=== PATIENT | male | born 1940 | race Caucasian/White ===

== ENCOUNTER 2022-03-15 23:15 | Inpatient (IN) | payer MEDICARE ==
[2022-03-15] MEDS ORDERED: MORPHINE SULFATE 4 MG/ML SYRINGE IV STA (23:19)
[2022-03-15] MEDS ORDERED: ONDANSETRON 4 MG/2 ML VIAL IVP STA (23:19)
[2022-03-15] MEDS ORDERED: SODIUM CHLORIDE 0.9% 1,000 ML IV STA (23:19)
--- NOTE | 2022-03-15 23:21 | ED ---
Abdominal Pain HPI - General Chief Complaint: Abdominal Pain Stated Complaint: Abdominal pain Time Seen by Provider: 03/15/22 23:17 Source: patient Mode of arrival: EMS Limitations: no limitations - Related Data Home Medications Medication Instructions Recorded Confirmed Acetaminophen [Tylenol] 650 mg PO Q4H PRN 01/01/22 01/01/22 Aspirin EC [Ecotrin Low Dose] 81 mg PO HS 01/01/22 01/01/22 Atorvastatin [Lipitor] 80 mg PO HS 01/01/22 01/01/22 Docusate [Colace] 100 mg PO DAILY PRN 01/01/22 01/01/22 Famotidine [Pepcid] 20 mg PO DAILY 01/01/22 01/01/22 Levothyroxine Sodium [Synthroid] 150 mcg PO DAILY 01/01/22 01/01/22 Metoprolol Tartrate [Lopressor] 12.5 mg PO BID 01/01/22 01/01/22 Potassium Chloride [Potassium 10 meq PO HS 01/01/22 01/01/22 Chloride ER] Sacubitril/Valsartan [Entresto 49 1 tab PO BID 01/01/22 01/01/22 mg-51 mg Tablet] Tamsulosin HCl [Flomax] 0.4 mg PO DAILY 01/01/22 01/01/22 Previous Rx's Medication Instructions Recorded Apixaban [Eliquis] 5 mg PO BID #60 tab 01/03/22 Furosemide [Lasix] 20 mg PO DAILY #30 tab 01/05/22 Insulin Glargine [Lantus Vial] 14 unit SQ HS #0 01/05/22 hydrALAZINE HCL [Apresoline] 25 mg PO TID #90 tab 01/05/22 Allergies Allergy/AdvReac Type Severity Reaction Status Date / Time Penicillins Allergy Rash/Hives Verified 03/15/22 23:20 on entire body Review of Systems ROS Statement: Those systems with pertinent positive or pertinent negative responses have been documented in the HPI. ROS Other: All systems not noted in ROS Statement are negative. Past Medical History Past Medical History: Cancer, Diabetes Mellitus, Hypertension, Myocardial Infarction ([place]), Thyroid Disorder Additional Past Medical History / Comment(s): prostate cancer, pacer/defibrillat or Last Myocardial Infarction Date:: 2017 History of Any Multi-Drug Resistant Organisms: None Reported Past Surgical History: Coronary Bypass/CABG, Heart Catheterization With Stent, Orthopedic Surgery, Tonsillectomy Additional Past Surgical History / Comment(s): triple bypass and then pacer/defib placed Past Anesthesia/Blood Transfusion Reactions: No Reported Reaction Date of Last Stent Placement:: 2017 Past Psychological History: No Psychological Hx Reported Smoking Status: Never smoker Past Alcohol Use History: None Reported Past Drug Use History: None Reported - Past Family History Mother Family Medical History: Cancer Father Family Medical History: Congestive Heart Failure (CHF) General Exam Limitations: no limitations Course Vital Signs 03/15/22 23:16 Temperature 99.6 F Pulse Rate 103 H Respiratory 22 Rate Blood Pressure 138/70 O2 Sat by Pulse 95 Oximetry Medical Decision Making - Lab Data Result diagrams: 03/15/22 23:22 Lab Results 03/15/22 03/15/22 Range/Units 23:22 23:22 WBC 9.5 (3.8-10.6) k/uL RBC 4.35 (4.30-5.90) m/uL Hgb 12.6 L (13.0-17.5) gm/dL Hct 39.2 (39.0-53.0) % MCV 90.2 (80.0-100.0) fL MCH 28.9 (25.0-35.0) pg MCHC 32.1 (31.0-37.0) g/dL RDW 14.8 (11.5-15.5) % Plt Count 171 (150-450) k/uL MPV 9.1 Neutrophils % 94 % Lymphocytes % 3 % Monocytes % 2 % Eosinophils % 1 % Basophils % 0 % Neutrophils # 8.9 H (1.3-7.7) k/uL Lymphocytes # 0.2 L (1.0-4.8) k/uL Monocytes # 0.2 (0-1.0) k/uL Eosinophils # 0.0 (0-0.7) k/uL Basophils # 0.0 (0-0.2) k/uL Plasma Lactic Acid Álvaro 1.2 (0.7-2.0) mmol/L Disposition Clinical Impression: Abdominal pain, Abdominal colic, Acute cholecystitis Disposition: ADMITTED IP TO THIS [facility] Condition: Fair Is patient prescribed a controlled substance at d/c from ED?: No Referrals: Nonstaff,Physician [Primary Care Provider] - 1-2 days
[2022-03-15 23:38] LABS: Basophils % (A) 0 %; Eosinophils % (A) 1 %; HCT 39.2 % (39.0-53.0); HGB 12.6 gm/dL (13.0-17.5); Lymphocytes # (A) 0.2 k/uL (1.0-4.8); Lymphocytes % (A) 3 %; MCH 28.9 pg (25.0-35.0); MCHC 32.1 g/dL (31.0-37.0); MCV 90.2 fL (80.0-100.0); Mean Platelet Volume 9.1; Monocytes # (A) 0.2 k/uL (0-1.0); Monocytes % (A) 2 %; Neutrophils # (A) 8.9 k/uL (1.3-7.7); Neutrophils % (A) 94 %; Platelet Count 171 k/uL (150-450); RBC 4.35 m/uL (4.30-5.90); RDW 14.8 % (11.5-15.5); WBC 9.5 k/uL (3.8-10.6)
[2022-03-15 23:49] LABS: ALT 16 U/L (4-49); AST 27 U/L (17-59); African American GFR (CKD) 69 (>60 ml/min/1.73 sqM); Albumin 3.1 g/dL (3.5-5.0); Alkaline Phosphatase 89 U/L (38-126); Amylase <30 U/L (30-110); Anion Gap 7 mmol/L; Blood Urea Nitrogen 36 mg/dL (9-20); Calcium 9.2 mg/dL (8.4-10.2); Carbon Dioxide 24 mmol/L (22-30); Chloride 104 mmol/L (98-107); Glucose 228 mg/dL (74-99); INR 1.1 (<1.2); Lipase 17 U/L (23-300); Non-African American GFR(CKD) 60 (>60 ml/min/1.73 sqM); Partial Thromboplastin Time 29.2 sec (22.0-30.0); Potassium 4.2 mmol/L (3.5-5.1); Prothrombin Time 11.4 sec (9.0-12.0); Sodium 135 mmol/L (137-145); Total Bilirubin 0.8 mg/dL (0.2-1.3); Total Protein 6.3 g/dL (6.3-8.2)
[2022-03-15] MEDS ORDERED: NALOXONE 0.4 MG/ML 1 ML VIAL IV PRN (23:53)
[2022-03-15] MEDS ORDERED: ONDANSETRON 4 MG/2 ML VIAL IVP PRN (23:53)
[2022-03-16] MEDS: LEVOFLOXACIN 500MG-D5W PMX 500 MG in DEXTROSE/WATER 1 100ML.BAG IVPB SCH (02:02)
[2022-03-16 04:32] LABS: Albumin 2.6 g/dL (3.5-5.0); Calcium 8.8 mg/dL (8.4-10.2); Magnesium 1.9 mg/dL (1.6-2.3); Phosphorus 3.8 mg/dL (2.5-4.5); Potassium 4.5 mmol/L (3.5-5.1); Total Bilirubin 0.9 mg/dL (0.2-1.3); Total Protein 5.6 g/dL (6.3-8.2)
[2022-03-16 04:50] LABS: HCT 36.7 % (39.0-53.0); HGB 12.1 gm/dL (13.0-17.5); MCH 30.5 pg (25.0-35.0); MCHC 33.1 g/dL (31.0-37.0); MCV 92.1 fL (80.0-100.0); Mean Platelet Volume 9.9; Platelet Count 139 k/uL (150-450); RBC 3.98 m/uL (4.30-5.90); RDW 15.3 % (11.5-15.5)
[2022-03-16 05:42] LABS: Basophils % (A) 0 %; Eosinophils % (A) 0 %; Lymphocytes % (A) 7 %; Monocytes % (A) 3 %; Neutrophils % (A) 85 %
[2022-03-16] MEDS: metroNIDAZOLE-NS PMX 500 MG in SALINE 1 100ML.BAG IVPB SCH ×4 (05:58→22:58)
--- NOTE | 2022-03-16 07:21 | P.HPIM ---
History of Present Illness H&P Date: 03/16/22 Patient is an 81-year-old male with a PMH of A. fib on Eliquis, hypertension, hyperlipidemia, type II DM, CAD, and hypothyroidism who was transferred to the emergency room from [facility] for complaints of abdominal pain. Patient reports that he initially began experiencing right upper quadrant abdominal discomfort 3 weeks ago. He reports mild anorexia but denied nausea, vomiting, or diarrhea. The patient is somewhat of a poor historian and is slow to respond but states that the pain is not strictly postprandial. He also reports intermittent shortness of breath which is chronic and unchanged. The patient underwent a CT abdomen and pelvis at the transferring facility which revealed mild gallbladder wall thickening with cholelithiasis along with a well-circumscribed lobulated peripherally enhancing collection in the anterior aspect of the abdomen extending inferiorly into the pelvis 3.1 x 7.9 cm, possibly due to gallbladder perforation or infectious/inflammatory colitis. Laboratory evaluation was remarkable for platelet count of 139, BUN 36, creatinine 1.4, unremarkable LFTs, lactic acid 2.0 from the transferring facility which improved to 1.2 upon repeat. Of note, case was discussed with general surgeon by the ED physician. I reiterated to the ED physician that the patient would be best suited being admitted under the surgery service. Provider noted that surgeon on-call insisted that the patient be admitted under medicine. Review of systems: Pertinent positives and negatives as discussed in HPI, a complete review of systems was performed and all other systems are negative. Physical examination: General: non toxic, no distress, appears at stated age, normal weight Derm: no unusual rashes/lesions, warm Head: atraumatic, normocephalic, symmetric Eyes: EOMI, no lid lag, anicteric sclera, pupils equal round reactive to light ENT: Nose and ears atraumatic Neck: No cervical lymphadenopathy, trachea midline, supple Mouth: no lip lesion, mucus membranes moist Cardiovascular: S1S2 reg, no murmur, positive dorsalis pedis pulse bilateral, no edema Lungs: CTA bilateral, no rhonchi, no rales, no accessory muscle use Abdominal: soft, mild right upper quadrant tenderness, no guarding Ext: muscle strength 5 out of 5 in all 4 extremities grossly, no gross muscle atrophy, no contractures, Neuro: CN II-XI grossly intact, no gross focal neuro deficits Psych: Alert, oriented, appropriate affect Assessment/plan Right upper quadrant abdominal discomfort with abscess, possible perforated cholecystitis -Continue with IV antibiotics -General surgery consulted -IV fluids -Pain control -Antiemetics -Nothing by mouth for now -Right upper quadrant ultrasound -Hold patient's Eliquis in anticipation of possible surgical intervention Chronic conditions: A. fib, hypertension, hyperlipidemia, type II DM, CAD, hypothyroidism -Hold patient's anticoagulation in anticipation of surgery -Insulin sliding scale and blood glucose monitoring -Patient currently nothing by mouth DVT prophylaxis -Eliquis The patient is admitted with an anticipated lessthan 2 midnight stay for evaluation of cholecystitis CODE STATUS: Full Code Discussed with: Patient Anticipated discharge date: in am Anticipated discharge place: Home Past Medical History Past Medical History: Cancer, Diabetes Mellitus, Hypertension, Myocardial Infarction ([place]), Thyroid Disorder Additional Past Medical History / Comment(s): prostate cancer, pacer/defibrillator Last Myocardial Infarction Date:: 2017 History of Any Multi-Drug Resistant Organisms: None Reported Past Surgical History: Coronary Bypass/CABG, Heart Catheterization With Stent, Orthopedic Surgery, Tonsillectomy Additional Past Surgical History / Comment(s): triple bypass and then pacer/defib placed Past Anesthesia/Blood Transfusion Reactions: No Reported Reaction Date of Last Stent Placement:: 2017 Past Psychological History: No Psychological Hx Reported Smoking Status: Never smoker Past Alcohol Use History: None Reported Past Drug Use History: None Reported - Past Family History Mother Family Medical History: Cancer Father Family Medical History: Congestive Heart Failure (CHF) Medications and Allergies Home Medications Medication Instructions Recorded Confirmed Type Acetaminophen [Tylenol] 650 mg PO Q4H PRN 01/01/22 01/01/22 History Aspirin EC [Ecotrin Low Dose] 81 mg PO HS 01/01/22 01/01/22 History Atorvastatin [Lipitor] 80 mg PO HS 01/01/22 01/01/22 History Docusate [Colace] 100 mg PO DAILY PRN 01/01/22 01/01/22 History Famotidine [Pepcid] 20 mg PO DAILY 01/01/22 01/01/22 History Levothyroxine Sodium [Synthroid] 150 mcg PO DAILY 01/01/22 01/01/22 History Metoprolol Tartrate [Lopressor] 12.5 mg PO BID 01/01/22 01/01/22 History Potassium Chloride [Potassium 10 meq PO HS 01/01/22 01/01/22 History Chloride ER] Sacubitril/Valsartan [Entresto 49 1 tab PO BID 01/01/22 01/01/22 History mg-51 mg Tablet] Tamsulosin HCl [Flomax] 0.4 mg PO DAILY 01/01/22 01/01/22 History Apixaban [Eliquis] 5 mg PO BID #60 tab 01/03/22 Rx Furosemide [Lasix] 20 mg PO DAILY #30 tab 01/05/22 Rx Insulin Glargine [Lantus Vial] 14 unit SQ HS #0 01/05/22 01/01/22 Rx hydrALAZINE HCL [Apresoline] 25 mg PO TID #90 tab 01/05/22 Rx Allergies Allergy/AdvReac Type Severity Reaction Status Date / Time Penicillins Allergy Rash/Hives Verified 03/15/22 23:20 on entire body Physical Exam Vitals: Vital Signs Temp Pulse Resp BP Pulse Ox 03/16/22 00:10 98.9 F 103 H 22 115/67 95 03/15/22 23:16 99.6 F 103 H 22 138/70 95 Intake and Output 03/15/22 03/15/22 03/16/22 14:59 22:59 06:59 Other: Weight 100.698 kg Results CBC & Chem 7: 03/16/22 03:26 03/16/22 03:26 Labs: Abnormal Lab Results - Last 24 Hours (Table) 03/15/22 03/15/22 Range/Units 23:22 23:22 Hgb 12.6 L (13.0-17.5) gm/dL Neutrophils # 8.9 H (1.3-7.7) k/uL Lymphocytes # 0.2 L (1.0-4.8) k/uL Sodium 135 L (137-145) mmol/L BUN 36 H (9-20) mg/dL Glucose 228 H (74-99) mg/dL Albumin 3.1 L (3.5-5.0) g/dL Amylase <30 L (30-110) U/L Lipase 17 L (23-300) U/L Thrombosis Risk Factor Assmnt - Choose All That Apply Each Factor Represents 1 point: Obesity (BMI >25) Each Risk Factor Represents 3 Points: Age 75 years or older Other congenital or acquired thrombophilia - If yes, enter type in comment: No Thrombosis Risk Factor Assessment Total Risk Factor Score: 4 Thrombosis Risk Factor Assessment Level: Moderate Risk
[2022-03-16 07:52] LABS: Glucose,Whole Blood 210 mg/dL (70-110)
[2022-03-16] MEDS: MORPHINE SULFATE 4 MG/ML SYRINGE IV PRN ×2 (08:04→12:28)
[2022-03-16] MEDS: INSULIN ASPART (NovoLOG) 100 UNIT/ML VIAL SQ SCH ×4 (08:04→20:45)
--- NOTE | 2022-03-16 08:55 | US ---
EXAMINATION TYPE: US gallbladder DATE OF EXAM: 03/16/2022 COMPARISON: Outside CT in PACS CLINICAL HISTORY: pain. TECHNIQUE: Multiple sonographic images of the right upper quadrant are obtained. FINDINGS: EXAM MEASUREMENTS: Liver Length: 16.7 cm Gallbladder Wall: 0.9 cm CBD: 0.6 cm Right Kidney: 11.9 x 5.9 x 4.9 cm [employer] NOTES: Limited views obtained, extensive midline bowel gas making exam technically difficult There is a fluid collection with internal debris extending from right upper quadrant into right lower quadrant it is somewhat lobulated in shape. This would correlate with the finding on the CT examinat ion. Pancreas: Obscured by bowel gas Liver: very limited views obtained, no obvious mass Gallbladder: wall thickening, irregular contour, stones CBD: wnl Right Kidney: limited views show no hydronephrosis or obvious mass IMPRESSION: 1. Cholelithiasis. Correlate for acute cholecystitis. 2. Complex collection right abdomen corresponding to the CT findings.
[2022-03-16] MEDS: SODIUM CHLORIDE 0.9% 1,000 ML IV SCH ×2 (10:28→17:13)
[2022-03-16 12:18] LABS: Glucose,Whole Blood 161 mg/dL (70-110)
[2022-03-16] MEDS ORDERED: DOCUSATE 100 MG CAP PO PRN (12:23)
--- NOTE | 2022-03-16 12:32 | P.GSCN ---
History of Present Illness Consult date: 03/16/22 Reason for Consult: Abdominal pain, question of cholecystitis, right lower quadrant intra-abdominal fluid collection, history of oral anticoagulation on Eliquis History of present illness: Patient is an 81-year-old gentleman transferred to [facility] emergency department from [facility] in the late evening of 03/15/2022. He tells me that these been suffering with some 5 days of progressive predominantly right-sided and right lower quadrant abdominal pain without radiation to the shoulder, flanks or back. He denies any aliment of postprandial exacerbations. He has had a tendon waxing and waning nausea and 1 or 2 bouts of nonbloody emesis. He denies fever or chills. He tells me he has history of slightly similar cramping pains on and off over the years that he's been attributing to constipation. He does not recall ever having undergone abdominal surgery but he thinks he may have undergone some manner of procedure for prostate cancer within the past few weeks. He relates a history of heart attack in 2017, had what sounds like a single-vessel coronary artery bypass grafting and pacer defibrillator placement. He is maintained on Eliquis and has history of insulin-dependent diabetes mellitus. Laboratory studies on presentation were relatively unimpressive with a white blood cell count of 9.5 which trended down to 4.0 today. The hemoglobin was 12.6 on presentation and is stable today at 12.1. Platelet count is slightly low at 139. Serum sodium was very slightly low at 135, potassium 4.2, CO2 normal range at 24 and is now slightly low at 19, creatinine acceptable at 1.14. Glucose was high at 228. AST and ALT were normal at 27 and 16 respectively, alkaline phosphatase only normal at 89, total bilirubin normal at 0.8. Amylase and lipase were normal range at below detectable threshold and 17 respectively. Albumin was low at 3.1. INR normal at 1.1. Venous lactate was normal range at 1.2. His clinical history was suspicious for a degree of acute cholecystitis, patient was admitted to medicine with arrangements for abdominal ultrasound in the morning. Review of computed tomography scan obtained at [facility] shows a degree of cholelithiasis with mild wall thickening and a 20 x 5 cm or so contained fluid collection extending from the right lateral abdomen down into the pelvis with peripheral enhancement with adjacent wall thickening of the descending colon. Report suggested that it may be related to gallbladder perforation or infectious or inflammatory colitis. There were no discrete signs of appendicitis seen. Review of the images reveals no free air no free fluid aside from this contained collection on the right. There are diffuse atherosclerotic calcifications seen. Abdominal ultrasound was somewhat limited there was evidence of the previously described fluid collection and cholelithiasis. He tells me today that he is feeling about the same as yesterday but today he was resting comfortably. He's been afebrile since presentation does show a mild tachycardia in the low 100s, may be relatively hypotensive with systolic blood pressures that range from 149- 110. Review of Systems All systems: negative - Constitutional Reports as per HPI Past Medical History Past Medical History: Cancer, Diabetes Mellitus, Hypertension, Myocardial Infarction ([place]), Thyroid Disorder Additional Past Medical History / Comment(s): prostate cancer, pacer/defibrillator Last Myocardial Infarction Date:: 2017 History of Any Multi-Drug Resistant Organisms: None Reported Past Surgical History: Coronary Bypass/CABG, Heart Catheterization With Stent, Orthopedic Surgery, Tonsillectomy Additional Past Surgical History / Comment(s): triple bypass and then pacer/defib placed Past Anesthesia/Blood Transfusion Reactions: No Reported Reaction Date of Last Stent Placement:: 2017 Past Psychological History: No Psychological Hx Reported Smoking Status: Never smoker Past Alcohol Use History: None Reported Past Drug Use History: None Reported - Past Family History Mother Family Medical History: Cancer Father Family Medical History: Congestive Heart Failure (CHF) Medications and Allergies Home Medications Medication Instructions Recorded Confirmed Type Acetaminophen [Tylenol] 650 mg PO Q4H PRN 01/01/22 01/01/22 History Aspirin EC [Ecotrin Low Dose] 81 mg PO HS 01/01/22 01/01/22 History Atorvastatin [Lipitor] 80 mg PO HS 01/01/22 01/01/22 History Docusate [Colace] 100 mg PO DAILY PRN 01/01/22 01/01/22 History Famotidine [Pepcid] 20 mg PO DAILY 01/01/22 01/01/22 History Levothyroxine Sodium [Synthroid] 150 mcg PO DAILY 01/01/22 01/01/22 History Metoprolol Tartrate [Lopressor] 12.5 mg PO BID 01/01/22 01/01/22 History Potassium Chloride [Potassium 10 meq PO HS 01/01/22 01/01/22 History Chloride ER] Sacubitril/Valsartan [Entresto 49 1 tab PO BID 01/01/22 01/01/22 History mg-51 mg Tablet] Tamsulosin HCl [Flomax] 0.4 mg PO DAILY 01/01/22 01/01/22 History Apixaban [Eliquis] 5 mg PO BID #60 tab 01/03/22 Rx Furosemide [Lasix] 20 mg PO DAILY #30 tab 01/05/22 Rx Insulin Glargine [Lantus Vial] 14 unit SQ HS #0 01/05/22 01/01/22 Rx hydrALAZINE HCL [Apresoline] 25 mg PO TID #90 tab 01/05/22 Rx Allergies Allergy/AdvReac Type Severity Reaction Status Date / Time Penicillins Allergy Rash/Hives Verified 03/15/22 23:20 on entire body Surgical - Exam Osteopathic Statement: *. No significant issues noted on an osteopathic struct ural exam other than those noted in the History and Physical/Consult. Vital Signs Temp Pulse Resp BP Pulse Ox 99.6 F 103 H 22 138/70 95 03/15/22 23:16 03/15/22 23:16 03/15/22 23:16 03/15/22 23:16 03/15/22 23:16 - General well developed, well nourished - Eyes PERRL, normal ocular movement - ENT normal pinna, normal nares, normal mucosa - Neck trachea midline - Respiratory normal expansion, normal respiratory effort, clear to auscultation - Cardiovascular Rhythm: regular - Abdomen There is mild diffuse tenderness to palpation and more focal right lateral tenderness to palpation with localized rebound, equivocal guarding. No clinical signs of jaundice. Results - Labs 03/16/22 03:26 03/16/22 03:26 Abnormal Lab Results - Last 24 Hours (Table) 03/15/22 03/15/22 03/16/22 Range/Units 23:22 23:22 03:26 RBC 3.98 L (4.30-5.90) m/uL Hgb 12.6 L 12.1 L (13.0-17.5) gm/dL Hct 36.7 L (39.0-53.0) % Plt Count 139 L (150-450) k/uL Neutrophils # 8.9 H (1.3-7.7) k/uL Lymphocytes # 0.2 L (1.0-4.8) k/uL Sodium 135 L (137-145) mmol/L Carbon Dioxide (22-30) mmol/L BUN 36 H (9-20) mg/dL Glucose 228 H (74-99) mg/dL POC Glucose (mg/dL) (70-110) mg/dL Total Protein (6.3-8.2) g/dL Albumin 3.1 L (3.5-5.0) g/dL Amylase <30 L (30-110) U/L Lipase 17 L (23-300) U/L 03/16/22 03/16/22 Range/Units 03:26 07:50 RBC (4.30-5.90) m/uL Hgb (13.0-17.5) gm/dL Hct (39.0-53.0) % Plt Count (150-450) k/uL Neutrophils # (1.3-7.7) k/uL Lymphocytes # (1.0-4.8) k/uL Sodium 133 L (137-145) mmol/L Carbon Dioxide 19 L (22-30) mmol/L BUN 37 H (9-20) mg/dL Glucose 249 H (74-99) mg/dL POC Glucose (mg/dL) 210 H (70-110) mg/dL Total Protein 5.6 L (6.3-8.2) g/dL Albumin 2.6 L (3.5-5.0) g/dL Amylase (30-110) U/L Lipase (23-300) U/L Diabetes panel 03/15/22 03/16/22 Range/Units 23:22 03:26 Sodium 135 L 133 L (137-145) mmol/L Potassium 4.2 4.5 (3.5-5.1) mmol/L Chloride 104 107 (98-107) mmol/L Carbon Dioxide 24 19 L (22-30) mmol/L BUN 36 H 37 H (9-20) mg/dL Creatinine 1.14 1.19 (0.66-1.25) mg/dL Glucose 228 H 249 H (74-99) mg/dL Calcium 9.2 8.8 (8.4-10.2) mg/dL AST 27 25 (17-59) U/L ALT 16 13 (4-49) U/L Alkaline Phosphatase 89 67 (38-126) U/L Total Protein 6.3 5.6 L (6.3-8.2) g/dL Albumin 3.1 L 2.6 L (3.5-5.0) g/dL Calcium panel 03/15/22 03/16/22 Range/Units 23:22 03:26 Calcium 9.2 8.8 (8.4-10.2) mg/dL Phosphorus 3.8 (2.5-4.5) mg/dL Albumin 3.1 L 2.6 L (3.5-5.0) g/dL Pituitary panel 03/15/22 03/16/22 Range/Units 23:22 03:26 Sodium 135 L 133 L (137-145) mmol/L Potassium 4.2 4.5 (3.5-5.1) mmol/L Chloride 104 107 (98-107) mmol/L Carbon Dioxide 24 19 L (22-30) mmol/L BUN 36 H 37 H (9-20) mg/dL Creatinine 1.14 1.19 (0.66-1.25) mg/dL Glucose 228 H 249 H (74-99) mg/dL Calcium 9.2 8.8 (8.4-10.2) mg/dL Adrenal panel 03/15/22 03/16/22 Range/Units 23:22 03:26 Sodium 135 L 133 L (137-145) mmol/L Potassium 4.2 4.5 (3.5-5.1) mmol/L Chloride 104 107 (98-107) mmol/L Carbon Dioxide 24 19 L (22-30) mmol/L BUN 36 H 37 H (9-20) mg/dL Creatinine 1.14 1.19 (0.66-1.25) mg/dL Glucose 228 H 249 H (74-99) mg/dL Calcium 9.2 8.8 (8.4-10.2) mg/dL Total Bilirubin 0.8 0.9 (0.2-1.3) mg/dL AST 27 25 (17-59) U/L ALT 16 13 (4-49) U/L Alkaline Phosphatase 89 67 (38-126) U/L Total Protein 6.3 5.6 L (6.3-8.2) g/dL Albumin 3.1 L 2.6 L (3.5-5.0) g/dL - Imaging CT scan - abdomen: report reviewed, image reviewed CT scan - pelvis: report reviewed, image reviewed US - abdomen: report reviewed, image reviewed Assessment and Plan Assessment: 81-year-old gentleman with 5 day history of progressive right-sided abdominal pain, nausea and imaging showing a contained intra-abdominal right-sided fluid collection with peripheral enhancement extending from the right lateral to right upper quadrant down to the pelvis. He does not have a flagrantly septic appearance, venous lactate was normal range on presentation. He's been afebrile since admission. Differential diagnosis would include acute cholecystitis with rupture but the patient has no elevation of liver function studies, particularly his bilirubin is normal range. Normally with biloma we'll see some elevation of direct bilirubin. Would also include a perforated viscus or ruptured appendicitis with abscess but his amylase and lipase are normal range and there is no air within the fluid cavity and his white blood cell count is relatively unimpressive. A third possibility could be a spontaneous intra- abdominal or retroperitoneal hematoma which might be the more likely cause in the setting of Eliquis and the general appearance of the fluid collection on ultrasound, he doesn't have an antecedent history of trauma. Attendant history of coronary artery disease, previous myocardial infarction in [id number] with coronary artery bypass grafting, pacer defibrillator placement,, oral anticoagulation on Eliquis, insulin-dependent diabetes mellitus and history of prostate cancer. Plan: Options for treatment were discussed with the patient. He was offered initial surgical exploration versus initial image guided drain placement. He is high risk for bleeding with laparotomy in the short term given his outpatient Eliquis. In the setting of cholecystitis with perforation and abscess he will be a higher risk for intraoperative injury. I think the best way to start from both a diagnostic and therapeutic standpoint would be image guided drainage with cytology, Gram stain and culture, patient's in agreement. He's been started on Levaquin and Flagyl, he has a penicillin ALLERGY. This will be continued. Blood cultures and urinalysis will be obtained. He'll be kept nothing by mouth and started on IV fluids at a more or less maintenance rate to avoid potential volume overload given his relatively advanced age and cardiac history. Eliquis should be held for now. Okay for prophylactic dose heparin. We will see what the image guided drainage procedure yields and move forward from there. If he has interval clinical decline we may need to adjust our plan. Time with Patient: Greater than 30
[2022-03-16] MEDS ORDERED: SODIUM CHLORIDE 0.9% 500 ML 500 ML IV ONE ×2 (14:05→21:16)
[2022-03-16] MEDS: hydrALAZINE HCL 25 MG TAB PO SCH ×2 (16:01→20:33)
[2022-03-16 16:49] LABS: Glucose,Whole Blood 159 mg/dL (70-110)
[2022-03-16 17:15] LABS: Appearance,Urine Cloudy (Clear); Bacteria,Urine Few /hpf; Bilirubin,Urine 1+ (Negative); Blood,Urine Large (Negative); Color,Urine Dark Brown; Glucose,Urine (UA) Negative (Negative); Hyaline Casts,Urine 15 /lpf (0-2); Ketones,Urine Negative (Negative); Leukocyte Esterase,Urine Small (Negative); Mucus,Urine Few /hpf; Nitrite,Urine Negative (Negative); PH, Urine 5.5 (5.0-8.0); Protein,Urine 2+ (Negative); RBC,Urine >182 /hpf (0-5); Squamous Epithelial Cell,Urine 1 /hpf (0-4); WBC,Urine 17 /hpf (0-5)
[2022-03-16 17:19] LABS: Specific Gravity,Urine 1.041 (1.001-1.035)
[2022-03-16 19:56] LABS: Glucose,Whole Blood 154 mg/dL (70-110)
[2022-03-16] MEDS: INSULIN DETEMIR (LEVEMIR) 100 UNIT/ML SYR SQ SCH (20:35)
[2022-03-16] MEDS: ATORVASTATIN 80 MG TAB PO SCH (20:47)
[2022-03-16] MEDS ORDERED: NON FORMULARY DRUG (Aspirin Ec 81 MG Tablet) PO SCH (21:00)
[2022-03-16] MEDS ORDERED: SACUBITRIL/VALSARTAN 49 MG-51 MG TABLET PO SCH (21:00)
--- NOTE | 2022-03-16 21:09 | P.PN ---
Progress Note - Text Progress Note Date: 03/16/22 Patient reassessed for hypotension and mild tachycardia on the floor. He sleeping, comfortable at rest but arousable. He admits to persistent right- sided abdominal pain but no worse than earlier today. He remains afebrile. He is now manifesting some left-sided abdominal tenderness on exam in addition to his previously demonstrated right sided tenderness with rebound. He has a large right sided intra-abdominal fluid Collection of unclear etiology without associated air, without elevation of liver function studies. Differential diagnosis in continues to include ruptured cholecystitis versus perforated viscus versus spontaneous hematoma. His clinical appearance is equivocal for sepsis. Urinalysis shows 3+ blood, he tells me he's had problems with gross hematuria in the past. I think he is going to need a higher level of care in the hospital, will see about having him transferred to the stepdown unit for closer monitoring overnight. Will obtain repeat laboratory panel including CBCs, CMP and venous lactate. If there are new abnormalities we may need to consider more urgent surgical invention tonight, otherwise would stick to plan for image guided drainage tomorrow for initial source control.
[2022-03-16] MEDS ORDERED: SODIUM CHLORIDE 0.9% 1,000 ML IV SCH (21:15)
[2022-03-16 21:35] LABS: Basophils % (A) 0 %; Eosinophils % (A) 0 %; HGB 11.4 gm/dL (13.0-17.5); Lymphocytes # (A) 0.2 k/uL (1.0-4.8); Lymphocytes % (A) 3 %; MCH 29.2 pg (25.0-35.0); MCHC 31.7 g/dL (31.0-37.0); MCV 92.2 fL (80.0-100.0); Mean Platelet Volume 9.3; Monocytes # (A) 0.2 k/uL (0-1.0); Monocytes % (A) 3 %; Neutrophils # (A) 7.3 k/uL (1.3-7.7); Neutrophils % (A) 93 %; Platelet Count 161 k/uL (150-450); WBC 7.8 k/uL (3.8-10.6)
[2022-03-16 21:48] LABS: ALT 12 U/L (4-49); AST 22 U/L (17-59); African American GFR (CKD) 50 (>60 ml/min/1.73 sqM); Albumin 2.3 g/dL (3.5-5.0); Albumin/Globulin Ratio 0.8; Alkaline Phosphatase 62 U/L (38-126); Anion Gap 8 mmol/L; Blood Urea Nitrogen 46 mg/dL (9-20); Calcium 8.6 mg/dL (8.4-10.2); Carbon Dioxide 22 mmol/L (22-30); Chloride 108 mmol/L (98-107); Globulin 2.8 g/dL; Glucose 164 mg/dL (74-99); Non-African American GFR(CKD) 44 (>60 ml/min/1.73 sqM); Potassium 4.4 mmol/L (3.5-5.1); Sodium 138 mmol/L (137-145); Total Protein 5.1 g/dL (6.3-8.2)
[2022-03-16] MEDS: METOPROLOL TARTRATE 12.5 MG TAB PO SCH (22:39)
[2022-03-17] MEDS: LEVOFLOXACIN 500MG-D5W PMX 500 MG in DEXTROSE/WATER 1 100ML.BAG IVPB SCH (00:04)
[2022-03-17] MEDS ORDERED: SODIUM CHLORIDE 0.9% 500 ML 500 ML IV ONE (03:13)
[2022-03-17] MEDS: LEVOTHYROXINE 75 MCG TAB PO SCH (03:38)
[2022-03-17] MEDS: metroNIDAZOLE-NS PMX 500 MG in SALINE 1 100ML.BAG IVPB SCH ×4 (06:10→23:43)
[2022-03-17 06:16] LABS: Glucose,Whole Blood 159 mg/dL (70-110)
[2022-03-17] MEDS: INSULIN ASPART (NovoLOG) 100 UNIT/ML VIAL SQ SCH ×4 (06:16→20:27)
[2022-03-17] MEDS: METOPROLOL TARTRATE 12.5 MG TAB PO SCH ×2 (08:30→20:28)
[2022-03-17] MEDS: FAMOTIDINE 20 MG TAB PO SCH (08:30)
[2022-03-17] MEDS: TAMSULOSIN 0.4 MG CAP.ER.24H PO SCH (08:31)
[2022-03-17] MEDS ORDERED: FUROSEMIDE 20 MG TAB PO SCH (09:00)
--- NOTE | 2022-03-17 09:29 | XR ---
EXAMINATION TYPE: XR chest 1V portable DATE OF EXAM: 03/17/2022 Comparison: 01/01/2022 Clinical History: 81 year-old male shortness of breath Findings: Very low lung volumes with crowded vascular markings. Left anterior chest wall AICD generator with ri ght ventricular lead. Median sternotomy wires with post-CABG clips in the mediastinum. The visualized upper and mid lungs appear clear. Limited visualization of the lung bases due to the elevated hemidi aphragms. Old healed right-sided rib fracture deformities. Impression: Continued marked hypoventilatory changes. Visualized upper and mid lungs appear clear. Limited visual ization of the lower lungs due to elevated hemidiaphragms.
[2022-03-17 11:10] LABS: African American GFR (CKD) 42.3 (60.0-200.0); Albumin 2.4 g/dL (3.8-4.9); Anion Gap 7.4 mmol/L (10.00-18.00); BUN/Creat Ratio 28.35 Ratio (12.00-20.00); Blood Urea Nitrogen 48.2 mg/dL (9.0-27.0); Calcium 8.6 mg/dL (8.7-10.3); Carbon Dioxide 23.6 mmol/L (20.0-27.5); Globulin 2.4 g/dL (1.6-3.3); Non-African American GFR(CKD) 36.5 (60.0-200.0); Potassium 4.4 mmol/L (3.5-5.5); Total Bilirubin 0.8 mg/dL (0.30-1.20); Total Protein 4.8 g/dL (6.2-8.2)
[2022-03-17 11:21] VITALS: BMI 30.1
--- NOTE | 2022-03-17 11:24 | XR ---
KUB HISTORY: Pain Frontal KUB on 2 images, correlation to CT from outside institution 03/15/2022 The patient's abnormal fluid collection seen on prior CT is not visible on plain film. Patient is pos t median sternotomy. Intracardiac lead is present. No evidence of bowel obstruction or pneumoperitone um. Postop changes are noted to the right proximal femur. There are dense vascular calcifications are noted. Bone mineralization is reduced. Degenerative disc changes are present in the visualized spine . Abnormal basilar density present at the right lung base, there is blunting of the costophrenic angl e on the right. IMPRESSION: Basilar atelectasis and associated effusion. No evidence of bowel obstruction. Additional findings above.
[2022-03-17 11:39] LABS: Glucose,Whole Blood 165 mg/dL (70-110)
--- NOTE | 2022-03-17 12:43 | P.PN ---
Subjective Progress Note Date: 03/17/22 Principal diagnosis: Abdominal pain, intra-abdominal fluid collection Patient is picked up on rounds. He still having some pain in the right side of his abdomen. He is hungry. Denies nausea or vomiting. Denies fever or chills. Objective - Vital Signs Vital signs: Vital Signs Temp 98.5 F 03/17/22 11:54 Pulse 96 03/17/22 11:54 Resp 18 03/17/22 11:54 BP 107/61 03/17/22 11:54 Pulse Ox 95 03/17/22 11:54 FiO2 Intake & Output 03/16/22 03/17/22 03/17/22 18:59 06:59 18:59 Intake Total 0 Output Total 525 200 Balance -525 -200 Weight 100.698 kg Intake: Oral 0 Output: Urine 525 200 Other: Voiding Method Indwelling Catheter Indwelling Catheter Indwelling Catheter - Constitutional General appearance: Present: cooperative, no acute distress - Gastrointestinal General gastrointestinal: Present: decreased bowel sounds, distended (Softly distended), tenderness (Right-sided abdominal tenderness without guarding or rebound) - Labs CBC & Chem 7: 03/16/22 21:24 03/17/22 07:01 Labs: Abnormal Lab Results - Last 24 Hours (Table) 03/16/22 03/16/22 03/16/22 Range/Units 16:15 16:47 19:54 RBC (4.30-5.90) m/uL Hgb (13.0-17.5) gm/dL Hct (39.0-53.0) % Lymphocytes # (1.0-4.8) k/uL Chloride (98-107) mmol/L Anion Gap (10.00-18.00) mmol/L BUN (9-20) mg/dL Creatinine (0.66-1.25) mg/dL Est GFR (CKD-EPI)AfAm (60.0-200.0) Est GFR (CKD-EPI)NonAf (60.0-200.0) BUN/Creatinine Ratio (12.00-20.00) Ratio Glucose (74-99) mg/dL POC Glucose (mg/dL) 159 H 154 H (70-110) mg/dL Calcium (8.7-10.3) mg/dL Total Protein (6.3-8.2) g/dL Albumin (3.5-5.0) g/dL Albumin/Globulin Ratio (1.60-3.17) g/dL Ur Specific [place] 1.041 H (1.001-1.035) Urine Protein 2+ H (Negative) Urine Blood Large H (Negative) Urine Bilirubin 1+ H (Negative) Ur Leukocyte Esterase Small H (Negative) Urine RBC >182 H (0-5) /hpf Urine WBC 17 H (0-5) /hpf Urine Bacteria Few H (None) /hpf Hyaline Casts 15 H (0-2) /lpf Urine Mucus Few H (None) /hpf 03/16/22 03/16/22 03/17/22 Range/Units 21:24 21:24 06:14 RBC 3.90 L (4.30-5.90) m/uL Hgb 11.4 L (13.0-17.5) gm/dL Hct 36.0 L (39.0-53.0) % Lymphocytes # 0.2 L (1.0-4.8) k/uL Chloride 108 H (98-107) mmol/L Anion Gap (10.00-18.00) mmol/L BUN 46 H (9-20) mg/dL Creatinine 1.47 H (0.66-1.25) mg/dL Est GFR (CKD-EPI)AfAm (60.0-200.0) Est GFR (CKD-EPI)NonAf (60.0-200.0) BUN/Creatinine Ratio (12.00-20.00) Ratio Glucose 164 H (74-99) mg/dL POC Glucose (mg/dL) 159 H (70-110) mg/dL Calcium (8.7-10.3) mg/dL Total Protein 5.1 L (6.3-8.2) g/dL Albumin 2.3 L (3.5-5.0) g/dL Albumin/Globulin Ratio (1.60-3.17) g/dL Ur Specific [place] (1.001-1.035) Urine Protein (Negative) Urine Blood (Negative) Urine Bilirubin (Negative) Ur Leukocyte Esterase (Negative) Urine RBC (0-5) /hpf Urine WBC (0-5) /hpf Urine Bacteria (None) /hpf Hyaline Casts (0-2) /lpf Urine Mucus (None) /hpf 03/17/22 03/17/22 Range/Units 07:01 11:37 RBC (4.30-5.90) m/uL Hgb (13.0-17.5) gm/dL Hct (39.0-53.0) % Lymphocytes # (1.0-4.8) k/uL Chloride (98-107) mmol/L Anion Gap 7.40 L (10.00-18.00) mmol/L BUN 48.2 H (9-20) mg/dL Creatinine 1.7 H (0.66-1.25) mg/dL Est GFR (CKD-EPI)AfAm 42.3 L (60.0-200.0) Est GFR (CKD-EPI)NonAf 36.5 L (60.0-200.0) BUN/Creatinine Ratio 28.35 H (12.00-20.00) Ratio Glucose 158 H (74-99) mg/dL POC Glucose (mg/dL) 165 H (70-110) mg/dL Calcium 8.6 L (8.7-10.3) mg/dL Total Protein 4.8 L (6.3-8.2) g/dL Albumin 2.4 L (3.5-5.0) g/dL Albumin/Globulin Ratio 1.00 L (1.60-3.17) g/dL Ur Specific [place] (1.001-1.035) Urine Protein (Negative) Urine Blood (Negative) Urine Bilirubin (Negative) Ur Leukocyte Esterase (Negative) Urine RBC (0-5) /hpf Urine WBC (0-5) /hpf Urine Bacteria (None) /hpf Hyaline Casts (0-2) /lpf Urine Mucus (None) /hpf Microbiology - Last 24 Hours (Table) 03/16/22 16:15 Urine Culture - Preliminary Urine,Catheterized Assessment and Plan (1) Intra-abdominal fluid collection Current Visit: Yes Status: Acute Code(s): R18.8 - OTHER ASCITES SNOMED Code(s): 015552683 (2) Abdominal pain Current Visit: Yes Status: Acute Code(s): R10.9 - UNSPECIFIED ABDOMINAL PAIN SNOMED Code(s): 16224795 Plan: Patient is surgically stable. He is going for percutaneous aspiration/drainage of the intra-abdominal fluid collection with cultures and so forth this afternoon. This is likely a spontaneous hematoma. Liver function tests are all within normal range so I would don't the source of the fluid is biliary in nature. Nurse will notify me once the procedures completed and we'll decide on further course of action.
[2022-03-17 13:51] LABS: Basophils # (A) 0.03 X 10*3/uL (0.00-0.10); Basophils % (A) 0.3 %; Eosinophils # (A) 0 X 10*3/uL (0.04-0.35); Eosinophils % (A) 0 %; HCT 35.2 % (39.6-50.0); HGB 10.9 g/dL (13.0-17.0); Immature Grans, Automated 0.3 %; Lymphocytes # (A) 0.28 X 10*3/uL (0.90-5.00); Lymphocytes % (A) 3.2 %; MCH 28.4 pg (27.0-32.0); MCV 91.7 fL (80.0-97.0); Mean Platelet Volume 11.3 fL (9.5-12.2); Monocytes # (A) 0.46 X 10*3/uL (0.20-1.00); Monocytes % (A) 5.2 %; NRBC Per 100 WBC 0 /100 WBCS (0.0-0.0); Neutrophils # (A) 7.99 X 10*3/uL (1.80-7.70); Platelet Count 160 X 10*3/uL (140-440); RBC 3.84 X 10*6/uL (4.40-5.60); RDW 15.8 % (11.5-14.5); WBC 8.79 X 10*3/uL (4.50-10.00)
--- NOTE | 2022-03-17 13:56 | P.PCN ---
Date of Procedure: 03/17/22 Preoperative Diagnosis: abdominal fluid collection Postoperative Diagnosis: same Procedure(s) Performed: ct guide drain tube placement Anesthesia: local Estimated Blood Loss (ml): 2 Pathology: other (20 cc) Condition: stable Disposition: no change Operative Findings: brown clear fluid obtained, 8.5 fr tube right lower quadrant to gravity
--- NOTE | 2022-03-17 14:39 | CT ---
EXAMINATION TYPE: CT guided abscess drainage DATE OF EXAM: 03/17/2022 HISTORY: Abnormal intra-abdominal fluid collection COMPARISON: CT from outside institution 03/15/2022 PROCEDURE: Maximal barrier technique was utilized. The skin over suitable path to the abnormal right lower quad rant fluid collection was localized with CT and the overlying skin prepped and draped. Lidocaine was used for local anesthesia. A skin rudy made with a scalpel. Access was gained using CT guidance wi th a 21-gauge needle, purulent material returned in the hub of the needle. A 0.018 inch wire was adv anced and the access site was upsized, the wire was upsized and subsequently an 8.5-[place] drain was deployed within the abscess cavity and fixed in place. Catheter attached to gravity drainage. No im mediate complication. Purulent material sent for laboratory analysis and draining into the bag. The patient remained in stable condition. IMPRESSION: STATUS POST CT GUIDED ABDOMINAL FLUID COLLECTION DRAINAGE, MICROBIOLOGY ANALYSIS IS PENDING. THIS PA OCEDURE WAS PERFORMED BY THE UNDERSIGNED.
[2022-03-17 16:25] LABS: Glucose,Whole Blood 203 mg/dL (70-110)
--- NOTE | 2022-03-17 18:23 | P.PN ---
Subjective Progress Note Date: 03/17/22 (delayed charting seen at 0945) Patient is an 81-year-old male with A. fib on Eliquis, hypertension, hyperlipidemia, type II DM, CAD, and hypothyroidism who was transferred to the emergency room from [facility] for complaints of abdominal pain. He underwent a CT abdomen and pelvis at the transferring facility which revealed mild gallbladder wall thickening with cholelithiasis along with a well- circumscribed lobulated peripherally enhancing collection in the anterior aspect of the abdomen extending inferiorly into the pelvis 3.1 x 7.9 cm, possibly due to gallbladder perforation or infectious/inflammatory colitis. Laboratory evaluation was remarkable for platelet count of 139, BUN 36, creatinine 1.4, unremarkable LFTs, lactic acid 2.0 from the transferring facility which improved to 1.2 upon repeat. He was seen by surgery. He underwent gallbladder ultras ound showed cholelithiasis concern for acute cholecystitis as well as a complex right abdomen fluid collection. Surgery recommended drain placement IR which was completed on 03/17/22. Patient seen and examined at bedside. No chest pain, no shortness of breath. Still wtih some abdominal pain no nausea and no diarrhea. General: nontoxic, no distress, appears at stated age Derm: warm, dry Head: atraumatic, normocephalic, symmetric Eyes: EOMI, no lid lag, anicteric sclera Mouth: no lip lesion, mucus membranes moist Cardiovascular: S1S2 reg, no murmur, positive posterior tibial pulse bilateral, Lungs: CTA bilateral, no rhonchi, no rales , no accessory muscle use Abdominal: soft, +tender to palpation LUQ, no guarding, no appreciable organomegaly Ext: no gross muscle atrophy, no edema, no contractures Neuro: CN II-XI grossly intact, no focal neuro deficits Psych: Alert, oriented, blunted affect Assessment/Plan: Right upper quadrant fluid collection No clinial signs of cholecystitis but possible ruptured pinky - plan is for IR drainage today - flagyl/ levaquin - surgery recs AGATHA - hold Diuretics, hold entresto - IVF - repeat in AM if increasing consult nephro Aneima, possible acute blood loss - follow CBC - check iron studies Hematuria - conitnue to monitor - continue with milligan - flomax DM 2 - SSI, Levemir HTN, now with hypotension CAD with hx of ND P. A fib - Lipitor - metoprolol , hold entresto and lasix - tele Active Medications Generic Name Dose Route Start Last Admin Trade Name Freq PRN Reason Stop Dose Admin Acetaminophen 650 mg 03/16/22 12:23 Acetaminophen Tab 325 Mg Tab PO Q4H PRN Fever and/ or Mild Pain Atorvastatin Calcium 80 mg 03/16/22 21:00 03/16/22 20:47 Atorvastatin 80 Mg Tab PO 80 mg HS [facility] Administration Docusate Sodium 100 mg 03/16/22 12:23 Docusate 100 Mg Cap PO DAILY PRN Constipation Famotidine 20 mg 03/17/22 09:00 03/17/22 08:30 Famotidine 20 Mg Tab PO 20 mg DAILY [facility] Administration Metronidazole 500 mg/ IV 100 mls @ 100 mls/hr 03/16/22 06:00 03/17/22 17:24 Solution IVPB 100 mls/hr Q6HR [facility] Administration Protocol Levofloxacin/Dextrose 250 mg/ 50 mls @ 50 mls/hr 03/17/22 21:00 IV Solution IVPB [facility] Lactated Ringer's 1,000 mls @ 75 mls/hr 03/17/22 18:30 Lactated Ringers IV .[id number] [facility] Insulin Aspart 0 unit 03/16/22 07:30 03/17/22 17:24 Insulin Aspart (Novolog) 100 Unit/Ml Vial SQ 4 unit ACHS [facility] Administration Protocol Insulin Detemir 14 unit 03/16/22 21:00 03/16/22 20:35 Insulin Detemir (Levemir) 100 Unit/Ml Syr SQ Not Given [facility] Levothyroxine Sodium 150 mcg 03/17/22 06:30 03/17/22 03:38 Levothyroxine 75 Mcg Tab PO Not Given DAILY@0630 [facility] Metoprolol Tartrate 12.5 mg 03/16/22 21:00 03/17/22 08:30 Metoprolol Tartrate 12.5 Mg Tab PO 12.5 mg BID [facility] Administration Morphine Sulfate 4 mg 03/15/22 23:53 03/16/22 12:28 Morphine Sulfate 4 Mg/Ml Syringe IV 4 mg Q4HR PRN Administration Severe Pain Naloxone HCl 0.2 mg 03/15/22 23:53 Naloxone 0.4 Mg/Ml 1 Ml Vial IV Q2M PRN Opioid Reversal Ondansetron HCl 4 mg 03/15/22 23:53 Ondansetron 4 Mg/2 Ml Vial IVP Q8HR PRN Nausea And Vomiting Tamsulosin HCl 0.4 mg 03/17/22 09:00 03/17/22 08:31 Tamsulosin 0.4 Mg Cap.Er.24h PO 0.4 mg DAILY [facility] Administration Objective - Vital Signs Vital signs: Vital Signs Temp 98.5 F 03/17/22 11:54 Pulse 83 03/17/22 15:43 Resp 15 03/17/22 15:43 BP 104/54 03/17/22 15:43 Pulse Ox 94 L 03/17/22 15:43 FiO2 Intake & Output 03/16/22 03/17/22 03/17/22 18:59 06:59 18:59 Intake Total 0 Output Total 525 200 Balance -525 -200 Weight 100.698 kg Intake: Oral 0 Output: Urine 525 200 Other: Voiding Method Indwelling Catheter Indwelling Catheter Indwelling Catheter - Labs CBC & Chem 7: 03/17/22 07:01 03/17/22 07:01 Labs: Abnormal Lab Results - Last 24 Hours (Table) 03/16/22 03/16/22 03/16/22 Range/Units 19:54 21:24 21:24 RBC 3.90 L (4.30-5.90) m/uL Hgb 11.4 L (13.0-17.5) gm/dL Hct 36.0 L (39.0-53.0) % MCHC (32.0-37.0) g/dL RDW (11.5-14.5) % Neutrophils # (1.80-7.70) X 10*3/uL Lymphocytes # 0.2 L (1.0-4.8) k/uL Eosinophils # (0.04-0.35) X 10*3/uL Chloride 108 H (98-107) mmol/L Anion Gap (10.00-18.00) mmol/L BUN 46 H (9-20) mg/dL Creatinine 1.47 H (0.66-1.25) mg/dL Est GFR (CKD-EPI)AfAm (60.0-200.0) Est GFR (CKD-EPI)NonAf (60.0-200.0) BUN/Creatinine Ratio (12.00-20.00) Ratio Glucose 164 H (74-99) mg/dL POC Glucose (mg/dL) 154 H (70-110) mg/dL Calcium (8.7-10.3) mg/dL Total Protein 5.1 L (6.3-8.2) g/dL Albumin 2.3 L (3.5-5.0) g/dL Albumin/Globulin Ratio (1.60-3.17) g/dL 03/17/22 03/17/22 03/17/22 Range/Units 06:14 07:01 07:01 RBC 3.84 L (4.30-5.90) m/uL Hgb 10.9 L (13.0-17.5) gm/dL Hct 35.2 L (39.0-53.0) % MCHC 31.0 L (32.0-37.0) g/dL RDW 15.8 H (11.5-14.5) % Neutrophils # 7.99 H (1.80-7.70) X 10*3/uL Lymphocytes # 0.28 L (1.0-4.8) k/uL Eosinophils # 0 L (0.04-0.35) X 10*3/uL Chloride (98-107) mmol/L Anion Gap 7.40 L (10.00-18.00) mmol/L BUN 48.2 H (9-20) mg/dL Creatinine 1.7 H (0.66-1.25) mg/dL Est GFR (CKD-EPI)AfAm 42.3 L (60.0-200.0) Est GFR (CKD-EPI)NonAf 36.5 L (60.0-200.0) BUN/Creatinine Ratio 28.35 H (12.00-20.00) Ratio Glucose 158 H (74-99) mg/dL POC Glucose (mg/dL) 159 H (70-110) mg/dL Calcium 8.6 L (8.7-10.3) mg/dL Total Protein 4.8 L (6.3-8.2) g/dL Albumin 2.4 L (3.5-5.0) g/dL Albumin/Globulin Ratio 1.00 L (1.60-3.17) g/dL 03/17/22 03/17/22 Range/Units 11:37 16:23 RBC (4.30-5.90) m/uL Hgb (13.0-17.5) gm/dL Hct (39.0-53.0) % MCHC (32.0-37.0) g/dL RDW (11.5-14.5) % Neutrophils # (1.80-7.70) X 10*3/uL Lymphocytes # (1.0-4.8) k/uL Eosinophils # (0.04-0.35) X 10*3/uL Chloride (98-107) mmol/L Anion Gap (10.00-18.00) mmol/L BUN (9-20) mg/dL Creatinine (0.66-1.25) mg/dL Est GFR (CKD-EPI)AfAm (60.0-200.0) Est GFR (CKD-EPI)NonAf (60.0-200.0) BUN/Creatinine Ratio (12.00-20.00) Ratio Glucose (74-99) mg/dL POC Glucose (mg/dL) 165 H 203 H (70-110) mg/dL Calcium (8.7-10.3) mg/dL Total Protein (6.3-8.2) g/dL Albumin (3.5-5.0) g/dL Albumin/Globulin Ratio (1.60-3.17) g/dL Microbiology - Last 24 Hours (Table) 03/16/22 16:15 Urine Culture - Final Urine,Catheterized 03/16/22 15:14 Blood Culture - Preliminary Blood No Growth after 24 hours 03/16/22 13:14 Blood Culture - Preliminary Blood No Growth after 24 hours
[2022-03-17] MEDS: MORPHINE SULFATE 4 MG/ML SYRINGE IV PRN (18:27)
--- NOTE | 2022-03-17 19:34 | US ---
EXAMINATION TYPE: US renals and bladder DATE OF EXAM: 03/17/2022 COMPARISON: US 03/16/22 CLINICAL HISTORY: AGATHA. AGATHA. Patient has milligan catheter Limited due to pt body habitus EXAM MEASUREMENTS: Right Kidney: 10.8 x 4.3 x 6.2 cm Left Kidney: 10.2 x 4.4 x 5.4 cm Right Kidney: No obvious hydronephrosis or masses seen Left Kidney: No obvious hydronephrosis or masses seen Bladder: ? if bladder visualized. Pocket of fluid seen ant to bladder. Milligan not visualized. Bilateral Jets seen: No IMPRESSION: No evidence of renal mass or obstruction. There is some fluid in the abdomen anterior to the urinary bladder. Urinary bladder not well seen.
[2022-03-17 20:19] LABS: Glucose,Whole Blood 289 mg/dL (70-110)
[2022-03-17] MEDS: LACTATED RINGERS 1,000 ML IV SCH (20:24)
[2022-03-17] MEDS: INSULIN DETEMIR (LEVEMIR) 100 UNIT/ML SYR SQ SCH (20:26)
[2022-03-17] MEDS: ATORVASTATIN 80 MG TAB PO SCH (20:27)
[2022-03-17] MEDS: LEVOFLOXACIN 250MG-D5W PMX 250 MG in DEXTROSE/WATER 1 50ML.BAG IVPB SCH (20:32)
[2022-03-18 01:23] LABS: Appearance,BF Turbid
[2022-03-18 06:26] LABS: Glucose,Whole Blood 180 mg/dL (70-110)
[2022-03-18] MEDS: metroNIDAZOLE-NS PMX 500 MG in SALINE 1 100ML.BAG IVPB SCH ×3 (06:37→17:16)
[2022-03-18] MEDS: LEVOTHYROXINE 75 MCG TAB PO SCH (06:38)
[2022-03-18] MEDS: INSULIN ASPART (NovoLOG) 100 UNIT/ML VIAL SQ SCH ×4 (06:38→22:00)
[2022-03-18 08:19] LABS: Basophils % (A) 0 %; Eosinophils % (A) 0 %; HCT 37.3 % (39.0-53.0); HGB 11.7 gm/dL (13.0-17.5); Lymphocytes # (A) 0.3 k/uL (1.0-4.8); Lymphocytes % (A) 3 %; MCHC 31.3 g/dL (31.0-37.0); MCV 92.4 fL (80.0-100.0); Mean Platelet Volume 8.3; Monocytes # (A) 0.3 k/uL (0-1.0); Monocytes % (A) 3 %; Neutrophils # (A) 9.8 k/uL (1.3-7.7); Neutrophils % (A) 93 %; Platelet Count 190 k/uL (150-450); RBC 4.04 m/uL (4.30-5.90); WBC 10.6 k/uL (3.8-10.6)
[2022-03-18 08:30] LABS: Albumin 2.4 g/dL (3.5-5.0); Calcium 8.3 mg/dL (8.4-10.2); Potassium 4.3 mmol/L (3.5-5.1); Total Bilirubin 0.7 mg/dL (0.2-1.3); Total Protein 5.3 g/dL (6.3-8.2)
--- NOTE | 2022-03-18 09:07 | P.PN ---
Subjective Progress Note Date: 03/18/22 Principal diagnosis: Abdominal pain, intra-abdominal fluid collection The patient is seen on rounds. He is feeling better than admission. Tolerating clear liquids without nausea or vomiting. Had a percutaneous drainage done in interventional radiology yesterday Objective - Vital Signs Vital signs: Vital Signs Temp 98.2 F 03/18/22 03:57 Pulse 70 03/18/22 03:57 Resp 14 03/18/22 03:57 BP 94/51 03/18/22 03:57 Pulse Ox 92 L 03/18/22 03:57 FiO2 Intake & Output 03/17/22 03/18/22 03/18/22 18:59 06:59 18:59 Intake Total 420 750 Output Total 375 390 Balance 45 360 Weight 100.698 kg Intake: Intake, IV Titration 750 Amount Lactated Ringers 1,000 ml 600 @ 75 mls/hr IV .[id number] [facility] Rx#:[id number] Levofloxacin 250Mg-D5w 50 Pmx 250 mg In Dextrose/ Water 1 50ml.bag @ 50 mls /hr IVPB HS [facility] Rx#: [id number] metroNIDAZOLE-NS PMX 500 100 mg In Saline 1 100ml.bag @ 100 mls/hr IVPB Q6HR [facility] Rx#:[id number] Oral 420 Output: Drainage 175 140 Right Upper Abdomen 175 140 Urine 200 250 Stool 0 Emesis 0 Oral Regurgitation 0 Other: Voiding Method Indwelling Catheter Indwelling Catheter # Voids 0 # Bowel Movements 0 - Constitutional General appearance: Present: cooperative, no acute distress - Gastrointestinal Gastrointestinal Comment(s): Drain has some turbid material in it General gastrointestinal: Present: decreased bowel sounds, soft, tenderness (Minimal tenderness in the mid abdomen without guarding or rebound.) - Labs CBC & Chem 7: 03/18/22 07:36 03/18/22 07:36 Labs: Abnormal Lab Results - Last 24 Hours (Table) 03/17/22 03/17/22 03/17/22 Range/Units 07:01 07:01 11:37 RBC 3.84 L (4.40-5.60) X 10*6/uL Hgb 10.9 L (13.0-17.0) g/dL Hct 35.2 L (39.6-50.0) % MCHC 31.0 L (32.0-37.0) g/dL RDW 15.8 H (11.5-14.5) % Neutrophils # 7.99 H (1.80-7.70) X 10*3/uL Lymphocytes # 0.28 L (0.90-5.00) X 10*3/uL Eosinophils # 0 L (0.04-0.35) X 10*3/uL Sodium (137-145) mmol/L Chloride (98-107) mmol/L Carbon Dioxide (22-30) mmol/L Anion Gap 7.40 L (10.00-18.00) mmol/L BUN 48.2 H (9.0-27.0) mg/dL Creatinine 1.7 H (0.6-1.5) mg/dL Est GFR (CKD-EPI)AfAm 42.3 L (60.0-200.0) Est GFR (CKD-EPI)NonAf 36.5 L (60.0-200.0) BUN/Creatinine Ratio 28.35 H (12.00-20.00) Ratio Glucose 158 H (70-110) mg/dL POC Glucose (mg/dL) 165 H (70-110) mg/dL Calcium 8.6 L (8.7-10.3) mg/dL Total Protein 4.8 L (6.2-8.2) g/dL Albumin 2.4 L (3.8-4.9) g/dL Albumin/Globulin Ratio 1.00 L (1.60-3.17) g/dL 03/17/22 03/17/22 03/18/22 Range/Units 16:23 20:18 06:24 RBC (4.40-5.60) X 10*6/uL Hgb (13.0-17.0) g/dL Hct (39.6-50.0) % MCHC (32.0-37.0) g/dL RDW (11.5-14.5) % Neutrophils # (1.80-7.70) X 10*3/uL Lymphocytes # (0.90-5.00) X 10*3/uL Eosinophils # (0.04-0.35) X 10*3/uL Sodium (137-145) mmol/L Chloride (98-107) mmol/L Carbon Dioxide (22-30) mmol/L Anion Gap (10.00-18.00) mmol/L BUN (9.0-27.0) mg/dL Creatinine (0.6-1.5) mg/dL Est GFR (CKD-EPI)AfAm (60.0-200.0) Est GFR (CKD-EPI)NonAf (60.0-200.0) BUN/Creatinine Ratio (12.00-20.00) Ratio Glucose (70-110) mg/dL POC Glucose (mg/dL) 203 H 289 H 180 H (70-110) mg/dL Calcium (8.7-10.3) mg/dL Total Protein (6.2-8.2) g/dL Albumin (3.8-4.9) g/dL Albumin/Globulin Ratio (1.60-3.17) g/dL 03/18/22 03/18/22 Range/Units 07:36 07:36 RBC 4.04 L (4.40-5.60) X 10*6/uL Hgb 11.7 L (13.0-17.0) g/dL Hct 37.3 L (39.6-50.0) % MCHC (32.0-37.0) g/dL RDW (11.5-14.5) % Neutrophils # 9.8 H (1.80-7.70) X 10*3/uL Lymphocytes # 0.3 L (0.90-5.00) X 10*3/uL Eosinophils # (0.04-0.35) X 10*3/uL Sodium 135 L (137-145) mmol/L Chloride 108 H (98-107) mmol/L Carbon Dioxide 20 L (22-30) mmol/L Anion Gap (10.00-18.00) mmol/L BUN 70 H (9.0-27.0) mg/dL Creatinine 1.73 H (0.6-1.5) mg/dL Est GFR (CKD-EPI)AfAm (60.0-200.0) Est GFR (CKD-EPI)NonAf (60.0-200.0) BUN/Creatinine Ratio (12.00-20.00) Ratio Glucose 160 H (70-110) mg/dL POC Glucose (mg/dL) (70-110) mg/dL Calcium 8.3 L (8.7-10.3) mg/dL Total Protein 5.3 L (6.2-8.2) g/dL Albumin 2.4 L (3.8-4.9) g/dL Albumin/Globulin Ratio (1.60-3.17) g/dL Microbiology - Last 24 Hours (Table) 03/17/22 13:47 Gram Stain - Preliminary Aspirate Body Fluid Culture - Preliminary 03/17/22 13:50 Anaerobic Culture - Preliminary Aspirate 03/16/22 16:15 Urine Culture - Final Urine,Catheterized 03/16/22 15:14 Blood Culture - Preliminary Blood No Growth after 24 hours 03/16/22 13:14 Blood Culture - Preliminary Blood No Growth after 24 hours Assessment and Plan (1) Intra-abdominal fluid collection Current Visit: Yes Status: Acute Code(s): R18.8 - OTHER ASCITES SNOMED Code(s): 827220659 (2) Abdominal pain Current Visit: Yes Status: Acute Code(s): R10.9 - UNSPECIFIED ABDOMINAL PAIN SNOMED Code(s): 61189594 Plan: The percutaneous drainage showed RBCs and WBCs. No organisms. No growth to date. We will continue him on clear liquid diet today. Continue IV antibiotics. Await culture and sensitivity to see if this is infectious process.
[2022-03-18] MEDS: LACTATED RINGERS 1,000 ML IV SCH ×2 (10:06→21:59)
[2022-03-18] MEDS: METOPROLOL TARTRATE 12.5 MG TAB PO SCH ×2 (10:07→22:00)
[2022-03-18] MEDS: FAMOTIDINE 20 MG TAB PO SCH (10:07)
[2022-03-18] MEDS: TAMSULOSIN 0.4 MG CAP.ER.24H PO SCH (10:07)
[2022-03-18 11:49] LABS: Glucose,Whole Blood 156 mg/dL (70-110)
--- NOTE | 2022-03-18 16:14 | P.PN ---
Subjective Progress Note Date: 03/18/22 (delayed charting seen at 1115) Patient is an 81-year-old male with A. fib on Eliquis, hypertension, hyperlipidemia, type II DM, CAD, and hypothyroidism who was transferred to the emergency room from [facility] for complaints of abdominal pain. He underwent a CT abdomen and pelvis at the transferring facility which revealed mild gallbladder wall thickening with cholelithiasis along with a well- circumscribed lobulated peripherally enhancing collection in the anterior aspect of the abdomen extending inferiorly into the pelvis 3.1 x 7.9 cm, possibly due to gallbladder perforation or infectious/inflammatory colitis. Laboratory evaluation was remarkable for platelet count of 139, BUN 36, creatinine 1.4, unremarkable LFTs, lactic acid 2.0 from the transferring facility which improved to 1.2 upon repeat. He was seen by surgery. He underwent gallbladder ultras ound showed cholelithiasis concern for acute cholecystitis as well as a complex right abdomen fluid collection. Surgery recommended drain placement IR which was completed on 03/17/22. Patient seen and examined at bedside. He is feeling better today after drain placement. His abdominal pain is better. He is no longer coughing. He denies any nausea or vomiting. He is tolerating clear liquid diet. present at bedside and all questions answered General: nontoxic, no distress, appears at stated age Derm: warm, dry Head: atraumatic, normocephalic, symmetric Eyes: EOMI, no lid lag, anicteric sclera Mouth: no lip lesion, mucus membranes moist Cardiovascular: S1S2 reg, no murmur, positive posterior tibial pulse bilateral, Lungs: CTA bilateral, no rhonchi, no rales , no accessory muscle use Abdominal: soft, +tender to palpation periumbilical, no guarding, no appreciable organomegaly Ext: no gross muscle atrophy, no edema, no contractures Neuro: CN II-XI grossly intact, no focal neuro deficits Psych: Alert, oriented, blunted affect Assessment/Plan: Right upper quadrant fluid collection No clinial signs of cholecystitis but possible ruptured pinky bs bilioma vs other - s/p IR drain placement, await cultures - flagyl/ levaquin - surgery recs AGATHA - hold Diuretics, hold entresto - IVF - repeat in AM if increasing consult nephro - renal US without hydro Aneima, possible acute blood loss - follow CBC - check iron studies Hematuria, improving - conitnue to monitor - continue with milligan - flomax DM 2 - SSI, Levemir HTN, now with hypotension CAD with hx of CT P. A fib - Lipitor - metoprolol , hold entresto and lasix - tele Active Medications Generic Name Dose Route Start Last Admin Trade Name Freq PRN Reason Stop Dose Admin Acetaminophen 650 mg 03/16/22 12:23 Acetaminophen Tab 325 Mg Tab PO Q4H PRN Fever and/ or Mild Pain Atorvastatin Calcium 80 mg 03/16/22 21:00 03/17/22 20:27 Atorvastatin 80 Mg Tab PO 80 mg HS [facility] Administration Docusate Sodium 100 mg 03/16/22 12:23 Docusate 100 Mg Cap PO DAILY PRN Constipation Famotidine 20 mg 03/17/22 09:00 03/18/22 10:07 Famotidine 20 Mg Tab PO 20 mg DAILY [facility] Administration Metronidazole 500 mg/ IV 100 mls @ 100 mls/hr 03/16/22 06:00 03/18/22 12:42 Solution IVPB 100 mls/hr Q6HR [facility] Administration Protocol Levofloxacin/Dextrose 250 mg/ 50 mls @ 50 mls/hr 03/17/22 21:00 03/17/22 20:32 IV Solution IVPB 50 mls/hr HS [facility] Administration Lactated Ringer's 1,000 mls @ 120 mls/hr 03/17/22 18:30 03/18/22 10:06 Lactated Ringers IV 120 mls/hr .Q8H20M [facility] Administration Insulin Aspart 0 unit 03/16/22 07:30 03/18/22 12:41 Insulin Aspart (Novolog) 100 Unit/Ml Vial SQ 2 unit ACHS [facility] Administration Protocol Insulin Detemir 14 unit 03/16/22 21:00 03/17/22 20:26 Insulin Detemir (Levemir) 100 Unit/Ml Syr SQ 14 unit HS [facility] Administration Levothyroxine Sodium 150 mcg 03/17/22 06:30 03/18/22 06:38 Levothyroxine 75 Mcg Tab PO 150 mcg DAILY@0630 [facility] Administration Metoprolol Tartrate 12.5 mg 03/16/22 21:00 03/18/22 10:07 Metoprolol Tartrate 12.5 Mg Tab PO 12.5 mg BID [facility] Administration Morphine Sulfate 4 mg 03/15/22 23:53 03/17/22 18:27 Morphine Sulfate 4 Mg/Ml Syringe IV 4 mg Q4HR PRN Administration Severe Pain Naloxone HCl 0.2 mg 03/15/22 23:53 Naloxone 0.4 Mg/Ml 1 Ml Vial IV Q2M PRN Opioid Reversal Ondansetron HCl 4 mg 03/15/22 23:53 Ondansetron 4 Mg/2 Ml Vial IVP Q8HR PRN Nausea And Vomiting Tamsulosin HCl 0.4 mg 03/17/22 09:00 03/18/22 10:07 Tamsulosin 0.4 Mg Cap.Er.24h PO 0.4 mg DAILY [facility] Administration Objective - Vital Signs Vital signs: Vital Signs Temp 96.7 F L 03/18/22 08:00 Pulse 74 03/18/22 12:00 Resp 16 03/18/22 14:00 BP 123/64 03/18/22 12:00 Pulse Ox 94 L 03/18/22 12:00 FiO2 Intake & Output 03/17/22 03/18/22 03/18/22 18:59 06:59 18:59 Intake Total 420 750 720 Output Total 375 390 325 Balance 45 360 395 Weight 100.698 kg Intake: Intake, IV Titration 750 Amount Lactated Ringers 1,000 ml 600 @ 120 mls/hr IV .Q8H20M [facility] Rx#:[id number] Levofloxacin 250Mg-D5w 50 Pmx 250 mg In Dextrose/ Water 1 50ml.bag @ 50 mls /hr IVPB HS [facility] Rx#: [id number] metroNIDAZOLE-NS PMX 500 100 mg In Saline 1 100ml.bag @ 100 mls/hr IVPB Q6HR [facility] Rx#:[id number] Oral 420 720 Output: Drainage 175 140 Right Upper Abdomen 175 140 Urine 200 250 325 Stool 0 0 Emesis 0 Oral Regurgitation 0 Other: Voiding Method Indwelling Catheter Indwelling Catheter Indwelling Catheter # Voids 0 # Bowel Movements 0 - Labs CBC & Chem 7: 03/18/22 07:36 03/18/22 07:36 Labs: Abnormal Lab Results - Last 24 Hours (Table) 03/17/22 03/17/22 03/18/22 Range/Units 16:23 20:18 06:24 RBC (4.30-5.90) m/uL Hgb (13.0-17.5) gm/dL Hct (39.0-53.0) % Neutrophils # (1.3-7.7) k/uL Lymphocytes # (1.0-4.8) k/uL Sodium (137-145) mmol/L Chloride (98-107) mmol/L Carbon Dioxide (22-30) mmol/L BUN (9-20) mg/dL Creatinine (0.66-1.25) mg/dL Glucose (74-99) mg/dL POC Glucose (mg/dL) 203 H 289 H 180 H (70-110) mg/dL Calcium (8.4-10.2) mg/dL Total Protein (6.3-8.2) g/dL Albumin (3.5-5.0) g/dL 03/18/22 03/18/22 03/18/22 Range/Units 07:36 07:36 11:46 RBC 4.04 L (4.30-5.90) m/uL Hgb 11.7 L (13.0-17.5) gm/dL Hct 37.3 L (39.0-53.0) % Neutrophils # 9.8 H (1.3-7.7) k/uL Lymphocytes # 0.3 L (1.0-4.8) k/uL Sodium 135 L (137-145) mmol/L Chloride 108 H (98-107) mmol/L Carbon Dioxide 20 L (22-30) mmol/L BUN 70 H (9-20) mg/dL Creatinine 1.73 H (0.66-1.25) mg/dL Glucose 160 H (74-99) mg/dL POC Glucose (mg/dL) 156 H (70-110) mg/dL Calcium 8.3 L (8.4-10.2) mg/dL Total Protein 5.3 L (6.3-8.2) g/dL Albumin 2.4 L (3.5-5.0) g/dL Microbiology - Last 24 Hours (Table) 03/16/22 13:14 Blood Culture - Preliminary Blood No Growth after 48 hours 03/17/22 13:47 Gram Stain - Preliminary Aspirate Body Fluid Culture - Preliminary 03/17/22 13:50 Anaerobic Culture - Preliminary Aspirate 03/16/22 16:15 Urine Culture - Final Urine,Catheterized 03/16/22 15:14 Blood Culture - Preliminary Blood No Growth after 24 hours
[2022-03-18 16:28] LABS: Glucose,Whole Blood 190 mg/dL (70-110)
[2022-03-18 20:29] LABS: Glucose,Whole Blood 202 mg/dL (70-110)
[2022-03-18] MEDS: LEVOFLOXACIN 250MG-D5W PMX 250 MG in DEXTROSE/WATER 1 50ML.BAG IVPB SCH (21:59)
[2022-03-18] MEDS: INSULIN DETEMIR (LEVEMIR) 100 UNIT/ML SYR SQ SCH (21:59)
[2022-03-18] MEDS: ATORVASTATIN 80 MG TAB PO SCH (22:00)
[2022-03-19] MEDS: metroNIDAZOLE-NS PMX 500 MG in SALINE 1 100ML.BAG IVPB SCH ×4 (00:36→17:14)
[2022-03-19] MEDS: LACTATED RINGERS 1,000 ML IV SCH ×3 (02:33→18:48)
[2022-03-19] MEDS: LEVOTHYROXINE 75 MCG TAB PO SCH (05:31)
[2022-03-19 06:20] LABS: Glucose,Whole Blood 151 mg/dL (70-110)
[2022-03-19] MEDS: INSULIN ASPART (NovoLOG) 100 UNIT/ML VIAL SQ SCH ×4 (06:47→22:09)
--- NOTE | 2022-03-19 08:51 | P.PN ---
Subjective Progress Note Date: 03/19/22 No new complaints today. Drain in place. Gen: awake, alert HEENT: normocephalic, atraumatic, good hearing acuity, moist mucous membranes Resp: good air exchange, breathing comfortably with no accessory muscle use CVS: good distal perfusion x 4, GI: soft, NTTP, ND : no SPT, no CVAT, milligan catheter is present MSK: no pitting edema, no clubbing Neuro: non-focal, moving all extremities Psych: cooperative, euthymic mood Assessment/plan: Right upper quadrant fluid collection No clinial signs of cholecystitis but possible ruptured pinky bs bilioma vs other - s/p IR drain placement, await cultures - flagyl/ levaquin - surgery recs AGATHA - hold Diuretics, hold entresto - IVF - repeat in AM if increasing consult nephro - renal US without hydro Aneima, possible acute blood loss - follow CBC - check iron studies Hematuria, improving - conitnue to monitor - continue with milligan - flomax DM 2 - SSI, Levemir HTN, now with hypotension CAD with hx of [place] P. A fib - Lipitor - metoprolol , hold entresto and lasix - tele - hold eliquis Objective - Vital Signs Vital signs: Vital Signs Temp 98.2 F 03/19/22 04:40 Pulse 86 03/19/22 04:40 Resp 15 03/19/22 04:40 BP 99/60 03/19/22 04:40 Pulse Ox 94 L 03/19/22 04:40 FiO2 Intake & Output 03/18/22 03/19/22 03/19/22 18:59 06:59 18:59 Intake Total 960 Output Total 325 690 Balance 635 -690 Intake: Oral 960 Output: Drainage 515 Right Upper Abdomen 515 Urine 325 175 Stool 0 Other: Voiding Method Indwelling Catheter Indwelling Catheter # Bowel Movements 1 - Labs CBC & Chem 7: 03/18/22 07:36 03/18/22 07:36 Labs: Abnormal Lab Results - Last 24 Hours (Table) 03/18/22 03/18/22 03/18/22 Range/Units 11:46 16:26 20:26 POC Glucose (mg/dL) 156 H 190 H 202 H (70-110) mg/dL 03/19/22 Range/Units 06:18 POC Glucose (mg/dL) 151 H (70-110) mg/dL Microbiology - Last 24 Hours (Table) 03/17/22 13:47 Gram Stain - Preliminary Aspirate Body Fluid Culture - Preliminary 03/16/22 15:14 Blood Culture - Preliminary Blood No Growth after 48 hours 03/16/22 13:14 Blood Culture - Preliminary Blood No Growth after 48 hours
[2022-03-19 09:01] LABS: Albumin 2.1 g/dL (3.5-5.0); Calcium 8.2 mg/dL (8.4-10.2); Potassium 3.9 mmol/L (3.5-5.1); Total Bilirubin 0.6 mg/dL (0.2-1.3); Total Protein 4.9 g/dL (6.3-8.2)
[2022-03-19 09:03] LABS: Basophils % (A) 0 %; Eosinophils % (A) 0 %; HCT 35.3 % (39.0-53.0); HGB 11.4 gm/dL (13.0-17.5); Lymphocytes # (A) 0.3 k/uL (1.0-4.8); Lymphocytes % (A) 3 %; MCH 29.9 pg (25.0-35.0); MCHC 32.4 g/dL (31.0-37.0); MCV 92.6 fL (80.0-100.0); Mean Platelet Volume 8.2; Monocytes # (A) 0.3 k/uL (0-1.0); Monocytes % (A) 3 %; Neutrophils # (A) 9.7 k/uL (1.3-7.7); Neutrophils % (A) 92 %; Platelet Count 180 k/uL (150-450); RBC 3.81 m/uL (4.30-5.90); RDW 15.4 % (11.5-15.5); WBC 10.5 k/uL (3.8-10.6)
[2022-03-19] MEDS: METOPROLOL TARTRATE 12.5 MG TAB PO SCH ×2 (09:28→22:11)
[2022-03-19] MEDS: FAMOTIDINE 20 MG TAB PO SCH (09:28)
[2022-03-19] MEDS: TAMSULOSIN 0.4 MG CAP.ER.24H PO SCH (09:28)
[2022-03-19 11:54] LABS: Glucose,Whole Blood 128 mg/dL (70-110)
--- NOTE | 2022-03-19 13:24 | P.PN ---
Subjective Progress Note Date: 03/19/22 Principal diagnosis: Abdominal pain, intra-abdominal fluid collection Patient is seen on rounds. Denies any nausea or vomiting. Tolerating clear liquids. He has not been eating much but states he does not typically have much of an appetite. His has to force him to eat. Has some abdominal discomfort. Objective - Vital Signs Vital signs: Vital Signs Temp 98.2 F 03/19/22 08:00 Pulse 83 03/19/22 08:00 Resp 18 03/19/22 08:00 BP 105/69 03/19/22 08:00 Pulse Ox 93 L 03/19/22 08:00 FiO2 Intake & Output 03/18/22 03/19/22 03/19/22 18:59 06:59 18:59 Intake Total 960 Output Total 325 690 0 Balance 635 -690 0 Intake: Oral 960 Output: Drainage 515 Right Upper Abdomen 515 Urine 325 175 Stool 0 0 Other: Voiding Method Indwelling Catheter Indwelling Catheter Indwelling Catheter # Bowel Movements 1 - Constitutional General appearance: Present: cooperative, no acute distress - Gastrointestinal General gastrointestinal: Present: decreased bowel sounds, soft, tenderness (Mild nonspecific tenderness without guarding or rebound) Localized gastrointestinal: surgical scar: midline (Drain is turbid with minimal output) - Labs CBC & Chem 7: 03/19/22 08:25 03/19/22 08:25 Labs: Abnormal Lab Results - Last 24 Hours (Table) 03/18/22 03/18/22 03/19/22 Range/Units 16:26 20:26 06:18 RBC (4.30-5.90) m/uL Hgb (13.0-17.5) gm/dL Hct (39.0-53.0) % Neutrophils # (1.3-7.7) k/uL Lymphocytes # (1.0-4.8) k/uL Sodium (137-145) mmol/L BUN (9-20) mg/dL Creatinine (0.66-1.25) mg/dL Glucose (74-99) mg/dL POC Glucose (mg/dL) 190 H 202 H 151 H (70-110) mg/dL Calcium (8.4-10.2) mg/dL Total Protein (6.3-8.2) g/dL Albumin (3.5-5.0) g/dL 0803/19/22 03/19/22 Range/Units 08:25 08:25 11:44 RBC 3.81 L (4.30-5.90) m/uL Hgb 11.4 L (13.0-17.5) gm/dL Hct 35.3 L (39.0-53.0) % Neutrophils # 9.7 H (1.3-7.7) k/uL Lymphocytes # 0.3 L (1.0-4.8) k/uL Sodium 135 L (137-145) mmol/L BUN 77 H (9-20) mg/dL Creatinine 1.72 H (0.66-1.25) mg/dL Glucose 139 H (74-99) mg/dL POC Glucose (mg/dL) 128 H (70-110) mg/dL Calcium 8.2 L (8.4-10.2) mg/dL Total Protein 4.9 L (6.3-8.2) g/dL Albumin 2.1 L (3.5-5.0) g/dL Microbiology - Last 24 Hours (Table) 03/17/22 13:47 Gram Stain - Preliminary Aspirate Body Fluid Culture - Preliminary 03/16/22 15:14 Blood Culture - Preliminary Blood No Growth after 48 hours 03/16/22 13:14 Blood Culture - Preliminary Blood No Growth after 48 hours Assessment and Plan (1) Intra-abdominal fluid collection Current Visit: Yes Status: Acute Code(s): R18.8 - OTHER ASCITES SNOMED Code(s): 978201249 (2) Abdominal pain Current Visit: Yes Status: Acute Code(s): R10.9 - UNSPECIFIED ABDOMINAL PAIN SNOMED Code(s): 08011408 Plan: Cultures are negative to date. We will recheck the cultures later today. His white blood cell count and liver function tests are all within normal range. Continue current care pending cultures. Currently is nonsurgical. Diet as tolerated.
[2022-03-19 17:08] LABS: Glucose,Whole Blood 134 mg/dL (70-110)
[2022-03-19 20:25] LABS: Glucose,Whole Blood 159 mg/dL (70-110)
[2022-03-19] MEDS: ATORVASTATIN 80 MG TAB PO SCH (22:09)
[2022-03-19] MEDS: LEVOFLOXACIN 250MG-D5W PMX 250 MG in DEXTROSE/WATER 1 50ML.BAG IVPB SCH (22:10)
[2022-03-19] MEDS: INSULIN DETEMIR (LEVEMIR) 100 UNIT/ML SYR SQ SCH (22:10)
[2022-03-20] MEDS: metroNIDAZOLE-NS PMX 500 MG in SALINE 1 100ML.BAG IVPB SCH ×5 (00:31→23:54)
[2022-03-20] MEDS: LACTATED RINGERS 1,000 ML IV SCH ×3 (03:06→23:55)
[2022-03-20 06:19] LABS: Glucose,Whole Blood 121 mg/dL (70-110)
[2022-03-20] MEDS: INSULIN ASPART (NovoLOG) 100 UNIT/ML VIAL SQ SCH ×4 (06:28→20:27)
[2022-03-20] MEDS: LEVOTHYROXINE 75 MCG TAB PO SCH (06:42)
[2022-03-20] MEDS: FAMOTIDINE 20 MG TAB PO SCH (08:48)
[2022-03-20] MEDS: TAMSULOSIN 0.4 MG CAP.ER.24H PO SCH (08:48)
[2022-03-20] MEDS: METOPROLOL TARTRATE 12.5 MG TAB PO SCH ×2 (08:48→20:27)
--- NOTE | 2022-03-20 09:06 | P.PN ---
Subjective Progress Note Date: 03/20/22 Principal diagnosis: Abdominal pain, intra-abdominal fluid collection Patient is seen on rounds. He has some abdominal discomfort. No nausea or vomiting. He is tolerating a diet but complaining about the food being too hard to chew. Objective - Vital Signs Vital signs: Vital Signs Temp 97.7 F 03/20/22 07:52 Pulse 78 03/20/22 07:52 Resp 20 03/20/22 07:52 BP 108/64 03/20/22 07:52 Pulse Ox 95 03/20/22 07:52 FiO2 Intake & Output 03/19/22 03/20/22 03/20/22 18:59 06:59 18:59 Intake Total 118 730 180 Output Total 850 450 Balance -732 280 180 Intake: Intake, IV Titration 730 Amount Lactated Ringers 1,000 ml 480 @ 120 mls/hr IV .Q8H20M [facility] Rx#:[id number] Levofloxacin 250Mg-D5w 50 Pmx 250 mg In Dextrose/ Water 1 50ml.bag @ 50 mls /hr IVPB HS [facility] Rx#: [id number] metroNIDAZOLE-NS PMX 500 200 mg In Saline 1 100ml.bag @ 100 mls/hr IVPB Q6HR [facility] Rx#:[id number] Oral 118 180 Output: Drainage 250 150 Right Upper Abdomen 250 150 Urine 600 300 Stool 0 Other: Voiding Method Indwelling Catheter Indwelling Catheter # Bowel Movements 1 - Constitutional General appearance: Present: cooperative, no acute distress - Gastrointestinal Gastrointestinal Comment(s): Drain has some cloudy fluid. About 1200 mL since placement General gastrointestinal: Present: normal bowel sounds, soft - Labs CBC & Chem 7: 03/19/22 08:25 03/19/22 08:25 Labs: Abnormal Lab Results - Last 24 Hours (Table) 03/19/22 03/19/22 03/19/22 Range/Units 08:25 08:25 11:44 RBC 3.81 L (4.30-5.90) m/uL Hgb 11.4 L (13.0-17.5) gm/dL Hct 35.3 L (39.0-53.0) % Neutrophils # 9.7 H (1.3-7.7) k/uL Lymphocytes # 0.3 L (1.0-4.8) k/uL POC Glucose (mg/dL) 128 H (70-110) mg/dL Iron 15 L (65-175) ug/dL Transferrin 89.4 L (204.0-354.0) mg/dL Ferritin 547.0 H (22.0-322.0) ng/mL 03/19/22 03/19/22 03/20/22 Range/Units 16:56 20:24 06:17 RBC (4.30-5.90) m/uL Hgb (13.0-17.5) gm/dL Hct (39.0-53.0) % Neutrophils # (1.3-7.7) k/uL Lymphocytes # (1.0-4.8) k/uL POC Glucose (mg/dL) 134 H 159 H 121 H (70-110) mg/dL Iron (65-175) ug/dL Transferrin (204.0-354.0) mg/dL Ferritin (22.0-322.0) ng/mL Microbiology - Last 24 Hours (Table) 03/16/22 15:14 Blood Culture - Preliminary Blood No Growth after 72 hours 03/17/22 13:50 Anaerobic Culture - Preliminary Aspirate 03/16/22 13:14 Blood Culture - Preliminary Blood No Growth after 72 hours Assessment and Plan (1) Intra-abdominal fluid collection Current Visit: Yes Status: Acute Code(s): R18.8 - OTHER ASCITES SNOMED Code(s): 756623702 (2) Abdominal pain Current Visit: Yes Status: Acute Code(s): R10.9 - UNSPECIFIED ABDOMINAL PAIN SNOMED Code(s): 01995759 Plan: Cultures have been no growth to date. I will repeat the CT scan to check for resolution of the fluid collection. Asked dietary to see him regarding food preferences. Currently nonsurgical
[2022-03-20] MEDS: IOPAMIDOL CONTRAST (ORAL USE) VIAL PO PRN ×2 (10:01→11:02)
--- NOTE | 2022-03-20 11:08 | P.PN ---
Subjective Progress Note Date: 03/20/22 No new complaints today. Drain in place. Plan is for repeat CT A/P. Nothing growing from microbiology. Gen: awake, alert HEENT: normocephalic, atraumatic, good hearing acuity, moist mucous membranes Resp: good air exchange, breathing comfortably with no accessory muscle use CVS: good distal perfusion x 4, GI: soft, NTTP, ND : no SPT, no CVAT, milligan catheter is present MSK: no pitting edema, no clubbing Neuro: non-focal, moving all extremities Psych: cooperative, euthymic mood Assessment/plan: Right upper quadrant fluid collection No clinial signs of cholecystitis but possible ruptured pinky bs bilioma vs other - s/p IR drain placement, await cultures - flagyl/ levaquin - surgery recs - repeat CT A/P on 03/20, pending AGATHA - hold Diuretics, hold entresto - IVF - repeat in AM if increasing consult nephro - renal US without hydro Aneima, possible acute blood loss - follow CBC - check iron studies Hematuria, improving - conitnue to monitor - continue with milligan - flomax DM 2 - SSI, Levemir HTN, now with hypotension CAD with hx of [place] Paroxysmal. A fib - now with PPM, atrial paced - Lipitor - metoprolol , hold entresto and lasix - tele - hold eliquis Objective - Vital Signs Vital signs: Vital Signs Temp 97.7 F 03/20/22 07:52 Pulse 78 03/20/22 07:52 Resp 20 03/20/22 07:52 BP 108/64 03/20/22 07:52 Pulse Ox 95 03/20/22 07:52 FiO2 Intake & Output 03/19/22 03/20/22 03/20/22 18:59 06:59 18:59 Intake Total 118 730 180 Output Total 850 450 Balance -732 280 180 Intake: Intake, IV Titration 730 Amount Lactated Ringers 1,000 ml 480 @ 120 mls/hr IV .Q8H20M [facility] Rx#:[id number] Levofloxacin 250Mg-D5w 50 Pmx 250 mg In Dextrose/ Water 1 50ml.bag @ 50 mls /hr IVPB HS [facility] Rx#: [id number] metroNIDAZOLE-NS PMX 500 200 mg In Saline 1 100ml.bag @ 100 mls/hr IVPB Q6HR [facility] Rx#:[id number] Oral 118 180 Output: Drainage 250 150 Right Upper Abdomen 250 150 Urine 600 300 Stool 0 Other: Voiding Method Indwelling Catheter Indwelling Catheter # Bowel Movements 1 - Labs CBC & Chem 7: 03/19/22 08:25 03/19/22 08:25 Labs: Abnormal Lab Results - Last 24 Hours (Table) 03/19/22 03/19/22 03/19/22 Range/Units 08:25 11:44 16:56 POC Glucose (mg/dL) 128 H 134 H (70-110) mg/dL Iron 15 L (65-175) ug/dL Transferrin 89.4 L (204.0-354.0) mg/dL Ferritin 547.0 H (22.0-322.0) ng/mL 03/19/22 03/20/22 Range/Units 20:24 06:17 POC Glucose (mg/dL) 159 H 121 H (70-110) mg/dL Iron (65-175) ug/dL Transferrin (204.0-354.0) mg/dL Ferritin (22.0-322.0) ng/mL Microbiology - Last 24 Hours (Table) 03/16/22 15:14 Blood Culture - Preliminary Blood No Growth after 72 hours 03/17/22 13:50 Anaerobic Culture - Preliminary Aspirate 03/16/22 13:14 Blood Culture - Preliminary Blood No Growth after 72 hours
[2022-03-20 11:54] LABS: Glucose,Whole Blood 80 mg/dL (70-110)
--- NOTE | 2022-03-20 12:06 | CT ---
EXAMINATION TYPE: CT abdomen pelvis wo con CT DLP: 1419 mGycm, Automated exposure control for dose reduction was used. DATE OF EXAM: 03/20/2022 11:43 AM COMPARISON: CT-guided abscess drainage 03/17/2022. CLINICAL INDICATION:Male, 81 years old with history of follow up percutaneous drainage fluid collecti on; TECHNIQUE: Standard CT of the abdomen and pelvis following the administration of oral contrast. Cor onal and sagittal reformats were performed. FINDINGS: Evaluation is limited due to lack of IV contrast. LOWER CHEST: Trace left and small right pleural effusion associated atelectasis. Left lower lobe calc ified granulomas. Postsurgical changes of the heart. Cardiac pacemaking leads identified. ABDOMEN LIVER: Dysmorphic appearance to the liver without suspicious lesion on this noncontrast exam. GALLBLADDER AND BILE DUCTS: Contracted gallbladder with cholelithiasis with suspected wall thickening . There is surrounding ascites. No biliary ductal dilatation. PANCREAS: Unremarkable noncontrast appearance. SPLEEN: Scattered punctate calcifications likely calcified granulomas. Spleen is nonenlarged. ADRENAL GLANDS: Unremarkable noncontrast appearance.. KIDNEYS AND URETERS: No evidence of hydronephrosis or renal calculus. Nonspecific perinephric fat str anding/fluid. PELVIS BLADDER: Decompressed with [place] catheter in place. Nondependent gas likely from catheter placement. REPRODUCTIVE: Unremarkable noncontrast appearance. ABDOMEN & PELVIS STOMACH AND BOWEL: Residual oral contrast demonstrated within the distal esophagus. No focal wall thi ckening. No extravasation of oral contrast. No evidence of bowel obstruction. PERITONEUM: No evidence of pneumoperitoneum. Right anterior lateral wall pigtail drainage catheter id entified terminating in the anterior right lower quadrant. Decreased size of right lower quadrant flu id collection measuring 9.7 x 4.3 cm (series 201, image 65), previously 11.6 x 4.2 cm when measuring with similar technique. No gas within this collection Interval development of small volume partially loculated ascites throughout the abdomen and pelvis. This is most prominent within the pelvis. Locula jon collections in the rectovesical region measuring 6.9 x 5.3 cm and anterior left of the urinary bl adder measuring 10.1 x 7.2 cm. No gas is identified within these collections. VASCULATURE: Moderate atherosclerotic calcifications are present throughout the abdominal aorta and i ts branches. No evidence of aortic aneurysm. MUSCULOSKELETAL: No acute osseous abnormalities. Median sternotomy wires. LYMPH NODES: No gross evidence for lymphadenopathy. SOFT TISSUE/ABDOMINAL WALL: Diffuse anasarca. Small umbilical hernia containing fat and ascites. Calc ifications demonstrated within the anterior lower abdominal wall subcutaneous tissues. Bilateral gyne comastia. IMPRESSION: 1. Right lower quadrant pigtail catheter remains in place with decrease in size of right lower quadra nt fluid collection. 2. Interval development of small volume ascites with 2 partially loculated fluid collections in the p emma as described above. 3. Contracted gallbladder with cholelithiasis and suggested wall thickening. This is nonspecific with differential including congestive heart failure, pelvis or disease or calculus cholecystitis. 4. Trace left and small right pleural effusions with associated atelectasis.
[2022-03-20 16:22] LABS: Glucose,Whole Blood 82 mg/dL (70-110)
[2022-03-20] MEDS: FUROSEMIDE 20 MG TAB PO SCH (17:15)
[2022-03-20 19:50] LABS: Glucose,Whole Blood 121 mg/dL (70-110)
[2022-03-20] MEDS: LEVOFLOXACIN 250 MG TAB PO SCH (20:27)
[2022-03-20] MEDS: INSULIN DETEMIR (LEVEMIR) 100 UNIT/ML SYR SQ SCH (20:27)
[2022-03-20] MEDS: ATORVASTATIN 80 MG TAB PO SCH (20:27)
[2022-03-20] MEDS: MORPHINE SULFATE 4 MG/ML SYRINGE IV PRN (20:36)
[2022-03-20] MEDS: ACETAMINOPHEN TAB 325 MG TAB PO PRN (20:36)
[2022-03-21 06:08] LABS: Glucose,Whole Blood 159 mg/dL (70-110)
[2022-03-21] MEDS: LEVOTHYROXINE 75 MCG TAB PO SCH (06:17)
[2022-03-21] MEDS: INSULIN ASPART (NovoLOG) 100 UNIT/ML VIAL SQ SCH ×4 (06:17→20:51)
[2022-03-21] MEDS: metroNIDAZOLE-NS PMX 500 MG in SALINE 1 100ML.BAG IVPB SCH ×3 (06:17→17:30)
[2022-03-21] MEDS: LACTATED RINGERS 1,000 ML IV SCH ×3 (07:57→16:16)
--- NOTE | 2022-03-21 08:47 | P.PN ---
Subjective Progress Note Date: 03/21/22 Principal diagnosis: Abdominal pain, intra-abdominal fluid collection The patient was seen on rounds. He is feeling better today. TOlerating a diet. Denies pain. Just feels uncomfortable Objective - Vital Signs Vital signs: Vital Signs Temp 97.6 F 03/21/22 07:16 Pulse 86 03/21/22 07:16 Resp 20 03/21/22 07:16 BP 123/68 03/21/22 07:16 Pulse Ox 95 03/21/22 07:16 FiO2 Intake & Output 03/20/22 03/21/22 03/21/22 18:59 06:59 18:59 Intake Total 1320 180 Output Total 1075 1350 350 Balance 245 -1350 -170 Weight 100.698 kg Intake: Intake, IV Titration 960 Amount Lactated Ringers 1,000 ml 960 @ 120 mls/hr IV .Q8H20M [facility] Rx#:[id number] Oral 360 180 Output: Drainage 875 800 150 Right Upper Abdomen 875 800 150 Urine 200 550 200 Uretheral (Wright) 200 Stool 0 Other: Voiding Method Indwelling Catheter Indwelling Catheter Indwelling Catheter # Bowel Movements 1 2 1 - Constitutional General appearance: Present: cooperative, no acute distress - Gastrointestinal Gastrointestinal Comment(s): Drain turbid dark brown, greenish General gastrointestinal: Present: soft. Absent: tenderness - Labs CBC & Chem 7: 03/19/22 08:25 03/19/22 08:25 Labs: Abnormal Lab Results - Last 24 Hours (Table) 03/20/22 03/21/22 Range/Units 19:48 06:07 POC Glucose (mg/dL) 121 H 159 H (70-110) mg/dL Microbiology - Last 24 Hours (Table) 03/17/22 13:47 Gram Stain - Preliminary Aspirate Body Fluid Culture - Preliminary Gram Neg Bacilli 03/16/22 15:14 Blood Culture - Preliminary Blood No Growth after 96 hours 03/16/22 13:14 Blood Culture - Preliminary Blood No Growth after 96 hours Assessment and Plan (1) Intra-abdominal fluid collection Current Visit: Yes Status: Acute Code(s): R18.8 - OTHER ASCITES SNOMED Code(s): 268971562 (2) Abdominal pain Current Visit: Yes Status: Acute Code(s): R10.9 - UNSPECIFIED ABDOMINAL PAIN SNOMED Code(s): 86056377 Plan: The repeat CT scan shows new fluid collection in pelvis. The drained fluid collection appears to be significantly decompressed. The drainage from thursday(8-1) is showing rare gram negative bacilli (8-4). Will ask radiology to place a drain in the superficial lower fluid collection with repeat culture, gram stain and cell count. The patients abdomen is benign. Gallbladder appears unremarkable on imaging and LFT's and WBC have been normal since admission so acute cholecystitis with perforation felt to be unlikely. No bacteria seen on initial gram stain so significant infectious process not seen. Will continue to follow closely but clinically the patient has a benign, nonsurgical abdomen.
[2022-03-21] MEDS: FAMOTIDINE 20 MG TAB PO SCH (09:00)
[2022-03-21] MEDS: TAMSULOSIN 0.4 MG CAP.ER.24H PO SCH (09:01)
[2022-03-21] MEDS: METOPROLOL TARTRATE 12.5 MG TAB PO SCH ×2 (09:01→20:51)
[2022-03-21] MEDS: FUROSEMIDE 20 MG TAB PO SCH (09:01)
--- NOTE | 2022-03-21 10:33 | P.PN ---
Subjective Progress Note Date: 03/21/22 No new complaints today. Drain in place. CT A/P shows new loculated fluid collection. Aspirate growing GNR, pending speciation Gen: awake, alert HEENT: normocephalic, atraumatic, good hearing acuity, moist mucous membranes Resp: good air exchange, breathing comfortably with no accessory muscle use CVS: good distal perfusion x 4, GI: soft, NTTP, ND : no SPT, no CVAT, milligan catheter is present MSK: no pitting edema, no clubbing Neuro: non-focal, moving all extremities Psych: cooperative, euthymic mood Assessment/plan: Right upper quadrant fluid collection No clinial signs of cholecystitis but possible ruptured pinky bs bilioma vs other - s/p IR drain placement, await cultures = growing GNRs - flagyl/ levaquin - surgery recs - repeat CT A/P on 03/20, shows new loculated fluid collection - requires new drain, surgery addressing AGATHA - hold Diuretics, hold entresto - IVF - repeat in AM if increasing consult nephro - renal US without hydro Aneima, possible acute blood loss - follow CBC - check iron studies Hematuria, improving - conitnue to monitor - continue with milligan - flomax DM 2 - SSI, Levemir HTN, now with hypotension CAD with hx of [place] Paroxysmal. A fib - now with PPM, atrial paced - Lipitor - metoprolol , hold entresto and lasix - tele - hold eliquis Objective - Vital Signs Vital signs: Vital Signs Temp 97.6 F 03/21/22 07:16 Pulse 86 03/21/22 07:16 Resp 20 03/21/22 07:16 BP 123/68 03/21/22 07:16 Pulse Ox 95 03/21/22 07:16 FiO2 Intake & Output 03/20/22 03/21/22 03/21/22 18:59 06:59 18:59 Intake Total 1320 180 Output Total 1075 1350 350 Balance 245 -1350 -170 Weight 100.698 kg Intake: Intake, IV Titration 960 Amount Lactated Ringers 1,000 ml 960 @ 120 mls/hr IV .Q8H20M [facility] Rx#:[id number] Oral 360 180 Output: Drainage 875 800 150 Right Upper Abdomen 875 800 150 Urine 200 550 200 Uretheral (Milligan) 200 Stool 0 Other: Voiding Method Indwelling Catheter Indwelling Catheter Indwelling Catheter # Bowel Movements 1 2 1 - Labs CBC & Chem 7: 03/19/22 08:25 03/19/22 08:25 Labs: Abnormal Lab Results - Last 24 Hours (Table) 03/20/22 03/21/22 Range/Units 19:48 06:07 POC Glucose (mg/dL) 121 H 159 H (70-110) mg/dL Microbiology - Last 24 Hours (Table) 03/17/22 13:47 Gram Stain - Preliminary Aspirate Body Fluid Culture - Preliminary Gram Neg Bacilli 03/16/22 15:14 Blood Culture - Preliminary Blood No Growth after 96 hours 03/16/22 13:14 Blood Culture - Preliminary Blood No Growth after 96 hours
[2022-03-21] MEDS: MORPHINE SULFATE 4 MG/ML SYRINGE IV PRN (10:49)
[2022-03-21 11:33] LABS: Basophils % (A) 0 %; Eosinophils # (A) 0.2 k/uL (0-0.7); Eosinophils % (A) 2 %; HCT 36.6 % (39.0-53.0); HGB 11.7 gm/dL (13.0-17.5); Hypochromasia Slight; Lymphocytes # (A) 0.3 k/uL (1.0-4.8); Lymphocytes % (A) 3 %; MCHC 31.9 g/dL (31.0-37.0); MCV 93.9 fL (80.0-100.0); Mean Platelet Volume 8.3; Monocytes % (A) 9 %; Neutrophils # (A) 8.9 k/uL (1.3-7.7); Neutrophils % (A) 85 %; Platelet Count 203 k/uL (150-450); RDW 15.3 % (11.5-15.5); WBC 10.5 k/uL (3.8-10.6)
[2022-03-21 11:45] LABS: Glucose,Whole Blood 153 mg/dL (70-110)
[2022-03-21 12:03] LABS: Calcium 7.9 mg/dL (8.4-10.2); Magnesium 2.1 mg/dL (1.6-2.3); Potassium 3.2 mmol/L (3.5-5.1)
--- NOTE | 2022-03-21 13:34 | CT ---
EXAMINATION TYPE: CT guided abscess drainage DATE OF EXAM: 03/21/2022 HISTORY: Abnormal pelvic fluid collection, abnormal CT COMPARISON: CT 03/20/2022 PROCEDURE: Maximal barrier technique was utilized. The skin over suitable path to the abnormal fluid collection in the left lower quadrant was localized with CT and the overlying skin prepped and draped. Lidocai ne was used for local anesthesia. A skin rudy made with a scalpel. Access was gained using Reniac nce with a 21-gauge needle, clear brownish material returned in the hub of the needle. A 0.018 inch wire was advanced and the access site was upsized, the wire was upsized and subsequently an 8.5-Frenc h drain was deployed within the abscess cavity and fixed in place. Catheter attached to gravity jefe hernandez. No immediate complication. Aspirated material sent for laboratory analysis and draining into t he bag. The patient remained in stable condition. IMPRESSION: STATUS POST CT GUIDED PELVIC FLUID COLLECTION DRAINAGE, MICROBIOLOGY ANALYSIS IS PENDING. THIS PROCE DURE WAS PERFORMED BY THE UNDERSIGNED.
[2022-03-21 16:57] LABS: Glucose,Whole Blood 168 mg/dL (70-110)
[2022-03-21 20:30] LABS: Glucose,Whole Blood 208 mg/dL (70-110)
[2022-03-21] MEDS: LEVOFLOXACIN 250 MG TAB PO SCH (20:51)
[2022-03-21] MEDS: INSULIN DETEMIR (LEVEMIR) 100 UNIT/ML SYR SQ SCH (20:51)
[2022-03-21] MEDS: ATORVASTATIN 80 MG TAB PO SCH (20:51)
[2022-03-22] MEDS: metroNIDAZOLE-NS PMX 500 MG in SALINE 1 100ML.BAG IVPB SCH ×5 (01:08→19:48)
[2022-03-22 02:03] LABS: Appearance,BF Cloudy
[2022-03-22 06:07] LABS: Glucose,Whole Blood 124 mg/dL (70-110)
[2022-03-22] MEDS: LEVOTHYROXINE 75 MCG TAB PO SCH (06:32)
[2022-03-22] MEDS: INSULIN ASPART (NovoLOG) 100 UNIT/ML VIAL SQ SCH ×4 (07:01→22:37)
--- NOTE | 2022-03-22 10:04 | P.PN ---
Subjective Progress Note Date: 03/22/22 Patient seen and examined. Not acute events, IR guided drain yesterday was placed. Both IR drains have some darker straw colored output. Patient is tolerating diet and is on commode having BM Objective - Vital Signs Vital signs: Vital Signs Temp 97.4 F L 03/22/22 04:00 Pulse 78 03/22/22 04:00 Resp 17 03/22/22 04:00 BP 101/59 03/22/22 04:00 Pulse Ox 99 03/22/22 04:00 FiO2 Intake & Output 03/21/22 03/22/22 03/22/22 18:59 06:59 18:59 Intake Total 390 2980 Output Total 1275 525 Balance -885 2455 Intake: IV 10 Invasive Line 2 10 Intake, IV Titration 200 2440 Amount Lactated Ringers 1,000 ml 1440 @ 120 mls/hr IV .Q8H20M [facility] Rx#:[id number] metroNIDAZOLE-NS PMX 839 587 1535 mg In Saline 1 100ml.bag @ 100 mls/hr IVPB Q6HR [facility] Rx#:[id number] Oral 180 540 Output: Drainage 625 200 Right Lower Abdomen 250 100 Right Upper Abdomen 375 100 Urine 650 325 Uretheral (Wright) 650 325 Other: Voiding Method Indwelling Catheter Diaper Indwelling Catheter # Bowel Movements 1 - Constitutional General appearance: Present: cooperative - Respiratory Details: nonlabored - Cardiovascular Rhythm: regular - Gastrointestinal Gastrointestinal Comment(s): S/NT/ND IR drains in place with dark straw colored output - Labs CBC & Chem 7: 03/21/22 10:43 03/21/22 10:43 Labs: Abnormal Lab Results - Last 24 Hours (Table) 03/21/22 03/21/22 03/21/22 Range/Units 10:43 10:43 11:43 RBC 3.90 L (4.30-5.90) m/uL Hgb 11.7 L (13.0-17.5) gm/dL Hct 36.6 L (39.0-53.0) % Neutrophils # 8.9 H (1.3-7.7) k/uL Lymphocytes # 0.3 L (1.0-4.8) k/uL Sodium 136 L (137-145) mmol/L Potassium 3.2 L (3.5-5.1) mmol/L Chloride 108 H (98-107) mmol/L BUN 73 H (9-20) mg/dL Creatinine 1.33 H (0.66-1.25) mg/dL Glucose 141 H (74-99) mg/dL POC Glucose (mg/dL) 153 H (70-110) mg/dL Calcium 7.9 L (8.4-10.2) mg/dL 03/21/22 03/21/22 03/22/22 Range/Units 16:55 20:29 06:05 RBC (4.30-5.90) m/uL Hgb (13.0-17.5) gm/dL Hct (39.0-53.0) % Neutrophils # (1.3-7.7) k/uL Lymphocytes # (1.0-4.8) k/uL Sodium (137-145) mmol/L Potassium (3.5-5.1) mmol/L Chloride (98-107) mmol/L BUN (9-20) mg/dL Creatinine (0.66-1.25) mg/dL Glucose (74-99) mg/dL POC Glucose (mg/dL) 168 H 208 H 124 H (70-110) mg/dL Calcium (8.4-10.2) mg/dL Microbiology - Last 24 Hours (Table) 03/21/22 13:10 Gram Stain - Preliminary Aspirate Body Fluid Culture - Preliminary 03/21/22 13:10 Anaerobic Culture - Preliminary Aspirate 03/17/22 13:50 Anaerobic Culture - Final Aspirate 03/17/22 13:47 Gram Stain - Final Aspirate Body Fluid Culture - Final Klebsiella pneumoniae 03/16/22 15:14 Blood Culture - Preliminary Blood No Growth after 120 hours 03/16/22 13:14 Blood Culture - Preliminary Blood No Growth after 120 hours Assessment and Plan Assessment: Intrabomindal fluid collections S/P IR guided drains. Plan: Continue IR drains. No plans for acute surgical intervention at this time.
[2022-03-22] MEDS: METOPROLOL TARTRATE 12.5 MG TAB PO SCH ×2 (10:12→22:38)
[2022-03-22] MEDS: FUROSEMIDE 20 MG TAB PO SCH (10:13)
[2022-03-22] MEDS: FAMOTIDINE 20 MG TAB PO SCH (10:13)
[2022-03-22] MEDS: LACTOBACILLUS ACIDOPH & BULGAR 1 EACH PACKET PO SCH ×2 (10:13→22:37)
[2022-03-22] MEDS: TAMSULOSIN 0.4 MG CAP.ER.24H PO SCH (10:14)
[2022-03-22 11:28] LABS: Glucose,Whole Blood 215 mg/dL (70-110)
--- NOTE | 2022-03-22 13:41 | P.PN ---
Subjective Progress Note Date: 03/22/22 Principal diagnosis: Abscess follow up Pt was seen. Sleepy. No events overnight Objective - Vital Signs Vital signs: Vital Signs Temp 97.9 F 03/22/22 08:00 Pulse 81 03/22/22 08:00 Resp 18 03/22/22 08:00 BP 117/64 03/22/22 08:00 Pulse Ox 94 L 03/22/22 08:00 FiO2 Intake & Output 03/21/22 03/22/22 03/22/22 18:59 06:59 18:59 Intake Total 390 2980 Output Total 1275 525 Balance -885 2455 Intake: IV 10 Invasive Line 2 10 Intake, IV Titration 200 2440 Amount Lactated Ringers 1,000 ml 1440 @ 120 mls/hr IV .Q8H20M [facility] Rx#:[id number] metroNIDAZOLE-NS PMX 861 909 9652 mg In Saline 1 100ml.bag @ 100 mls/hr IVPB Q6HR [facility] Rx#:[id number] Oral 180 540 Output: Drainage 625 200 Right Lower Abdomen 250 100 Right Upper Abdomen 375 100 Urine 650 325 Uretheral (Milligan) 650 325 Other: Voiding Method Indwelling Catheter Diaper Indwelling Catheter # Bowel Movements 1 - Exam Gen: awake, alert HEENT: normocephalic, atraumatic, good hearing acuity, moist mucous membranes Resp: good air exchange, breathing comfortably with no accessory muscle use CVS: good distal perfusion x 4, GI: soft, NTTP, ND : no SPT, no CVAT, milligan catheter is present MSK: no pitting edema, no clubbing Neuro: non-focal, moving all extremities Psych: cooperative, euthymic mood - Labs CBC & Chem 7: 03/21/22 10:43 03/21/22 10:43 Labs: Abnormal Lab Results - Last 24 Hours (Table) 03/21/22 03/21/22 03/22/22 Range/Units 16:55 20:29 06:05 POC Glucose (mg/dL) 168 H 208 H 124 H (70-110) mg/dL 03/22/22 Range/Units 11:27 POC Glucose (mg/dL) 215 H (70-110) mg/dL Microbiology - Last 24 Hours (Table) 03/21/22 13:10 Gram Stain - Preliminary Aspirate Body Fluid Culture - Preliminary 03/21/22 13:10 Anaerobic Culture - Preliminary Aspirate 03/17/22 13:50 Anaerobic Culture - Final Aspirate 03/17/22 13:47 Gram Stain - Final Aspirate Body Fluid Culture - Final Klebsiella pneumoniae 03/16/22 15:14 Blood Culture - Preliminary Blood No Growth after 120 hours 03/16/22 13:14 Blood Culture - Preliminary Blood No Growth after 120 hours Assessment and Plan Plan: Assessment/plan: Right upper quadrant fluid collection No clinial signs of cholecystitis - s/p IR drain placement. Cultres positive for Klebsiella P .Michele - Sensitive - Recommend to change antibiotic to Cefepime 1gm daily for 10 days. 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 A fib - now with PPM, atrial paced - Lipitor - metoprolol , hold entresto and lasix due to agatha - tele - Cont eliquis 5mg bid for Afib DVT PPX: Home Eliquis Time with Patient: Greater than 30
[2022-03-22] MEDS: CEFEPIME 2 GM in SODIUM CHLORIDE 0.9% 100 ML IVPB SCH (15:19)
[2022-03-22 17:11] LABS: Glucose,Whole Blood 254 mg/dL (70-110)
[2022-03-22] MEDS: FERROUS SULFATE 325 MG TAB PO SCH (17:57)
[2022-03-22] MEDS: LACTATED RINGERS 1,000 ML IV SCH ×2 (19:50→22:36)
[2022-03-22 20:05] LABS: Glucose,Whole Blood 221 mg/dL (70-110)
[2022-03-22] MEDS: APIXABAN 5 MG TAB PO SCH (22:36)
[2022-03-22] MEDS: INSULIN DETEMIR (LEVEMIR) 100 UNIT/ML SYR SQ SCH (22:37)
[2022-03-22] MEDS: ATORVASTATIN 80 MG TAB PO SCH (22:37)
[2022-03-23] MEDS: metroNIDAZOLE-NS PMX 500 MG in SALINE 1 100ML.BAG IVPB SCH ×2 (02:45→12:16)
[2022-03-23] MEDS: CEFEPIME 2 GM in SODIUM CHLORIDE 0.9% 100 ML IVPB SCH ×2 (04:12→14:23)
[2022-03-23] MEDS: ACETAMINOPHEN TAB 325 MG TAB PO PRN ×2 (04:55→22:24)
[2022-03-23] MEDS: LEVOTHYROXINE 75 MCG TAB PO SCH (05:37)
[2022-03-23 07:14] LABS: Glucose,Whole Blood 112 mg/dL (70-110)
[2022-03-23] MEDS: INSULIN ASPART (NovoLOG) 100 UNIT/ML VIAL SQ SCH ×4 (07:52→20:43)
[2022-03-23] MEDS: FAMOTIDINE 20 MG TAB PO SCH (08:07)
[2022-03-23] MEDS: METOPROLOL TARTRATE 12.5 MG TAB PO SCH ×2 (08:07→20:44)
[2022-03-23] MEDS: FUROSEMIDE 20 MG TAB PO SCH (08:07)
[2022-03-23] MEDS: FERROUS SULFATE 325 MG TAB PO SCH ×2 (08:07→17:04)
[2022-03-23] MEDS: TAMSULOSIN 0.4 MG CAP.ER.24H PO SCH (08:07)
[2022-03-23] MEDS: LACTOBACILLUS ACIDOPH & BULGAR 1 EACH PACKET PO SCH ×2 (08:07→20:44)
[2022-03-23] MEDS: APIXABAN 5 MG TAB PO SCH ×3 (08:07→20:43)
[2022-03-23] MEDS ORDERED: CEFEPIME 1 GM in SODIUM CHLORIDE 0.9% 50 ML IVPB SCH (09:00)
[2022-03-23 11:42] LABS: Glucose,Whole Blood 130 mg/dL (70-110)
[2022-03-23] MEDS: LACTATED RINGERS 1,000 ML IV SCH ×3 (12:34→15:51)
--- NOTE | 2022-03-23 14:56 | P.PN ---
Subjective Progress Note Date: 03/23/22 Principal diagnosis: Abdominal pain Follow up Pt was seen no events overnight Abd pain improving Denied CP , nausea nd vomiting Objective - Vital Signs Vital signs: Vital Signs Temp 98.0 F 03/23/22 08:00 Pulse 80 03/23/22 08:00 Resp 18 03/23/22 08:00 BP 120/62 03/23/22 08:00 Pulse Ox 97 03/23/22 08:00 FiO2 Intake & Output 03/22/22 03/23/22 03/23/22 18:59 06:59 18:59 Output Total 800 475 Balance -800 -475 Output: Drainage 550 175 Right Lower Abdomen 450 25 Right Upper Abdomen 100 150 Urine 250 300 Stool 0 Other: Voiding Method Diaper Diaper Indwelling Catheter Indwelling Catheter - Exam Gen: A&O x3-4 NAD Abd: drains intact. Draining bile. Soft. ND , NT BS + Lungs: CTAB Ht; NSR Skin Warm and dry - Labs CBC & Chem 7: 03/21/22 10:43 03/23/22 07:50 Labs: Abnormal Lab Results - Last 24 Hours (Table) 03/22/22 03/22/22 03/23/22 Range/Units 17:09 20:03 07:12 Creatinine (0.66-1.25) mg/dL POC Glucose (mg/dL) 254 H 221 H 112 H (70-110) mg/dL 03/23/22 03/23/22 Range/Units 07:50 11:40 Creatinine 1.30 H (0.66-1.25) mg/dL POC Glucose (mg/dL) 130 H (70-110) mg/dL Microbiology - Last 24 Hours (Table) 03/21/22 13:10 Gram Stain - Preliminary Aspirate Body Fluid Culture - Preliminary 03/16/22 15:14 Blood Culture - Final Blood No Growth after 144 hours 03/16/22 13:14 Blood Culture - Final Blood No Growth after 144 hours Assessment and Plan Assessment: Assessment/plan: Right upper quadrant fluid collection No clinial signs of cholecystitis - s/p IR drain placement. Cultres positive for Klebsiella P .Michele - Sensitive - Recommend to change antibiotic to Cefepime 1gm daily for 10 days. 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 iron level low Ferrous sulfate 325 Hematuria, resolved - conitnue to monitor - continue with milligan - flomax DM 2 - SSI, Levemir HTN blood pressure is soft Cont to monitor CAD with hx of [place] Paroxysmal. A fib - now with PPM, atrial paced - Lipitor - metoprolol , hold entresto and lasix due to agatha - tele - Cont eliquis 5mg bid for Afib DVT PPX: Home Eliquis Time with Patient: Greater than 30
[2022-03-23 16:50] LABS: HCT 29.8 % (39.6-50.0); HGB 9.6 g/dL (13.0-17.0); MCH 28.3 pg (27.0-32.0); MCHC 32.2 g/dL (32.0-37.0); MCV 87.9 fL (80.0-97.0); Mean Platelet Volume 10.9 fL (9.5-12.2); NRBC Per 100 WBC 0 /100 WBCS (0.0-0.0); Platelet Count 191 X 10*3/uL (140-440); RBC 3.39 X 10*6/uL (4.40-5.60); RDW 15.9 % (11.5-14.5); WBC 10.84 X 10*3/uL (4.50-10.00)
[2022-03-23 16:54] LABS: African American GFR (CKD) 57.9 (60.0-200.0); Anion Gap 10.4 mmol/L (10.00-18.00); BUN/Creat Ratio 43.36 Ratio (12.00-20.00); Blood Urea Nitrogen 56.8 mg/dL (9.0-27.0); Calcium 7.9 mg/dL (8.7-10.3); Carbon Dioxide 21.3 mmol/L (20.0-27.5); Potassium 3.4 mmol/L (3.5-5.5)
[2022-03-23 16:56] LABS: Glucose,Whole Blood 241 mg/dL (70-110)
[2022-03-23 20:12] LABS: Glucose,Whole Blood 237 mg/dL (70-110)
[2022-03-23] MEDS: ATORVASTATIN 80 MG TAB PO SCH (20:43)
[2022-03-23] MEDS: INSULIN DETEMIR (LEVEMIR) 100 UNIT/ML SYR SQ SCH (20:43)
--- NOTE | 2022-03-23 22:34 | P.CONS ---
History of Present Illness - Reason for Consult Consult date: 03/23/22 - History of Present Illness Patient is a 82-year-old female with a past medical history significant for metastatic breast cancer in this patient who was recently admitted at this facility about a week ago and apparently was treated for Levaquin, the patient was admitted to this hospital from 03/15/2022 to 03/18/2022, patient did have a negative blood culture and urine culture were multiple pathogen possible contamination patient has taken Levaquin for about 7 days and is presenting back to the hospital yesterday afternoon for evaluation of increased weakness shortness of breath and abdominal discomfort patient mention she did have some fever last week on Thursday and however has not been able to tell me how high the fever was patient denies any headache or URI symptoms no chest pain or shortness of breath or cough has been complaints of vague lower abdominal pain and nausea but no vomiting denies having any diarrhea or constipation and no burning or frequency of urine patient on presentation to the hospital was afebrile and no fever have been recorded subsequently patient did have a normal white count with no left shift creatinine has been normal her liver exams are elevated patient urine has been negative blood cultures obtained which are currently pending patient did have a CT of the chest abdominal pelvis with IV contrast only to shows extensive hepatic metastatic disease extensive bone metastatic disease mild abdominal ascites and some effusion patient has been admitted to hospital infectious disease was consulted with concern for possible partially treated UTI Past Medical History Past Medical History: Cancer, Diabetes Mellitus, Hypertension, Myocardial Infarction (ID), Thyroid Disorder Additional Past Medical History / Comment(s): prostate cancer, pacer/defibrillator Last Myocardial Infarction Date:: 2017 History of Any Multi-Drug Resistant Organisms: None Reported Past Surgical History: Coronary Bypass/CABG, Heart Catheterization With Stent, Orthopedic Surgery, Tonsillectomy Additional Past Surgical History / Comment(s): triple bypass and then pacer/defib placed Past Anesthesia/Blood Transfusion Reactions: No Reported Reaction Date of Last Stent Placement:: 2017 Past Psychological History: No Psychological Hx Reported Smoking Status: Never smoker Past Alcohol Use History: None Reported Past Drug Use History: None Reported - Past Family History Mother Family Medical History: Cancer Father Family Medical History: Congestive Heart Failure (CHF) Medications and Allergies Home Medications Medication Instructions Recorded Confirmed Type Acetaminophen [Tylenol] 650 mg PO Q4H PRN 01/01/22 03/16/22 History Aspirin EC [Ecotrin Low Dose] 81 mg PO HS 01/01/22 03/16/22 History Atorvastatin [Lipitor] 80 mg PO HS 01/01/22 03/16/22 History Docusate [Colace] 100 mg PO DAILY PRN 01/01/22 03/16/22 History Famotidine [Pepcid] 20 mg PO DAILY 01/01/22 03/16/22 History Levothyroxine Sodium [Synthroid] 150 mcg PO DAILY 01/01/22 03/16/22 History Metoprolol Tartrate [Lopressor] 12.5 mg PO BID 01/01/22 03/16/22 History Potassium Chloride [Potassium 10 meq PO HS 01/01/22 03/16/22 History Chloride ER] Sacubitril/Valsartan [Entresto 49 1 tab PO BID 01/01/22 03/16/22 History mg-51 mg Tablet] Tamsulosin HCl [Flomax] 0.4 mg PO DAILY 01/01/22 03/16/22 History Apixaban [Eliquis] 5 mg PO BID #60 tab 01/03/22 03/16/22 Rx Furosemide [Lasix] 20 mg PO DAILY #30 tab 01/05/22 03/16/22 Rx Insulin Glargine [Lantus Vial] 14 unit SQ HS #0 01/05/22 03/16/22 Rx hydrALAZINE HCL [Apresoline] 25 mg PO TID #90 tab 01/05/22 03/16/22 Rx Allergies Allergy/AdvReac Type Severity Reaction Status Date / Time Penicillins Allergy Rash/Hives Verified 03/16/22 12:17 on entire body Physical Exam Vitals: Vital Signs Temp Pulse Resp BP BP Pulse Ox 03/23/22 08:00 98.0 F 80 18 120/62 97 03/23/22 01:41 98.3 F 73 18 111/64 98 03/22/22 21:29 97.6 F 73 18 105/57 102/62 95 Intake and Output 03/22/22 03/23/22 03/23/22 22:59 06:59 14:59 Output Total 475 475 Balance -475 -475 Output: Drainage 225 175 Right Lower Abdomen 225 25 Right Upper Abdomen 150 Urine 250 300 Other: Voiding Method Diaper Indwelling Catheter Results CBC & Chem 7: 03/23/22 11:46 03/23/22 11:46 Labs: Abnormal Lab Results - Last 24 Hours (Table) 03/22/22 03/22/22 03/23/22 Range/Units 17:09 20:03 07:12 Creatinine (0.66-1.25) mg/dL POC Glucose (mg/dL) 254 H 221 H 112 H (70-110) mg/dL 03/23/22 03/23/22 Range/Units 07:50 11:40 Creatinine 1.30 H (0.66-1.25) mg/dL POC Glucose (mg/dL) 130 H (70-110) mg/dL Microbiology - Last 24 Hours (Table) 03/21/22 13:10 Gram Stain - Preliminary Aspirate Body Fluid Culture - Preliminary 03/16/22 15:14 Blood Culture - Final Blood No Growth after 144 hours 03/16/22 13:14 Blood Culture - Final Blood No Growth after 144 hours Assessment and Plan Plan: 1patient presented to hospital abdominal pain in this patient did have abnormal CT followed by ultrasound suggestive of cholecystitis and fluid collection around the gallbladder area in this patient who is status post 2 different drainage procedure done by IR, the fluid collection in the right upper quadrant could correspond to the gallbladder however no clear explanation for the fluid in the lower abdominal area which has been drained on 03/21/2020 with the sensitivities and cultures currently pending. 2patient will benefit from laparoscopic procedure by general surgery to better define underlying pathology as controlling the source of these abscesses will be important in order to completely cure of this infection. 3continue with cefepime we will restart his Flagyl. We will follow on clinical condition and cultures to further adjust medication if needed Thank you for this consultation will follow this patient along with you Time with Patient: Greater than 30
--- NOTE | 2022-03-23 23:08 | P.PN ---
Subjective Progress Note Date: 03/23/22 Patient resting comfortably no complaints. Objective - Vital Signs Vital signs: Vital Signs Temp 97.6 F 03/23/22 14:00 Pulse 68 03/23/22 14:00 Resp 18 03/23/22 14:00 BP 107/65 03/23/22 14:00 Pulse Ox 98 03/23/22 14:00 FiO2 Intake & Output 03/23/22 03/23/22 03/24/22 06:59 18:59 06:59 Intake Total 100 Output Total 987 825 Balance -475 -771 Intake: Intake, IV Titration 100 Amount Cefepime 2 gm In Sodium 100 Chloride 0.9% 100 ml @ 25 mls/hr IVPB Q12H [facility] Rx# :[id number] Output: Drainage 175 275 Right Lower Abdomen 25 125 Right Upper Abdomen 150 150 Urine 300 550 Other: Voiding Method Diaper Indwelling Catheter Indwelling Catheter - Constitutional General appearance: Present: cooperative - Cardiovascular Rhythm: regular - Gastrointestinal Gastrointestinal Comment(s): S/NT/ND Drains with dark straw colored drainage some fibropurulence in drain - Psychiatric Psychiatric: Present: A&O x's 3 - Labs CBC & Chem 7: 03/23/22 11:46 03/23/22 11:46 Labs: Abnormal Lab Results - Last 24 Hours (Table) 03/23/22 03/23/22 03/23/22 Range/Units 07:12 07:50 11:40 WBC (4.50-10.00) X 10*3/uL RBC (4.40-5.60) X 10*6/uL Hgb (13.0-17.0) g/dL Hct (39.6-50.0) % RDW (11.5-14.5) % Potassium (3.5-5.5) mmol/L Chloride (96-109) mmol/L BUN (9.0-27.0) mg/dL Creatinine 1.30 H (0.66-1.25) mg/dL Est GFR (CKD-EPI)AfAm (60.0-200.0) Est GFR (CKD-EPI)NonAf (60.0-200.0) BUN/Creatinine Ratio (12.00-20.00) Ratio Glucose (70-110) mg/dL POC Glucose (mg/dL) 112 H 130 H (70-110) mg/dL Calcium (8.7-10.3) mg/dL 03/23/22 03/23/22 03/23/22 Range/Units 11:46 11:46 16:55 WBC 10.84 H (4.50-10.00) X 10*3/uL RBC 3.39 L (4.40-5.60) X 10*6/uL Hgb 9.6 L (13.0-17.0) g/dL Hct 29.8 L (39.6-50.0) % RDW 15.9 H (11.5-14.5) % Potassium 3.4 L (3.5-5.5) mmol/L Chloride 111 H (96-109) mmol/L BUN 56.8 H (9.0-27.0) mg/dL Creatinine (0.66-1.25) mg/dL Est GFR (CKD-EPI)AfAm 57.9 L (60.0-200.0) Est GFR (CKD-EPI)NonAf 50.0 L (60.0-200.0) BUN/Creatinine Ratio 43.36 H (12.00-20.00) Ratio Glucose 125 H (70-110) mg/dL POC Glucose (mg/dL) 241 H (70-110) mg/dL Calcium 7.9 L (8.7-10.3) mg/dL 03/23/22 Range/Units 20:10 WBC (4.50-10.00) X 10*3/uL RBC (4.40-5.60) X 10*6/uL Hgb (13.0-17.0) g/dL Hct (39.6-50.0) % RDW (11.5-14.5) % Potassium (3.5-5.5) mmol/L Chloride (96-109) mmol/L BUN (9.0-27.0) mg/dL Creatinine (0.66-1.25) mg/dL Est GFR (CKD-EPI)AfAm (60.0-200.0) Est GFR (CKD-EPI)NonAf (60.0-200.0) BUN/Creatinine Ratio (12.00-20.00) Ratio Glucose (70-110) mg/dL POC Glucose (mg/dL) 237 H (70-110) mg/dL Calcium (8.7-10.3) mg/dL Microbiology - Last 24 Hours (Table) 03/21/22 13:10 Gram Stain - Preliminary Aspirate Body Fluid Culture - Preliminary Assessment and Plan Assessment: Intrabomindal fluid collections S/P IR guided drains. Plan: Continue IR drains. No plans for acute surgical intervention at this time.
[2022-03-24] MEDS: metroNIDAZOLE 500 MG TAB PO SCH ×4 (01:01→21:43)
[2022-03-24] MEDS: CEFEPIME 2 GM in SODIUM CHLORIDE 0.9% 100 ML IVPB SCH ×2 (02:06→16:37)
[2022-03-24] MEDS: LEVOTHYROXINE 75 MCG TAB PO SCH (05:31)
[2022-03-24 07:04] LABS: Glucose,Whole Blood 224 mg/dL (70-110)
[2022-03-24] MEDS: LACTOBACILLUS ACIDOPH & BULGAR 1 EACH PACKET PO SCH ×2 (07:52→21:41)
[2022-03-24] MEDS: TAMSULOSIN 0.4 MG CAP.ER.24H PO SCH (07:52)
[2022-03-24] MEDS: APIXABAN 5 MG TAB PO SCH ×2 (07:52→21:41)
[2022-03-24] MEDS: FAMOTIDINE 20 MG TAB PO SCH (07:52)
[2022-03-24] MEDS: FUROSEMIDE 20 MG TAB PO SCH (07:52)
[2022-03-24] MEDS: INSULIN ASPART (NovoLOG) 100 UNIT/ML VIAL SQ SCH ×4 (07:52→21:41)
[2022-03-24] MEDS: FERROUS SULFATE 325 MG TAB PO SCH ×2 (07:52→16:37)
[2022-03-24] MEDS: METOPROLOL TARTRATE 12.5 MG TAB PO SCH ×2 (07:52→21:41)
[2022-03-24 08:49] LABS: HCT 30.4 % (39.6-50.0); HGB 9.4 g/dL (13.0-17.0); MCH 27.5 pg (27.0-32.0); MCHC 30.9 g/dL (32.0-37.0); MCV 88.9 fL (80.0-97.0); Mean Platelet Volume 10.9 fL (9.5-12.2); NRBC Per 100 WBC 0 /100 WBCS (0.0-0.0); Platelet Count 192 X 10*3/uL (140-440); RBC 3.42 X 10*6/uL (4.40-5.60); WBC 10.04 X 10*3/uL (4.50-10.00)
[2022-03-24 09:21] LABS: African American GFR (CKD) 71.6 (60.0-200.0); Anion Gap 7.2 mmol/L (10.00-18.00); BUN/Creat Ratio 44.55 Ratio (12.00-20.00); Calcium 7.9 mg/dL (8.7-10.3); Carbon Dioxide 23.8 mmol/L (20.0-27.5); Non-African American GFR(CKD) 61.8 (60.0-200.0); Potassium 3.6 mmol/L (3.5-5.5)
--- NOTE | 2022-03-24 10:51 | CDI ---
Documentation Clarification Form Date: 03/24/2022 10:27:22 AM From: Glendy Swartz RN CCDS Admit Date: 03/17/2022 01:52:00 PM Patient Name: Mejia Kearns Visit Number: [id number] Discharge Date: ATTENTION: The Clinical Documentation Specialists (CDI) and [facility] Coding Staff appreciate your assistance in clarifying documentation. Please respond to the clarification below the line at the bottom and electronically sign. The CDI & [facility] Coding staff will review the response and follow-up if needed. Please note: Queries are made part of the Legal Health Record. If you have any questions, please contact the author of this message via ITS. Dr. Rena myles, 2 pressure ulcer is documented by Nursing, 03/18, Nursing assessment. Based on this information and the findings below, is there an additional diagnosis that is clinically appropriate for this patient? History/Risk Factors: 81-year-old male presents to the ED with abdominal paint transferred from [facility]. Medical history: Type 2 DM, CAD, HTN, Afib and HLD. Clinical Indicators: Location: Coccyx Wound description: Stage 2 Treatment: Foam Sacrum Opitfoam gentle liquitrap bordered sacrum 9 x 9; Absorbent under pad check hourly; Turn 2Q when patient is in bed. Is there an additional diagnosis that is clinically appropriate for this patient? [ X ] Coccyx Pressure Ulcer Stage 2 [ ] Other condition, please specify [ ] Unable to determine Clinical Definitions: Stage 1 Pressure Ulcer: intact skin, non-blanching redness of local area Stage 2 Pressure Ulcer: Partial thickness, loss of dermis, pink wound bed Stage 3 Pressure Ulcer: Full thickness tissue loss Stage 4 Pressure Ulcer: Full thickness tissue loss with exposed bone, tendon, or muscle. Unstageable pressure ulcer: Full thickness tissue loss in which the base of the ulcer is covered by slough (yellow, christian, wells, green or brown) and/or eschar (christian, brown or black) in the wound bed. (Template Last Revised: October 2020) ELVIS
[2022-03-24 11:58] LABS: Glucose,Whole Blood 199 mg/dL (70-110)
--- NOTE | 2022-03-24 13:36 | P.PN ---
Subjective Progress Note Date: 03/24/22 Principal diagnosis: Abdominal pain, intra-abdominal fluid collection The patient is seen on rounds. He denies any abdominal pain. Complaining that the food is not to his liking. Denies any nausea or vomiting. Denies any abdominal pain. Objective - Vital Signs Vital signs: Vital Signs Temp 98.2 F 03/24/22 08:00 Pulse 67 03/24/22 08:00 Resp 18 03/24/22 08:00 BP 122/71 03/24/22 08:00 Pulse Ox 90 L 03/24/22 08:00 FiO2 Intake & Output 03/23/22 03/24/22 03/24/22 18:59 06:59 18:59 Intake Total 100 Output Total 825 675 Balance -917 -268 Intake: Intake, IV Titration 100 Amount Cefepime 2 gm In Sodium 100 Chloride 0.9% 100 ml @ 25 mls/hr IVPB Q12H [facility] Rx# :[id number] Output: Drainage 275 275 Right Lower Abdomen 125 Right Upper Abdomen 150 275 Urine 550 400 Other: Voiding Method Indwelling Catheter Diaper Indwelling Catheter # Bowel Movements 1 - Constitutional General appearance: Present: cooperative, no acute distress - Gastrointestinal Gastrointestinal Comment(s): Drains are draining some clearish brown fluid. Some proteinaceous material is seen but no obvious pus. General gastrointestinal: Present: normal bowel sounds, soft - Labs CBC & Chem 7: 03/24/22 05:49 03/24/22 05:49 Labs: Abnormal Lab Results - Last 24 Hours (Table) 03/23/22 03/23/22 03/23/22 Range/Units 11:46 11:46 16:55 WBC 10.84 H (4.50-10.00) X 10*3/uL RBC 3.39 L (4.40-5.60) X 10*6/uL Hgb 9.6 L (13.0-17.0) g/dL Hct 29.8 L (39.6-50.0) % MCHC (32.0-37.0) g/dL RDW 15.9 H (11.5-14.5) % Potassium 3.4 L (3.5-5.5) mmol/L Chloride 111 H (96-109) mmol/L Anion Gap (10.00-18.00) mmol/L BUN 56.8 H (9.0-27.0) mg/dL Est GFR (CKD-EPI)AfAm 57.9 L (60.0-200.0) Est GFR (CKD-EPI)NonAf 50.0 L (60.0-200.0) BUN/Creatinine Ratio 43.36 H (12.00-20.00) Ratio Glucose 125 H (70-110) mg/dL POC Glucose (mg/dL) 241 H (70-110) mg/dL Calcium 7.9 L (8.7-10.3) mg/dL 03/23/22 03/24/22 03/24/22 Range/Units 20:10 05:49 05:49 WBC 10.04 H (4.50-10.00) X 10*3/uL RBC 3.42 L (4.40-5.60) X 10*6/uL Hgb 9.4 L (13.0-17.0) g/dL Hct 30.4 L (39.6-50.0) % MCHC 30.9 L (32.0-37.0) g/dL RDW 16.0 H (11.5-14.5) % Potassium (3.5-5.5) mmol/L Chloride (96-109) mmol/L Anion Gap 7.20 L (10.00-18.00) mmol/L BUN 49.0 H (9.0-27.0) mg/dL Est GFR (CKD-EPI)AfAm (60.0-200.0) Est GFR (CKD-EPI)NonAf (60.0-200.0) BUN/Creatinine Ratio 44.55 H (12.00-20.00) Ratio Glucose 203 H (70-110) mg/dL POC Glucose (mg/dL) 237 H (70-110) mg/dL Calcium 7.9 L (8.7-10.3) mg/dL 03/24/22 03/24/22 Range/Units 07:02 11:57 WBC (4.50-10.00) X 10*3/uL RBC (4.40-5.60) X 10*6/uL Hgb (13.0-17.0) g/dL Hct (39.6-50.0) % MCHC (32.0-37.0) g/dL RDW (11.5-14.5) % Potassium (3.5-5.5) mmol/L Chloride (96-109) mmol/L Anion Gap (10.00-18.00) mmol/L BUN (9.0-27.0) mg/dL Est GFR (CKD-EPI)AfAm (60.0-200.0) Est GFR (CKD-EPI)NonAf (60.0-200.0) BUN/Creatinine Ratio (12.00-20.00) Ratio Glucose (70-110) mg/dL POC Glucose (mg/dL) 224 H 199 H (70-110) mg/dL Calcium (8.7-10.3) mg/dL Microbiology - Last 24 Hours (Table) 03/21/22 13:10 Gram Stain - Preliminary Aspirate Body Fluid Culture - Preliminary Assessment and Plan (1) Intra-abdominal fluid collection Current Visit: Yes Status: Acute Code(s): R18.8 - OTHER ASCITES SNOMED Code(s): 026619560 (2) Abdominal pain Current Visit: Yes Status: Acute Code(s): R10.9 - UNSPECIFIED ABDOMINAL PAIN SNOMED Code(s): 11525567 Plan: The percutaneous drainage from Thursday shows no growth at 48 hours. No bacteria was seen on gram stain. There may be some that colonized the existing fluid but the patient has no obvious inflammatory process in the abdomen. There is no evidence of diverticulitis, appendicitis or convincing evidence of cholecystitis. The patient's liver function tests have been completely normal the entire admission. He has a benign nonsurgical abdomen. Recommend antibiotics for the low-grade infection in the peritoneal fluid. Discussed the case with infectious disease, Dr. Ling
--- NOTE | 2022-03-24 13:46 | P.PN ---
Subjective Progress Note Date: 03/24/22 Principal diagnosis: Abdominal pain Follow up Patient was seen and examined. No evidence overnight. No nausea vomiting or abdominal pain. No chest pain reported. No fever or chills. During his arrest and throwing a small amount of bilious fluid. Nonbloody Objective - Vital Signs Vital signs: Vital Signs Temp 98.2 F 03/24/22 08:00 Pulse 67 03/24/22 08:00 Resp 18 03/24/22 08:00 BP 122/71 03/24/22 08:00 Pulse Ox 90 L 03/24/22 08:00 FiO2 Intake & Output 03/23/22 03/24/22 03/24/22 18:59 06:59 18:59 Intake Total 100 Output Total 825 675 Balance -576 -342 Intake: Intake, IV Titration 100 Amount Cefepime 2 gm In Sodium 100 Chloride 0.9% 100 ml @ 25 mls/hr IVPB Q12H [facility] Rx# :[id number] Output: Drainage 275 275 Right Lower Abdomen 125 Right Upper Abdomen 150 275 Urine 550 400 Other: Voiding Method Indwelling Catheter Diaper Indwelling Catheter # Bowel Movements 1 - Exam Gen: A&O x3-4 NAD Abd: drains intact. Draining bile. Soft. ND , NT BS + Lungs: CTAB Ht; NSR Skin Warm and dry - Labs CBC & Chem 7: 03/24/22 05:49 03/24/22 05:49 Labs: Abnormal Lab Results - Last 24 Hours (Table) 03/23/22 03/23/22 03/23/22 Range/Units 11:46 11:46 16:55 WBC 10.84 H (4.50-10.00) X 10*3/uL RBC 3.39 L (4.40-5.60) X 10*6/uL Hgb 9.6 L (13.0-17.0) g/dL Hct 29.8 L (39.6-50.0) % MCHC (32.0-37.0) g/dL RDW 15.9 H (11.5-14.5) % Potassium 3.4 L (3.5-5.5) mmol/L Chloride 111 H (96-109) mmol/L Anion Gap (10.00-18.00) mmol/L BUN 56.8 H (9.0-27.0) mg/dL Est GFR (CKD-EPI)AfAm 57.9 L (60.0-200.0) Est GFR (CKD-EPI)NonAf 50.0 L (60.0-200.0) BUN/Creatinine Ratio 43.36 H (12.00-20.00) Ratio Glucose 125 H (70-110) mg/dL POC Glucose (mg/dL) 241 H (70-110) mg/dL Calcium 7.9 L (8.7-10.3) mg/dL 03/23/22 03/24/22 03/24/22 Range/Units 20:10 05:49 05:49 WBC 10.04 H (4.50-10.00) X 10*3/uL RBC 3.42 L (4.40-5.60) X 10*6/uL Hgb 9.4 L (13.0-17.0) g/dL Hct 30.4 L (39.6-50.0) % MCHC 30.9 L (32.0-37.0) g/dL RDW 16.0 H (11.5-14.5) % Potassium (3.5-5.5) mmol/L Chloride (96-109) mmol/L Anion Gap 7.20 L (10.00-18.00) mmol/L BUN 49.0 H (9.0-27.0) mg/dL Est GFR (CKD-EPI)AfAm (60.0-200.0) Est GFR (CKD-EPI)NonAf (60.0-200.0) BUN/Creatinine Ratio 44.55 H (12.00-20.00) Ratio Glucose 203 H (70-110) mg/dL POC Glucose (mg/dL) 237 H (70-110) mg/dL Calcium 7.9 L (8.7-10.3) mg/dL 03/24/22 03/24/22 Range/Units 07:02 11:57 WBC (4.50-10.00) X 10*3/uL RBC (4.40-5.60) X 10*6/uL Hgb (13.0-17.0) g/dL Hct (39.6-50.0) % MCHC (32.0-37.0) g/dL RDW (11.5-14.5) % Potassium (3.5-5.5) mmol/L Chloride (96-109) mmol/L Anion Gap (10.00-18.00) mmol/L BUN (9.0-27.0) mg/dL Est GFR (CKD-EPI)AfAm (60.0-200.0) Est GFR (CKD-EPI)NonAf (60.0-200.0) BUN/Creatinine Ratio (12.00-20.00) Ratio Glucose (70-110) mg/dL POC Glucose (mg/dL) 224 H 199 H (70-110) mg/dL Calcium (8.7-10.3) mg/dL Microbiology - Last 24 Hours (Table) 03/21/22 13:10 Gram Stain - Preliminary Aspirate Body Fluid Culture - Preliminary Assessment and Plan Assessment: Assessment/plan: Right upper quadrant fluid collection No clinial signs of cholecystitis - s/p IR drain placement. Cultres positive for Klebsiella P .Michele - Sensitive - Recommend to change antibiotic to Cefepime 1gm daily for 10 days. ID consulted for antibiotic recs appreciate recommendations Flagyl was restarted by ID Type of an length of treatment for antibiotic is pending final anaerobic cultures from abdominal aspirate. 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 We'll continue monitoring of Entersto and diuretics - IVF, currently on Ringer lactate 50 mL per hour. recommended to continue for 1 more day. Stable - renal US without hydro Cont to monitor Chronic Anemia Stable - follow CBC -likely iron def or anemia of chronic disease . iron level low Ferrous sulfate 325 Hematuria, resolved - conitnue to monitor - continue with milligan - flomax DM 2 - SSI, Levemir HTN blood pressure is soft Cont to monitor CAD with hx of MS Paroxysmal. A fib - now with PPM, atrial paced - Lipitor - metoprolol , hold entresto and lasix due to agatha - tele - Cont eliquis 5mg bid for Afib DVT PPX: Home Eliquis Time with Patient: Greater than 30
[2022-03-24] MEDS: LACTATED RINGERS 1,000 ML IV SCH (15:37)
[2022-03-24 16:35] LABS: Glucose,Whole Blood 257 mg/dL (70-110)
[2022-03-24 20:37] LABS: Glucose,Whole Blood 292 mg/dL (70-110)
[2022-03-24] MEDS: ATORVASTATIN 80 MG TAB PO SCH (21:41)
[2022-03-24] MEDS: INSULIN DETEMIR (LEVEMIR) 100 UNIT/ML SYR SQ SCH (22:02)
--- NOTE | 2022-03-24 23:13 | P.PN ---
Subjective Progress Note Date: 03/24/22 Principal diagnosis: Intra-abdominal abscess Patient is a 81-year-old male presenting to the hospital with abdominal pain with initial concern for possible cholecystitis patient did have evidence of intra-abdominal abscess with a CT-guided drainage culture positive for Klebsiella with repeat CT today shows loculated fluid in the pelvis one of them has been drained and those cultures are currently pending. On today's evaluation that is 03/24/2022, the patient denies having any fever or chills, the patient, pain is currently controlled, the patient denies having any chest pain or shortness of breath or cough no nausea no vomiting and no diarrhea Objective - Vital Signs Vital signs: Vital Signs Temp 98.2 F 03/24/22 08:00 Pulse 67 03/24/22 08:00 Resp 18 03/24/22 08:00 BP 122/71 03/24/22 08:00 Pulse Ox 90 L 03/24/22 08:00 FiO2 Intake & Output 03/23/22 03/24/22 03/24/22 18:59 06:59 18:59 Intake Total 100 Output Total 825 675 Balance -988 -826 Intake: Intake, IV Titration 100 Amount Cefepime 2 gm In Sodium 100 Chloride 0.9% 100 ml @ 25 mls/hr IVPB Q12H [facility] Rx# :[id number] Output: Drainage 275 275 Right Lower Abdomen 125 Right Upper Abdomen 150 275 Urine 550 400 Other: Voiding Method Indwelling Catheter Diaper Indwelling Catheter # Bowel Movements 1 - Exam GENERAL DESCRIPTION: An elderly male lying in bed in no distress RESPIRATORY SYSTEM: Unlabored breathing , decreased breath sounds at bases HEART: S1 S2 regular rate and rhythm , ABDOMEN: Soft , no tenderness EXTREMITIES: No edema feet - Labs CBC & Chem 7: 03/24/22 05:49 03/24/22 05:49 Labs: Abnormal Lab Results - Last 24 Hours (Table) 03/23/22 03/23/22 03/23/22 Range/Units 11:46 11:46 16:55 WBC 10.84 H (4.50-10.00) X 10*3/uL RBC 3.39 L (4.40-5.60) X 10*6/uL Hgb 9.6 L (13.0-17.0) g/dL Hct 29.8 L (39.6-50.0) % MCHC (32.0-37.0) g/dL RDW 15.9 H (11.5-14.5) % Potassium 3.4 L (3.5-5.5) mmol/L Chloride 111 H (96-109) mmol/L Anion Gap (10.00-18.00) mmol/L BUN 56.8 H (9.0-27.0) mg/dL Est GFR (CKD-EPI)AfAm 57.9 L (60.0-200.0) Est GFR (CKD-EPI)NonAf 50.0 L (60.0-200.0) BUN/Creatinine Ratio 43.36 H (12.00-20.00) Ratio Glucose 125 H (70-110) mg/dL POC Glucose (mg/dL) 241 H (70-110) mg/dL Calcium 7.9 L (8.7-10.3) mg/dL 03/23/22 03/24/22 03/24/22 Range/Units 20:10 05:49 05:49 WBC 10.04 H (4.50-10.00) X 10*3/uL RBC 3.42 L (4.40-5.60) X 10*6/uL Hgb 9.4 L (13.0-17.0) g/dL Hct 30.4 L (39.6-50.0) % MCHC 30.9 L (32.0-37.0) g/dL RDW 16.0 H (11.5-14.5) % Potassium (3.5-5.5) mmol/L Chloride (96-109) mmol/L Anion Gap 7.20 L (10.00-18.00) mmol/L BUN 49.0 H (9.0-27.0) mg/dL Est GFR (CKD-EPI)AfAm (60.0-200.0) Est GFR (CKD-EPI)NonAf (60.0-200.0) BUN/Creatinine Ratio 44.55 H (12.00-20.00) Ratio Glucose 203 H (70-110) mg/dL POC Glucose (mg/dL) 237 H (70-110) mg/dL Calcium 7.9 L (8.7-10.3) mg/dL 03/24/22 03/24/22 Range/Units 07:02 11:57 WBC (4.50-10.00) X 10*3/uL RBC (4.40-5.60) X 10*6/uL Hgb (13.0-17.0) g/dL Hct (39.6-50.0) % MCHC (32.0-37.0) g/dL RDW (11.5-14.5) % Potassium (3.5-5.5) mmol/L Chloride (96-109) mmol/L Anion Gap (10.00-18.00) mmol/L BUN (9.0-27.0) mg/dL Est GFR (CKD-EPI)AfAm (60.0-200.0) Est GFR (CKD-EPI)NonAf (60.0-200.0) BUN/Creatinine Ratio (12.00-20.00) Ratio Glucose (70-110) mg/dL POC Glucose (mg/dL) 224 H 199 H (70-110) mg/dL Calcium (8.7-10.3) mg/dL Microbiology - Last 24 Hours (Table) 03/21/22 13:10 Gram Stain - Preliminary Aspirate Body Fluid Culture - Preliminary Assessment and Plan (1) Intra-abdominal fluid collection Current Visit: Yes Status: Acute Code(s): R18.8 - OTHER ASCITES SNOMED Code(s): 083987071 Plan: 1patient presented to hospital abdominal pain in this patient did have abnormal CT followed by ultrasound suggestive of cholecystitis and fluid collection around the gallbladder area in this patient who is status post 2 different drainage procedure done by IR, the fluid collection in the right upper quadrant could correspond to the gallbladder however no clear explanation for the fluid in the lower abdominal area which has been drained on 03/21/2020 with the sensiti vities and cultures currently pending. 2patient CT was reviewed with radiologist and no obvious focus for these abscesses were identified discussed with the surgeon on the phone recommending no surgical intervention 3patient to continue with cefepime and Flagyl. Will recommend obtaining a PICC line for outpatient IV antibiotic Time with Patient: Less than 30
[2022-03-25] MEDS: CEFEPIME 2 GM in SODIUM CHLORIDE 0.9% 100 ML IVPB SCH ×2 (03:25→15:03)
[2022-03-25] MEDS: LEVOTHYROXINE 75 MCG TAB PO SCH (05:49)
[2022-03-25 06:42] LABS: Glucose,Whole Blood 221 mg/dL (70-110)
[2022-03-25] MEDS: FERROUS SULFATE 325 MG TAB PO SCH ×2 (07:29→18:50)
[2022-03-25] MEDS: TAMSULOSIN 0.4 MG CAP.ER.24H PO SCH (07:30)
[2022-03-25] MEDS: APIXABAN 5 MG TAB PO SCH ×2 (07:30→20:33)
[2022-03-25] MEDS: FAMOTIDINE 20 MG TAB PO SCH (07:30)
[2022-03-25] MEDS: FUROSEMIDE 20 MG TAB PO SCH (07:30)
[2022-03-25] MEDS: metroNIDAZOLE 500 MG TAB PO SCH ×3 (07:30→20:47)
[2022-03-25] MEDS: LACTOBACILLUS ACIDOPH & BULGAR 1 EACH PACKET PO SCH ×2 (07:30→20:45)
[2022-03-25] MEDS: METOPROLOL TARTRATE 12.5 MG TAB PO SCH ×2 (07:30→20:45)
[2022-03-25] MEDS: INSULIN ASPART (NovoLOG) 100 UNIT/ML VIAL SQ SCH ×4 (07:31→22:48)
[2022-03-25] MEDS: MORPHINE SULFATE 4 MG/ML SYRINGE IV PRN (10:23)
[2022-03-25 11:12] LABS: Glucose,Whole Blood 222 mg/dL (70-110)
[2022-03-25] MEDS: LACTATED RINGERS 1,000 ML IV SCH (11:26)
[2022-03-25 16:15] LABS: Glucose,Whole Blood 313 mg/dL (70-110)
--- NOTE | 2022-03-25 18:45 | P.PN ---
Subjective Progress Note Date: 03/25/22 Principal diagnosis: Abdominal pain, intra-abdominal fluid collection No new complaints Objective - Vital Signs Vital signs: Vital Signs Temp 97.6 F 03/25/22 14:00 Pulse 66 03/25/22 14:00 Resp 17 03/25/22 14:00 BP 121/67 03/25/22 14:00 Pulse Ox 98 03/25/22 15:41 FiO2 Intake & Output 03/24/22 03/25/22 03/25/22 18:59 06:59 18:59 Intake Total 590 600 Output Total 450 1375 450 Balance -450 -785 150 Weight 100.698 kg Intake: Oral 590 600 Output: Drainage 250 475 150 Right Lower Abdomen 250 450 Right Upper Abdomen 25 150 Urine 200 900 300 Other: Voiding Method Diaper Indwelling Catheter # Bowel Movements 1 - Constitutional General appearance: Present: cooperative, no acute distress - Labs CBC & Chem 7: 03/24/22 05:49 03/24/22 05:49 Labs: Abnormal Lab Results - Last 24 Hours (Table) 03/24/22 03/25/22 03/25/22 Range/Units 20:36 06:40 11:10 POC Glucose (mg/dL) 292 H 221 H 222 H (70-110) mg/dL 03/25/22 Range/Units 16:14 POC Glucose (mg/dL) 313 H (70-110) mg/dL Microbiology - Last 24 Hours (Table) 03/21/22 13:10 Anaerobic Culture - Preliminary Aspirate 03/21/22 13:10 Gram Stain - Preliminary Aspirate Body Fluid Culture - Preliminary Assessment and Plan (1) Intra-abdominal fluid collection Current Visit: Yes Status: Acute Code(s): R18.8 - OTHER ASCITES SNOMED Code(s): 749074788 (2) Abdominal pain Current Visit: Yes Status: Acute Code(s): R10.9 - UNSPECIFIED ABDOMINAL PAIN SNOMED Code(s): 13914832 Plan: Fridays cultures have shown no growth. The patient continues to have a rather benign abdomen. Recommend antibiotic therapy, which can be done as out patient. I will see him next week in the office for drain removal
--- NOTE | 2022-03-25 19:29 | P.PN ---
Subjective Progress Note Date: 03/25/22 Patient is an 81-year-old male with A. fib on Eliquis, hypertension, hyperlipidemia, type II DM, CAD, and hypothyroidism who was transferred to the emergency room from [facility] for complaints of abdominal pain. He underwent a CT abdomen and pelvis at the transferring facility which revealed mild gallbladder wall thickening with cholelithiasis along with a well-circumscribed lobulated peripherally enhancing collection in the anterior aspect of the abdomen extending inferiorly into the pelvis 3.1 x 7.9 cm, possibly due to gallbladder perforation or infectious/inflammatory colitis. Laboratory evaluation was remarkable for platelet count of 139, BUN 36, creatin ine 1.4, unremarkable LFTs, lactic acid 2.0 from the transferring facility which improved to 1.2 upon repeat. He was seen by surgery. He underwent gallbladder ultrasound showed cholelithiasis concern for acute cholecystitis as well as a complex right abdomen fluid collection. Surgery recommended drain placement IR which was completed on 03/17/22. Patient seen and examined at bedside. He states that he has been feeling a little bit stronger every day. He is tolerating a diet. Pain is well co ntrolled. Last bowel movement was yesterday. present at bedside and all questions answered. They're aware that plan is for PICC line and then discharged to rehab facility with close outpatient follow-up with infectious disease and surgery. General: nontoxic, no distress, appears at stated age Derm: warm, dry Head: atraumatic, normocephalic, symmetric Eyes: EOMI, no lid lag, anicteric sclera Mouth: no lip lesion, mucus membranes moist Cardiovascular: S1S2 reg, no murmur, positive posterior tibial pulse bilateral, Lungs: CTA bilateral, no rhonchi, no rales , no accessory muscle use Abdominal: soft, nontender to palpation, no guarding, no appreciable organomegaly, [address] with serous fluid Ext: no gross muscle atrophy, no edema, no contractures Neuro: CN II-XI grossly intact, no focal neuro deficits Psych: Alert, oriented, appropriate affect Assessment/Plan: Klebsiella Right upper quadrant infected fluid collection Pelvic fluid collection suspect secondary to biliary source - follow up outpatient with surgery in office next week for drain removal - s/p IR drain placement, await cultures - ID recs: cefepime/flagyl, PICC line - surgery recs Aneima, possible acute blood loss - follow CBC - iron studies with chronic disease Hematuria, improving - conitnue to monitor - continue with milligan - flomax DM 2 - SSI, Levemir HTN CAD with hx of DC P. A fib - Lipitor - metoprolol , hold entresto and lasix - tele - eliquis AGATHA, resolved Hypotension, resolved Objective - Vital Signs Vital signs: Vital Signs Temp 97.6 F 03/25/22 14:00 Pulse 66 03/25/22 14:00 Resp 17 03/25/22 14:00 BP 121/67 03/25/22 14:00 Pulse Ox 98 03/25/22 15:41 FiO2 Intake & Output 03/25/22 03/25/22 03/26/22 06:59 18:59 06:59 Intake Total 590 600 Output Total 1375 450 Balance -785 150 Intake: Oral 590 600 Output: Drainage 475 150 Right Lower Abdomen 450 Right Upper Abdomen 25 150 Urine 900 300 Other: Voiding Method Diaper Indwelling Catheter - Labs CBC & Chem 7: 03/24/22 05:49 03/24/22 05:49 Labs: Abnormal Lab Results - Last 24 Hours (Table) 03/24/22 03/25/22 03/25/22 Range/Units 20:36 06:40 11:10 POC Glucose (mg/dL) 292 H 221 H 222 H (70-110) mg/dL 03/25/22 Range/Units 16:14 POC Glucose (mg/dL) 313 H (70-110) mg/dL Microbiology - Last 24 Hours (Table) 03/21/22 13:10 Gram Stain - Final Aspirate Body Fluid Culture - Final 03/21/22 13:10 Anaerobic Culture - Preliminary Aspirate
[2022-03-25 19:55] LABS: Glucose,Whole Blood 329 mg/dL (70-110)
[2022-03-25] MEDS: ATORVASTATIN 80 MG TAB PO SCH (20:45)
[2022-03-25] MEDS: SACUBITRIL/VALSARTAN 24 MG-26 MG TABLET PO SCH (20:45)
[2022-03-25] MEDS ORDERED: INSULIN DETEMIR (LEVEMIR) 100 UNIT/ML SYR SQ SCH ×2 (21:00)
[2022-03-25 22:35] LABS: Glucose,Whole Blood 336 mg/dL (70-110)
[2022-03-26] MEDS: CEFEPIME 2 GM in SODIUM CHLORIDE 0.9% 100 ML IVPB SCH ×3 (03:19→17:44)
[2022-03-26] MEDS: LACTATED RINGERS 1,000 ML IV SCH (03:19)
[2022-03-26] MEDS: LEVOTHYROXINE 75 MCG TAB PO SCH (06:05)
[2022-03-26 06:48] LABS: Glucose,Whole Blood 205 mg/dL (70-110)
[2022-03-26 07:34] LABS: HCT 30.1 % (39.0-53.0); Hypochromasia Slight; MCH 29.1 pg (25.0-35.0); MCHC 31.8 g/dL (31.0-37.0); MCV 91.5 fL (80.0-100.0); Mean Platelet Volume 8.7; Platelet Count 212 k/uL (150-450); RBC 3.28 m/uL (4.30-5.90); RDW 15.2 % (11.5-15.5)
[2022-03-26 07:51] LABS: African American GFR (CKD) 90 (>60 ml/min/1.73 sqM); Anion Gap 3 mmol/L; Blood Urea Nitrogen 33 mg/dL (9-20); Calcium 7.7 mg/dL (8.4-10.2); Carbon Dioxide 28 mmol/L (22-30); Chloride 106 mmol/L (98-107); Glucose 191 mg/dL (74-99); Non-African American GFR(CKD) 78 (>60 ml/min/1.73 sqM); Potassium 3.8 mmol/L (3.5-5.1); Sodium 137 mmol/L (137-145)
[2022-03-26 07:58] LABS: HGB 9.5 gm/dL (13.0-17.5)
[2022-03-26] MEDS: FAMOTIDINE 20 MG TAB PO SCH (08:17)
[2022-03-26] MEDS: FUROSEMIDE 20 MG TAB PO SCH (08:17)
[2022-03-26] MEDS: metroNIDAZOLE 500 MG TAB PO SCH ×3 (08:17→21:12)
[2022-03-26] MEDS: APIXABAN 5 MG TAB PO SCH ×2 (08:17→21:13)
[2022-03-26] MEDS: FERROUS SULFATE 325 MG TAB PO SCH ×2 (08:17→17:44)
[2022-03-26] MEDS: INSULIN ASPART (NovoLOG) 100 UNIT/ML VIAL SQ SCH ×4 (08:17→21:13)
[2022-03-26] MEDS: TAMSULOSIN 0.4 MG CAP.ER.24H PO SCH (08:17)
[2022-03-26] MEDS: METOPROLOL TARTRATE 12.5 MG TAB PO SCH ×2 (08:17→21:12)
[2022-03-26] MEDS: SACUBITRIL/VALSARTAN 24 MG-26 MG TABLET PO SCH ×2 (08:18→21:12)
[2022-03-26] MEDS: LACTOBACILLUS ACIDOPH & BULGAR 1 EACH PACKET PO SCH ×2 (08:18→21:13)
[2022-03-26 11:03] LABS: Glucose,Whole Blood 219 mg/dL (70-110)
[2022-03-26] MEDS: FUROSEMIDE 10 MG/ML 4 ML VIAL IV SCH ×2 (11:38→21:13)
--- NOTE | 2022-03-26 13:10 | P.PN ---
Subjective Progress Note Date: 03/25/22 Principal diagnosis: Intra-abdominal abscess Patient is a 81-year-old male presenting to the hospital with abdominal pain with initial concern for possible cholecystitis patient did have evidence of intra-abdominal abscess with a CT-guided drainage culture positive for Klebsiella with repeat CT today shows loculated fluid in the pelvis one of them has been drained and those cultures are currently pending. On today's evaluation that is 03/25/2022, the patient Continues to be afebrile, the patient abdominal pain is currently controlled, the patient denies having any chest pain or shortness of breath or cough no nausea vomiting no diarrhea Objective - Vital Signs Vital signs: Vital Signs Temp 97.4 F L 03/25/22 08:00 Pulse 68 03/25/22 08:00 Resp 17 03/25/22 08:00 BP 132/70 03/25/22 08:00 Pulse Ox 97 03/25/22 08:06 FiO2 Intake & Output 03/24/22 03/25/22 03/25/22 18:59 06:59 18:59 Intake Total 590 120 Output Total 450 1375 Balance -450 -785 120 Weight 100.698 kg Intake: Oral 590 120 Output: Drainage 250 475 Right Lower Abdomen 250 450 Right Upper Abdomen 25 Urine 200 900 Other: Voiding Method Diaper Indwelling Catheter # Bowel Movements 1 - Exam GENERAL DESCRIPTION: An elderly male lying in bed in no distress RESPIRATORY SYSTEM: Unlabored breathing , decreased breath sounds at bases HEART: S1 S2 regular rate and rhythm , ABDOMEN: Soft , no tenderness EXTREMITIES: No edema feet - Labs CBC & Chem 7: 03/26/22 06:51 03/26/22 06:51 Labs: Abnormal Lab Results - Last 24 Hours (Table) 03/24/22 03/24/22 03/24/22 Range/Units 11:57 16:34 20:36 POC Glucose (mg/dL) 199 H 257 H 292 H (70-110) mg/dL 03/25/22 Range/Units 06:40 POC Glucose (mg/dL) 221 H (70-110) mg/dL Microbiology - Last 24 Hours (Table) 03/21/22 13:10 Anaerobic Culture - Preliminary Aspirate 03/21/22 13:10 Gram Stain - Preliminary Aspirate Body Fluid Culture - Preliminary Assessment and Plan (1) Intra-abdominal fluid collection Current Visit: Yes Status: Acute Code(s): R18.8 - OTHER ASCITES SNOMED Code(s): 555494047 Plan: 1patient presented to hospital abdominal pain in this patient did have abnormal CT followed by ultrasound suggestive of cholecystitis and fluid collection around the gallbladder area in this patient who is status post 2 different drainage procedure done by IR, the fluid collection in the right upper quadrant could correspond to the gallbladder however no clear explanation for the fluid in the lower abdominal area which has been drained on 03/21/2020 with the sensitivities and cultures currently pending. 2patient CT was reviewed with radiologist and no obvious focus for these abscesses were identified discussed with the surgeon on the phone recommending no surgical intervention 3patient has shown clinical improvement with repeat cultures so far pending continue with cefepime and Flagyl may benefit from a short course of IV antibiot ic on discharge with repeat CAT scan in 2 weeks Time with Patient: Less than 30
[2022-03-26] MEDS ORDERED: LIDOCAINE 1% INJ 10MG/ML (5 ML VIAL-PF) SQ ONE (13:14)
--- NOTE | 2022-03-26 13:36 | IR ---
PICC LINE PLACEMENT: HISTORY: Infection requiring long-term antibiotic therapy PROCEDURE: Ultrasound and fluoroscopic guidance of PICC line placement. COMPLICATIONS: None ANESTHESIA: 1. 1% Lidocaine locally. FINDINGS/TECHNIQUE: The procedure was explained to the patient. The risks, complications, benefits and alternatives were discussed and any questions were answered. Informed consent was obtained. The patient was placed supine on the fluoroscopic table and prepped and draped in the usual sterile fash ion. Utilizing a 21 gauge needle and sonographic and fluoroscopic guidance, access in the right bas ilic vein was achieved and there is placement of a 0.018 guidewire. The vein is patent. A 4-F sheat h was placed over the guidewire. The guidewire and dilator were removed and a 4-F. PICC line was cielo antonio through the sheath with the tip at the level of the SVC. The sheath was removed, the catheter wa s flushed and sutured into position. The patient was stable throughout the procedure and remained st able upon discharge from the Department of Radiology. The vein puncture was patent under ultrasound. A wells scale image was obtained to document patency of the vein punctured. All elements of the maximal barrier technique were utilized. FLUOROSCOPY TIME: 0.4 minutes and 1 image was submitted IMPRESSION: Successful PICC line placement under ultrasound and fluoroscopic guidance.
--- NOTE | 2022-03-26 16:31 | P.PN ---
Subjective Progress Note Date: 03/26/22 Principal diagnosis: Intra-abdominal abscess Patient is a 81-year-old male presenting to the hospital with abdominal pain with initial concern for possible cholecystitis patient did have evidence of intra-abdominal abscess with a CT-guided drainage culture positive for Klebsiella with repeat CT today shows loculated fluid in the pelvis one of them has been drained and those cultures are so far negative. On today's evaluation that is 03/26/2022, the patient denies any fever or any chills, the patient denies any worsening abdominal pain , the patient denies chest pain or shortness of breath or cough no nausea vomiting no diarrhea, no new symptoms Objective - Vital Signs Vital signs: Vital Signs Temp 97.5 F L 03/26/22 07:57 Pulse 58 L 03/26/22 07:57 Resp 17 03/26/22 07:57 BP 120/62 03/26/22 07:57 Pulse Ox 97 03/26/22 07:57 FiO2 Intake & Output 03/25/22 03/26/22 03/26/22 18:59 06:59 18:59 Intake Total 600 200 Output Total 450 525 100 Balance 150 -325 -100 Intake: Oral 600 200 Output: Drainage 150 325 100 Right Upper Abdomen 150 325 100 Urine 300 200 Other: Voiding Method Diaper Indwelling Catheter Indwelling Catheter - Exam GENERAL DESCRIPTION: An elderly male lying in bed in no distress RESPIRATORY SYSTEM: Unlabored breathing , decreased breath sounds at bases HEART: S1 S2 regular rate and rhythm , ABDOMEN: Soft , no tenderness EXTREMITIES: No edema feet - Labs CBC & Chem 7: 03/26/22 06:51 03/26/22 06:51 Labs: Abnormal Lab Results - Last 24 Hours (Table) 03/25/22 03/25/22 03/25/22 Range/Units 16:14 19:54 22:33 RBC (4.30-5.90) m/uL Hgb (13.0-17.5) gm/dL Hct (39.0-53.0) % BUN (9-20) mg/dL Glucose (74-99) mg/dL POC Glucose (mg/dL) 313 H 329 H 336 H (70-110) mg/dL Calcium (8.4-10.2) mg/dL 03/26/22 03/26/22 03/26/22 Range/Units 06:47 06:51 06:51 RBC 3.28 L (4.30-5.90) m/uL Hgb 9.5 L D (13.0-17.5) gm/dL Hct 30.1 L (39.0-53.0) % BUN 33 H (9-20) mg/dL Glucose 191 H (74-99) mg/dL POC Glucose (mg/dL) 205 H (70-110) mg/dL Calcium 7.7 L (8.4-10.2) mg/dL 03/26/22 Range/Units 11:02 RBC (4.30-5.90) m/uL Hgb (13.0-17.5) gm/dL Hct (39.0-53.0) % BUN (9-20) mg/dL Glucose (74-99) mg/dL POC Glucose (mg/dL) 219 H (70-110) mg/dL Calcium (8.4-10.2) mg/dL Microbiology - Last 24 Hours (Table) 03/21/22 13:10 Anaerobic Culture - Final Aspirate 03/21/22 13:10 Gram Stain - Final Aspirate Body Fluid Culture - Final Assessment and Plan (1) Intra-abdominal fluid collection Current Visit: Yes Status: Acute Code(s): R18.8 - OTHER ASCITES SNOMED Code(s): 628745650 Plan: 1patient presented to hospital abdominal pain in this patient did have abnormal CT followed by ultrasound suggestive of cholecystitis and fluid collection aroun d the gallbladder area in this patient who is status post 2 different drainage procedure done by IR, the fluid collection in the right upper quadrant could correspond to the gallbladder however no clear explanation for the fluid in the lower abdominal area which has been drained on 03/21/2020 with the sensitivities and cultures currently pending. 2patient CT was reviewed with radiologist and no obvious focus for these abscesses were identified discussed with the surgeon on the phone recommending no surgical intervention 3patient has shown clinical improvement with repeat cultures has been negative so far initial culture with Klebsiella which is sensitive to ciprofloxacin and option is oral Cipro 500 mg twice a day along with the Flagyl 500 mg 3 times a day for 2 weeks and close outpatient follow-up on this was discussed in detail with the medical team Time with Patient: Less than 30
[2022-03-26 16:44] LABS: Glucose,Whole Blood 213 mg/dL (70-110)
--- NOTE | 2022-03-26 17:58 | P.PN ---
Subjective Progress Note Date: 03/26/22 (delayed charting seen at 1030) Patient is an 81-year-old male with A. fib on Eliquis, hypertension, hyperlipidemia, type II DM, CAD, and hypothyroidism who was transferred to the emergency room from [facility] for complaints of abdominal pain. He underwent a CT abdomen and pelvis at the transferring facility which revealed mild gallbladder wall thickening with cholelithiasis along with a well- circumscribed lobulated peripherally enhancing collection in the anterior aspect of the abdomen extending inferiorly into the pelvis 3.1 x 7.9 cm, possibly due to gallbladder perforation or infectious/inflammatory colitis. Laboratory evaluation was remarkable for platelet count of 139, BUN 36, creatinine 1.4, unremarkable LFTs, lactic acid 2.0 from the transferring facility which improved to 1.2 upon repeat. He was seen by surgery. He underwent gallbladder ultrasound showed cholelithiasis concern for acute cholecystitis as well as a complex right abdomen fluid collection. Surgery recommended drain placement IR which was completed on 03/17/22, he had a CT abd and pelvis on03/20 which showed contracted gallbladder with wall thickening, 2 loculated fluid colleection in t he pelivs, ascitie, and decreased size of right ower quadrant fluid collection. He had a second drain placed in the pelvic fludi collection on 03/21 the fluid from this collection was sterile. He conitnued to improved and surgery signed off. Patient seen and examined at bedside. Doing okay, no complaints, no nausea, no vomiting, abdominal pain is mild. General: nontoxic, no distress, appears at stated age Derm: warm, dry Head: atraumatic, normocephalic, symmetric Eyes: EOMI, no lid lag, anicteric sclera Mouth: no lip lesion, mucus membranes moist Cardiovascular: S1S2 reg, no murmur, positive posterior tibial pulse bilateral, Lungs: CTA bilateral, no rhonchi, no rales , no accessory muscle use Abdominal: soft, nontender to palpation, no guarding, no appreciable organom egaly, [address] with serous fluid Ext: no gross muscle atrophy, no edema, no contractures Neuro: CN II-XI grossly intact, no focal neuro deficits Psych: Alert, oriented, appropriate affect Assessment/Plan: Klebsiella Right upper quadrant infected fluid collection Pelvic fluid collection- sterile Suspect secondary to biliary source - follow up outpatient with surgery in office next week for drain removal - s/p IR drain placement, await cultures - ID recs: PICC line had been placed on 03/26 prior to recommendation of lui and arya, will remove PICC line prior to discharge - surgery recs Aneima, possible acute blood loss - follow CBC - iron studies with chronic disease Hematuria, improving Chronic retention and milligan present on arrival - conitnue to monitor - continue with milligan - flomax - [place]. DM 2 - SSI, Levemir, add fixed dose - follow BS HTN CAD with hx of [place] P. A fib - Lipitor - metoprolol - entresto resumed - Lasix IV X 2 - tele - eliquis AGATHA, resolved Hypotension, resolved Objective - Vital Signs Vital signs: Vital Signs Temp 96.5 F L 03/26/22 14:00 Pulse 64 03/26/22 14:00 Resp 17 03/26/22 14:00 BP 94/60 03/26/22 14:00 Pulse Ox 98 03/26/22 14:00 FiO2 Intake & Output 03/25/22 03/26/22 03/26/22 18:59 06:59 18:59 Intake Total 600 200 Output Total 426 480 1405 Balance 150 -325 -1650 Intake: Oral 600 200 Output: Drainage 150 325 100 Right Upper Abdomen 150 325 100 Urine 446 800 6750 Other: Voiding Method Diaper Indwelling Catheter Indwelling Catheter - Labs CBC & Chem 7: 03/26/22 06:51 03/26/22 06:51 Labs: Abnormal Lab Results - Last 24 Hours (Table) 03/25/22 03/25/22 03/26/22 Range/Units 19:54 22:33 06:47 RBC (4.30-5.90) m/uL Hgb (13.0-17.5) gm/dL Hct (39.0-53.0) % BUN (9-20) mg/dL Glucose (74-99) mg/dL POC Glucose (mg/dL) 329 H 336 H 205 H (70-110) mg/dL Calcium (8.4-10.2) mg/dL 03/26/22 03/26/22 03/26/22 Range/Units 06:51 06:51 11:02 RBC 3.28 L (4.30-5.90) m/uL Hgb 9.5 L D (13.0-17.5) gm/dL Hct 30.1 L (39.0-53.0) % BUN 33 H (9-20) mg/dL Glucose 191 H (74-99) mg/dL POC Glucose (mg/dL) 219 H (70-110) mg/dL Calcium 7.7 L (8.4-10.2) mg/dL 03/26/22 Range/Units 16:42 RBC (4.30-5.90) m/uL Hgb (13.0-17.5) gm/dL Hct (39.0-53.0) % BUN (9-20) mg/dL Glucose (74-99) mg/dL POC Glucose (mg/dL) 213 H (70-110) mg/dL Calcium (8.4-10.2) mg/dL Microbiology - Last 24 Hours (Table) 03/21/22 13:10 Anaerobic Culture - Final Aspirate 03/21/22 13:10 Gram Stain - Final Aspirate Body Fluid Culture - Final
[2022-03-26 21:04] LABS: Glucose,Whole Blood 248 mg/dL (70-110)
[2022-03-26] MEDS: INSULIN DETEMIR (LEVEMIR) 100 UNIT/ML SYR SQ SCH (21:13)
[2022-03-27] MEDS: LACTATED RINGERS 1,000 ML IV SCH ×2 (03:24→18:12)
[2022-03-27] MEDS: CEFEPIME 2 GM in SODIUM CHLORIDE 0.9% 100 ML IVPB SCH ×3 (03:50→18:12)
[2022-03-27] MEDS: ACETAMINOPHEN TAB 325 MG TAB PO PRN (03:53)
[2022-03-27] MEDS: LEVOTHYROXINE 75 MCG TAB PO SCH (05:33)
[2022-03-27 07:12] LABS: Glucose,Whole Blood 124 mg/dL (70-110)
[2022-03-27 07:14] LABS: HGB 10.1 gm/dL (13.0-17.5); MCHC 32.5 g/dL (31.0-37.0); MCV 89.1 fL (80.0-100.0); Mean Platelet Volume 9.1; Platelet Count 235 k/uL (150-450); RBC 3.48 m/uL (4.30-5.90); RDW 15.1 % (11.5-15.5); WBC 8.4 k/uL (3.8-10.6)
[2022-03-27 07:34] LABS: ALT 9 U/L (4-49); AST 24 U/L (17-59); African American GFR (CKD) >90 (>60 ml/min/1.73 sqM); Albumin 1.8 g/dL (3.5-5.0); Albumin/Globulin Ratio 0.6; Alkaline Phosphatase 91 U/L (38-126); Anion Gap 6 mmol/L; Blood Urea Nitrogen 33 mg/dL (9-20); Calcium 7.7 mg/dL (8.4-10.2); Carbon Dioxide 26 mmol/L (22-30); Chloride 102 mmol/L (98-107); Globulin 2.9 g/dL; Glucose 131 mg/dL (74-99); Non-African American GFR(CKD) 82 (>60 ml/min/1.73 sqM); Potassium 3.4 mmol/L (3.5-5.1); Sodium 134 mmol/L (137-145); Total Bilirubin 0.4 mg/dL (0.2-1.3); Total Protein 4.7 g/dL (6.3-8.2)
[2022-03-27] MEDS ORDERED: POTASSIUM CHLORIDE ER 20 MEQ TAB.ER PO STA (08:11)
[2022-03-27] MEDS: LACTOBACILLUS ACIDOPH & BULGAR 1 EACH PACKET PO SCH ×2 (08:51→21:30)
[2022-03-27] MEDS: FUROSEMIDE 10 MG/ML 4 ML VIAL IV SCH ×2 (08:51→21:32)
[2022-03-27] MEDS: FERROUS SULFATE 325 MG TAB PO SCH ×2 (08:51→17:24)
[2022-03-27] MEDS: METOPROLOL TARTRATE 12.5 MG TAB PO SCH ×2 (08:51→21:30)
[2022-03-27] MEDS: metroNIDAZOLE 500 MG TAB PO SCH ×3 (08:51→21:30)
[2022-03-27] MEDS: INSULIN ASPART (NovoLOG) 100 UNIT/ML VIAL SQ SCH ×7 (08:52→21:30)
[2022-03-27] MEDS: APIXABAN 5 MG TAB PO SCH ×2 (08:52→21:31)
[2022-03-27] MEDS: TAMSULOSIN 0.4 MG CAP.ER.24H PO SCH (08:52)
[2022-03-27] MEDS: FAMOTIDINE 20 MG TAB PO SCH (08:52)
[2022-03-27] MEDS: SACUBITRIL/VALSARTAN 24 MG-26 MG TABLET PO SCH ×2 (08:55→21:30)
[2022-03-27 11:34] LABS: Glucose,Whole Blood 164 mg/dL (70-110)
--- NOTE | 2022-03-27 14:49 | P.PN ---
Subjective Progress Note Date: 03/27/22 (delayed charting seen at 1120 ) Patient is an 81-year-old male with A. fib on Eliquis, hypertension, hyperlipidemia, type II DM, CAD, and hypothyroidism who was transferred to the emergency room from [facility] for complaints of abdominal pain. He underwent a CT abdomen and pelvis at the transferring facility which revealed mild gallbladder wall thickening with cholelithiasis along with a well- circumscribed lobulated peripherally enhancing collection in the anterior aspect of the abdomen extending inferiorly into the pelvis 3.1 x 7.9 cm, possibly due to gallbladder perforation or infectious/inflammatory colitis. Laboratory evaluation was remarkable for platelet count of 139, BUN 36, creatinine 1.4, unremarkable LFTs, lactic acid 2.0 from the transferring facility which improved to 1.2 upon repeat. He was seen by surgery. He underwent gallbladder ultrasound showed cholelithiasis concern for acute cholecystitis as well as a complex right abdomen fluid collection. Surgery recommended drain placement IR which was completed on 03/17/22, he had a CT abd and pelvis on03/20 which showed contracted gallbladder with wall thickening, 2 loculated fluid colleection in the pelivs, ascitie, and decreased size of right ower quadrant fluid collection. He had a second drain placed in the pelvic fludi collection on 03/21 the fluid from this collection was sterile. He continued to improved and surgery signed off. Patient seen and examined at bedside. He does not have have any specific complaints today. Still feeling very tired. Abdominal pain is slightly better than yesterday. General: nontoxic, no distress, appears at stated age Derm: warm, dry Head: atraumatic, normocephalic, symmetric Eyes: EOMI, no lid lag, anicteric sclera Mouth: no lip lesion, mucus membranes moist Cardiovascular: S1S2 reg, no murmur, positive posterior tibial pulse bilateral, Lungs: CTA bilateral, no rhonchi, no rales , no accessory muscle use Abdominal: soft, nontender to palpation, no guarding, no appreciable organomegaly, [address] with serous fluid Ext: no gross muscle atrophy, no edema, no contractures Neuro: CN II-XI grossly intact, no focal neuro deficits Psych: Alert, oriented, appropriate affect Assessment/Plan: Klebsiella Right upper quadrant infected fluid collection Pelvic fluid collection- sterile Suspect secondary to biliary source - follow up outpatient with surgery in office next week for drain removal - s/p IR drain placement - ID recs: PICC line in place. Continue with 2 weeks of Rocephin and Flagyl. Aneima, possible acute blood loss - follow CBC - iron studies with chronic disease Hematuria, improving Chronic retention and milligan present on arrival - continue to monitor - continue with milligan - flomax - follow-up with his urologist [facility] after discharge. DM 2 - SSI, Levemir, fixed dose - follow BS HTN CAD with hx of [place] P. A fib - Lipitor - metoprolol - entresto resumed - Lasix IV for mild fluid overload from IVF - tele - eliquis AGATHA, resolved Hypotension, resolved No discharge planning places currently awaiting auth. Active Medications Generic Name Dose Route Start Last Admin Trade Name Freq PRN Reason Stop Dose Admin Acetaminophen 650 mg 03/16/22 12:23 03/27/22 03:53 Acetaminophen Tab 325 Mg Tab PO 650 mg Q4H PRN Administration Fever and/ or Mild Pain Apixaban 5 mg 03/22/22 21:00 03/27/22 08:52 Apixaban 5 Mg Tab PO 5 mg BID CLAY Administration Protocol Atorvastatin Calcium 80 mg 03/16/22 21:00 03/25/22 20:45 Atorvastatin 80 Mg Tab PO 80 mg HS CLAY Administration Docusate Sodium 100 mg 03/16/22 12:23 Docusate 100 Mg Cap PO DAILY PRN Constipation Famotidine 20 mg 03/17/22 09:00 03/27/22 08:52 Famotidine 20 Mg Tab PO 20 mg DAILY CLAY Administration Ferrous Sulfate 325 mg 03/22/22 17:30 03/27/22 08:51 Ferrous Sulfate 325 Mg Tab PO 325 mg BID-W/MEALS CLAY Administration Furosemide 40 mg 03/26/22 11:00 03/27/22 08:51 Furosemide 10 Mg/Ml 4 Ml Vial IV 40 mg Q12HR CLAY Administration Lactated Ringer's 1,000 mls @ 50 mls/hr 03/23/22 15:00 03/27/22 03:24 Lactated Ringers IV Not Given .Q20H CLAY Cefepime HCl 2 gm/ Sodium 100 mls @ 25 mls/hr 03/26/22 11:00 03/27/22 11:46 Chloride IVPB 25 mls/hr Q8H CLAY Administration Insulin Aspart 0 unit 03/16/22 07:30 03/27/22 12:29 Insulin Aspart (Novolog) 100 Unit/Ml Vial SQ 2 unit ACHS CLAY Administration Protocol Insulin Aspart 3 unit 03/27/22 07:30 03/27/22 12:29 Insulin Aspart (Novolog) 100 Unit/Ml Vial SQ Not Given AC-TID CLAY Insulin Detemir 22 unit 03/26/22 21:00 03/26/22 21:13 Insulin Detemir (Levemir) 100 Unit/Ml Syr SQ 22 unit HS CLAY Administration Lactobacillus Acidoph/Bulgaricus 1 each 03/22/22 09:00 03/27/22 08:51 Lactobacillus Acidoph & Bulgar 1 Each Packet PO 1 each BID [facility] Administration Levothyroxine Sodium 150 mcg 03/17/22 06:30 03/27/22 05:33 Levothyroxine 75 Mcg Tab PO 150 mcg DAILY@0630 CLAY Administration Metoprolol Tartrate 12.5 mg 03/16/22 21:00 03/27/22 08:51 Metoprolol Tartrate 12.5 Mg Tab PO 12.5 mg BID [facility] Administration Metronidazole 500 mg 03/23/22 22:45 03/27/22 08:51 Metronidazole 500 Mg Tab PO 500 mg TID [facility] Administration Protocol Morphine Sulfate 4 mg 03/15/22 23:53 03/25/22 10:23 Morphine Sulfate 4 Mg/Ml Syringe IV 4 mg Q4HR PRN Administration Severe Pain Naloxone HCl 0.2 mg 03/15/22 23:53 Naloxone 0.4 Mg/Ml 1 Ml Vial IV Q2M PRN Opioid Reversal Ondansetron HCl 4 mg 03/15/22 23:53 Ondansetron 4 Mg/2 Ml Vial IVP Q8HR PRN Nausea And Vomiting Sacubitril/Valsartan 1 each 03/25/22 21:00 03/27/22 08:55 Sacubitril/Valsartan 24 Mg-26 Mg Tablet PO 1 each BID CLAY Administration Tamsulosin HCl 0.4 mg 03/17/22 09:00 03/27/22 08:52 Tamsulosin 0.4 Mg Cap.Er.24h PO 0.4 mg DAILY CLAY Administration Objective - Vital Signs Vital signs: Vital Signs Temp 98.1 F 03/27/22 14:00 Pulse 62 03/27/22 14:00 Resp 18 03/27/22 14:00 BP 113/60 03/27/22 14:00 Pulse Ox 98 03/27/22 14:00 FiO2 Intake & Output 03/26/22 03/27/22 03/27/22 18:59 06:59 18:59 Intake Total 120 Output Total 1650 2000 Balance -1529 Intake: Oral 120 Output: Drainage 100 300 Right Upper Abdomen 100 300 Urine 1550 1700 Other: Voiding Method Indwelling Catheter Indwelling Catheter Indwelling Catheter # Bowel Movements 1 - Labs CBC & Chem 7: 03/27/22 06:58 03/27/22 06:58 Labs: Abnormal Lab Results - Last 24 Hours (Table) 03/26/22 03/26/22 03/27/22 Range/Units 16:42 21:03 06:58 RBC 3.48 L (4.30-5.90) m/uL Hgb 10.1 L (13.0-17.5) gm/dL Hct 31.0 L (39.0-53.0) % Sodium (137-145) mmol/L Potassium (3.5-5.1) mmol/L BUN (9-20) mg/dL Glucose (74-99) mg/dL POC Glucose (mg/dL) 213 H 248 H (70-110) mg/dL Calcium (8.4-10.2) mg/dL Total Protein (6.3-8.2) g/dL Albumin (3.5-5.0) g/dL 03/27/22 03/27/22 03/27/22 Range/Units 06:58 07:11 11:32 RBC (4.30-5.90) m/uL Hgb (13.0-17.5) gm/dL Hct (39.0-53.0) % Sodium 134 L (137-145) mmol/L Potassium 3.4 L (3.5-5.1) mmol/L BUN 33 H (9-20) mg/dL Glucose 131 H (74-99) mg/dL POC Glucose (mg/dL) 124 H 164 H (70-110) mg/dL Calcium 7.7 L (8.4-10.2) mg/dL Total Protein 4.7 L (6.3-8.2) g/dL Albumin 1.8 L (3.5-5.0) g/dL
[2022-03-27 17:01] LABS: Glucose,Whole Blood 219 mg/dL (70-110)
[2022-03-27 17:14] LABS: Glucose,Whole Blood 262 mg/dL (70-110)
[2022-03-27 20:50] LABS: Glucose,Whole Blood 243 mg/dL (70-110)
[2022-03-27] MEDS: INSULIN DETEMIR (LEVEMIR) 100 UNIT/ML SYR SQ SCH (21:30)
[2022-03-27] MEDS: ATORVASTATIN 80 MG TAB PO SCH (21:30)
[2022-03-28] MEDS: CEFEPIME 2 GM in SODIUM CHLORIDE 0.9% 100 ML IVPB SCH ×2 (02:20→10:12)
[2022-03-28 04:51] VITALS: RESP 17
[2022-03-28 06:03] LABS: Glucose,Whole Blood 111 mg/dL (70-110)
[2022-03-28] MEDS: LEVOTHYROXINE 75 MCG TAB PO SCH (06:04)
[2022-03-28] MEDS: INSULIN ASPART (NovoLOG) 100 UNIT/ML VIAL SQ SCH ×4 (06:51→11:51)
--- NOTE | 2022-03-28 07:20 | P.PN ---
Subjective Progress Note Date: 03/27/22 Principal diagnosis: Intra-abdominal abscess Patient is a 81-year-old male presenting to the hospital with abdominal pain with initial concern for possible cholecystitis patient did have evidence of intra-abdominal abscess with a CT-guided drainage culture positive for Klebsiella with repeat CT today shows loculated fluid in the pelvis one of them has been drained and those cultures are so far negative. On today's evaluation that is 03/27/2022, the patient remains to be afebrile, the patient abdominal pain is currently controlled, the patient denies chest pain or shortness of breath or cough no nausea vomiting no diarrhea, patient is feeling somewhat better Objective - Vital Signs Vital signs: Vital Signs Temp 97.7 F 03/27/22 07:33 Pulse 64 03/27/22 07:33 Resp 17 03/27/22 07:33 BP 137/55 03/27/22 07:33 Pulse Ox 95 03/27/22 07:33 FiO2 Intake & Output 03/26/22 03/27/22 03/27/22 18:59 06:59 18:59 Intake Total 120 Output Total 1650 2000 Balance -1530 -1999 Intake: Oral 120 Output: Drainage 100 300 Right Upper Abdomen 100 300 Urine 1550 1700 Other: Voiding Method Indwelling Catheter Indwelling Catheter Indwelling Catheter # Bowel Movements 1 - Exam GENERAL DESCRIPTION: An elderly male lying in bed in no distress RESPIRATORY SYSTEM: Unlabored breathing , decreased breath sounds at bases HEART: S1 S2 regular rate and rhythm , ABDOMEN: Soft , no tenderness EXTREMITIES: No edema feet - Labs CBC & Chem 7: 03/27/22 06:58 03/27/22 06:58 Labs: Abnormal Lab Results - Last 24 Hours (Table) 03/26/22 03/26/22 03/27/22 Range/Units 16:42 21:03 06:58 RBC 3.48 L (4.30-5.90) m/uL Hgb 10.1 L (13.0-17.5) gm/dL Hct 31.0 L (39.0-53.0) % Sodium (137-145) mmol/L Potassium (3.5-5.1) mmol/L BUN (9-20) mg/dL Glucose (74-99) mg/dL POC Glucose (mg/dL) 213 H 248 H (70-110) mg/dL Calcium (8.4-10.2) mg/dL Total Protein (6.3-8.2) g/dL Albumin (3.5-5.0) g/dL 03/27/22 03/27/22 03/27/22 Range/Units 06:58 07:11 11:32 RBC (4.30-5.90) m/uL Hgb (13.0-17.5) gm/dL Hct (39.0-53.0) % Sodium 134 L (137-145) mmol/L Potassium 3.4 L (3.5-5.1) mmol/L BUN 33 H (9-20) mg/dL Glucose 131 H (74-99) mg/dL POC Glucose (mg/dL) 124 H 164 H (70-110) mg/dL Calcium 7.7 L (8.4-10.2) mg/dL Total Protein 4.7 L (6.3-8.2) g/dL Albumin 1.8 L (3.5-5.0) g/dL Assessment and Plan (1) Intra-abdominal fluid collection Current Visit: Yes Status: Acute Code(s): R18.8 - OTHER ASCITES SNOMED Code(s): 201669666 Plan: 1patient presented to hospital abdominal pain in this patient did have abnormal CT followed by ultrasound suggestive of cholecystitis and fluid collection around the gallbladder area in this patient who is status post 2 different drainage procedure done by IR, the fluid collection in the right upper quadrant could correspond to the gallbladder however no clear explanation for the fluid in the lower abdominal area which has been drained on 03/21/2020 with the sensitivities and cultures currently pending. 2patient CT was reviewed with radiologist and no obvious focus for these abscesses were identified discussed with the surgeon on the phone recommending no surgical intervention 3patient has shown clinical improvement with repeat cultures has been negative so far initial culture with Klebsiella which is sensitive to ciprofloxacin, patient did get a PICC line and hence will recommend Rocephin 2 g daily along with oral Flagyl 500 mg 3 times a day for 2 weeks on discharge and close outpatient follow-up Time with Patient: Less than 30
[2022-03-28] MEDS: FERROUS SULFATE 325 MG TAB PO SCH (07:26)
[2022-03-28] MEDS: metroNIDAZOLE 500 MG TAB PO SCH (07:26)
[2022-03-28] MEDS: METOPROLOL TARTRATE 12.5 MG TAB PO SCH (07:26)
[2022-03-28] MEDS: TAMSULOSIN 0.4 MG CAP.ER.24H PO SCH (07:26)
[2022-03-28] MEDS: APIXABAN 5 MG TAB PO SCH (07:26)
[2022-03-28] MEDS: FAMOTIDINE 20 MG TAB PO SCH (07:27)
[2022-03-28] MEDS: LACTOBACILLUS ACIDOPH & BULGAR 1 EACH PACKET PO SCH (07:27)
[2022-03-28] MEDS: SACUBITRIL/VALSARTAN 24 MG-26 MG TABLET PO SCH (07:27)
[2022-03-28 07:28] LABS: African American GFR (CKD) >90 (>60 ml/min/1.73 sqM); Anion Gap 4 mmol/L; Blood Urea Nitrogen 31 mg/dL (9-20); Calcium 7.5 mg/dL (8.4-10.2); Carbon Dioxide 29 mmol/L (22-30); Chloride 102 mmol/L (98-107); Glucose 86 mg/dL (74-99); Magnesium 1.7 mg/dL (1.6-2.3); Non-African American GFR(CKD) 82 (>60 ml/min/1.73 sqM); Potassium 3.5 mmol/L (3.5-5.1); Sodium 135 mmol/L (137-145)
[2022-03-28] MEDS: FUROSEMIDE 10 MG/ML 4 ML VIAL IV SCH (08:47)
--- NOTE | 2022-03-28 10:07 | P.DS ---
Providers Date of admission: 03/17/22 13:52 Expected date of discharge: 03/28/22 Attending physician: Janie Roblero MD Consults: 03/16/22 00:36 Consult Physician Routine Consulting Provider: Gary Reynoso Consult Reason/Comments: pinky Do you want consulting provider notified?: Yes 03/23/22 11:20 Consult Physician Routine Consulting Provider: Sidra Ling Consult Reason/Comments: antibiotics Do you want consulting provider notified?: Yes Primary care physician: Physician Nonstaff Hospital Course: Discharge Diagnosis: Klebsiella Right upper quadrant infected fluid collection Pelvic fluid collection- sterile Suspect secondary to biliary source Aneima, possible acute blood loss wiht chronic disease underlying Hematuria, improving Chronic retention and milligan present on arrival -follow-up with his urologist in [facility] after discharge. DM 2 HTN CAD with hx of RI P. A fib AGATHA, resolved Hypotension, resolved Hospital Course: Patient is an 81-year-old male with A. fib on Eliquis, hypertension, hyperlipidemia, type II DM, CAD, and hypothyroidism who was transferred to the emergency room from [facility] for complaints of abdominal pain. He underwent a CT abdomen and pelvis at the transferring facility which revealed mild gallbladder wall thickening with cholelithiasis along with a well- circumscribed lobulated peripherally enhancing collection in the anterior aspect of the abdomen extending inferiorly into the pelvis 3.1 x 7.9 cm, possibly due to gallbladder perforation or infectious/inflammatory colitis. Laboratory evaluation was remarkable for platelet count of 139, BUN 36, creatinine 1.4, unremarkable LFTs, lactic acid 2.0 from the transferring facility which improved to 1.2 upon repeat. He was seen by surgery. He underwent gallbladder ultrasound showed cholelithiasis concern for acute cholecystitis as well as a complex right abdomen fluid collection. Surgery recommended drain placement IR which was completed on 03/17/22, he had a CT abd and pelvis on03/20 which showed contracted gallbladder with wall thickening, 2 loculated fluid colleection in the pelivs, ascitie, and decreased size of right ower quadrant fluid collection. He had a second drain placed in the pelvic fluid collection on 03/21 the fluid from this collection was sterile. He continued to improved and surgery signed off. He had a PICC line placed and ID recommended 2 weeks of rocephin and flagyl and then follow-up with surgery for drain removal and possible further gallbladder evaluation. Follow-up: Dr. Santos in 1 week, his urologist in [facility], maintain milligan, check blood sugar 3 times daily, recheck blod work in 1 week. Patient seen and examined at bedside. He is feeling good today. Denies any abdominal pain. No other complaints currently. Vital signs reviewed and stable. General: nontoxic, no distress, appears at stated age Derm: warm, dry Head: atraumatic, normocephalic, symmetric Eyes: EOMI, no lid lag, anicteric sclera Mouth: no lip lesion, mucus membranes moist Cardiovascular: S1S2 reg, no murmur, positive posterior tibial pulse bilateral, Lungs: Decreased bs bilateral, no rhonchi, no rales , no accessory muscle use Abdominal: soft, nontender to palpation, no guarding, no appreciable organomegaly, [address] with serosanguanous fluid Ext: no gross muscle atrophy, 1+ edema, no contractures Neuro: CN II-XI grossly intact, no focal neuro deficits Psych: Alert, oriented, appropriate affect A total of 37 minutes of time were spent preparing this complex discharge summary. Patient was discharged on 03/28/22. Patient Condition at Discharge: Stable Plan - Discharge Summary Discharge Rx Participant: No New Discharge Prescriptions: New Sacubitril/Valsartan [Entresto 24 mg-26 mg Tablet] 1 each PO BID tab metroNIDAZOLE [Flagyl] 500 mg PO TID 13 Days tab Ferrous Sulfate [Iron (65 MG Elemental)] 325 mg PO BID-W/MEALS tab Lactobacillus Acidoph & Bulgar [Lactinex] 1 each PO BID packet Insulin Detemir (Levemir) [Levemir] 22 unit SQ HS each Cefepime [Maxipime] 2 gm IVPB Q8H 13 Days each INSULIN ASPART (NovoLOG) [NovoLOG (formulary)] 3 unit SQ AC-TID each Continue Acetaminophen [Tylenol] 650 mg PO Q4H PRN PRN Reason: Fever And/ Or Pain Potassium Chloride [Potassium Chloride ER] 10 meq PO HS Tamsulosin HCl [Flomax] 0.4 mg PO DAILY Apixaban [Eliquis] 5 mg PO BID #60 tab Aspirin EC [Ecotrin Low Dose] 81 mg PO HS Atorvastatin [Lipitor] 80 mg PO HS Docusate [Colace] 100 mg PO DAILY PRN PRN Reason: Constipation Famotidine [Pepcid] 20 mg PO DAILY Levothyroxine Sodium [Synthroid] 150 mcg PO DAILY Metoprolol Tartrate [Lopressor] 12.5 mg PO BID Changed Furosemide [Lasix] 40 mg PO DAILY #30 tab Discontinued Sacubitril/Valsartan [Entresto 49 mg-51 mg Tablet] 1 tab PO BID Insulin Glargine [Lantus Vial] 14 unit SQ HS #0 hydrALAZINE HCL [Apresoline] 25 mg PO TID #90 tab Discharge Medication List Acetaminophen [Tylenol] 650 mg PO Q4H PRN 01/01/22 [History] Aspirin EC [Ecotrin Low Dose] 81 mg PO HS 01/01/22 [History] Atorvastatin [Lipitor] 80 mg PO HS 01/01/22 [History] Docusate [Colace] 100 mg PO DAILY PRN 01/01/22 [History] Famotidine [Pepcid] 20 mg PO DAILY 01/01/22 [History] Levothyroxine Sodium [Synthroid] 150 mcg PO DAILY 01/01/22 [History] Metoprolol Tartrate [Lopressor] 12.5 mg PO BID 01/01/22 [History] Potassium Chloride [Potassium Chloride ER] 10 meq PO HS 01/01/22 [History] Tamsulosin HCl [Flomax] 0.4 mg PO DAILY 01/01/22 [History] Apixaban [Eliquis] 5 mg PO BID #60 tab 01/03/22 [Rx] Cefepime [Maxipime] 2 gm IVPB Q8H 13 Days each 03/28/22 [Rx] Ferrous Sulfate [Iron (65 MG Elemental)] 325 mg PO BID-W/MEALS tab 03/28/22 [Rx] Furosemide [Lasix] 40 mg PO DAILY #30 tab 03/28/22 [Rx] INSULIN ASPART (NovoLOG) [NovoLOG (formulary)] 3 unit SQ AC-TID each 03/28/22 [Rx] Insulin Detemir (Levemir) [Levemir] 22 unit SQ HS each 03/28/22 [Rx] Lactobacillus Acidoph & Bulgar [Lactinex] 1 each PO BID packet 03/28/22 [Rx] Sacubitril/Valsartan [Entresto 24 mg-26 mg Tablet] 1 each PO BID tab 03/28/22 [Rx] metroNIDAZOLE [Flagyl] 500 mg PO TID 13 Days tab 03/28/22 [Rx] Follow up Appointment(s)/Referral(s): Cathi Santos DO [Doctor of Osteopathic Medicine] - (7 days) Nonstaff,Physician [Primary Care Provider] - 1-2 days Activity/Diet/Wound Care/Special Instructions: [facility] Activity: as tolerated Diet: carb consistent, heart healthy Special Instructions: Maintain drains until seen by Dr. Santos. please monitor drain output daily and record it to send to appointment with Dr. Santos Please check blood sugars 3 times daily before meals. CBC and BMP in 1 weeks DX: anemia, hypokalemia follow-up with his urologist in [facility] Maintain chronic milligan for urinary retention. Discharge Disposition: TRANSFER TO SNF/ECF
[2022-03-28 11:45] LABS: Glucose,Whole Blood 122 mg/dL (70-110)
[2022-03-28 14:13] VITALS: BP 112/64; PULSE 87; TEMP 98.4
[2022-03-28] MEDS: LACTATED RINGERS 1,000 ML IV SCH (14:43)
== END 2022-03-28 15:27 | DRG 444 ==
LOC: EC 23:15 → 6NMEDSUR 23:53 → 3SCARD 03-16 22:02 → OBSVTOIN 03-17 13:52 → 4SSUR 03-22 07:57
PROVIDERS: ADMIT Internal Medicine; ATTEND Internal Medicine
PROC: 0W9G30Z Drainage of Peritoneal Cavity with Drainage Device, Percutaneous Approach (ICD-10-PCS; 2022-03-17)
PROC: 02HV33Z Insertion of Infusion Device into Superior Vena Cava, Percutaneous Approach (ICD-10-PCS; principal; 2022-03-26 07:30)
DX: K80.00 Calculus of gallbladder with acute cholecystitis without obstruction (principal); K65.1 Peritoneal abscess; D62 Acute posthemorrhagic anemia; N17.9 Acute kidney failure, unspecified; R18.8 Other ascites; I48.20 Chronic atrial fibrillation, unspecified; N18.2 Chronic kidney disease, stage 2 (mild); K59.00 Constipation, unspecified; B96.1 Klebsiella pneumoniae [K. pneumoniae] as the cause of diseases classified elsewhere; L89.152 Pressure ulcer of sacral region, stage 2; D63.8 Anemia in other chronic diseases classified elsewhere; R31.9 Hematuria, unspecified; D50.9 Iron deficiency anemia, unspecified; E03.9 Hypothyroidism, unspecified; E11.22 Type 2 diabetes mellitus with diabetic chronic kidney disease; I95.9 Hypotension, unspecified; E78.5 Hyperlipidemia, unspecified; E87.70 Fluid overload, unspecified; I12.9 Hypertensive chronic kidney disease with stage 1 through stage 4 chronic kidney disease, or unspecified chronic kidney disease; I25.10 Atherosclerotic heart disease of native coronary artery without angina pectoris; I25.2 Old myocardial infarction; Z79.01 Long term (current) use of anticoagulants; Z79.4 Long term (current) use of insulin; Z79.890 Hormone replacement therapy; Z79.899 Other long term (current) drug therapy; Z82.49 Family history of ischemic heart disease and other diseases of the circulatory system; Z85.46 Personal history of malignant neoplasm of prostate; Z95.1 Presence of aortocoronary bypass graft; Z88.0 Allergy status to penicillin
CPT/HCPCS: 36415; 36573; 71045; 74018; 74176; 75989; 76705; 76770; 77012; 80048; 80053; 81001; 82150; 82565; 82728; 83540; 83550; 83605; 83615; 83690; 83735; 84100; 85025; 85027; 85610; 85730; 87040; 87070; 87075; 87077; 87086; 87186; 87205; 89050; 94760; 96361; 96374; 96375; 99284